=== PATIENT | male | born 1950 | race Caucasian/White ===

== ENCOUNTER 2018-04-20 10:20 | Emergency (ER) | payer MEDICARE ==
--- OUTSIDE RECORDS SUMMARY | 2018-04-20 10:32 | XMS REPORT ---
:1950 External Reference #:[id number] Author Organization [employer] Address [address] [place] [address] [place] [address] Phone [phone] Care Team Providers Name Role Phone Elizabeth Real AU.D. 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 Active Onset: 11/28/2014 Sensorineural hearing loss Laith Becerril M.D. Active Onset: 11/28/2014 Dysfunction of eustachian tube Laith Becerril M.D. Active Family History Date Family Member(s) Problem(s) Comments General Stroke General Cancer General Diabetes Social History Type Date Description Comments Lives With Spouse Occupation Retired Cigarette Use Quit 35 Years Ago Cigars Never Smoked Cigars Pipe Never Smoked A Pipe Smokeless Tobacco Never Used Smokeless Tobacco ETOH Use Denies alcohol use Smoking Patient has never smoked Allergies, Adverse Reactions, Alerts Date Description Reaction Status Severity Comments 11/28/2014 Penicillin hives, tongue swelling active 11/28/2014 Nortriptyline active 03/25/2018 Gabapentin active Medications Medication Date Status Form Strength Qnty SIG Indications Ordering Provider Metformin HCL Active Tablets 500mg TK 2 TS Unknown 000 PO bid. Furosemide 00/00/0 Active Tablets 40mg TK 1 T Unknown 000 PO qd Divalproex Active Tablets ER 250mg TK 3 TS Unknown Sodium ER 000 24HR PO bid Transderm-Scop Active Patches 1.5mg Place 1 Unknown 000 72HR Patch Onto The Skin Every 3 Days. Atorvastatin Active Tablets 10mg TK 1 T Unknown Calcium 000 PO qd Losartan Active Tablets 100mg TK 1 T Unknown Potassium 000 PO qd Potassium Active Tablets ER 20Meq TK 2 TS Unknown Chloride Angela ER 000 PO qd Amlodipine Active Unknown Besylate 000 Brilinta Active Unknown 000 Bydureon Active Unknown 000 Hydralazine HCL Active Unknown 000 Lamictal Active Unknown 000 Synthroid Active Unknown 000 Wellbutrin SR Active Unknown 000 Glipizide Hx Tablets 5mg TK 1 T Unknown 000 - PO qd 018 Lamotrigine Hx Tablets 100mg TK 1 T Unknown 000 - PO bid 018 Taztia XT Hx Caps ER 120mg TK One C Unknown 000 - 24HR PO qd 018 Vital Signs Date Vital Result Comment 03/25/2018 Height 65.25 inches 5'5.25" Weight 238.00 lb BP Systolic 118 mmHg BP Diastolic 66 mmHg Respiratory Rate 20 /min Body Temperature 97.1 F Pain Level 5 BMI (Body Mass Index) 39.3 kg/m2 11/28/2014 Heart Rate 78 /min BP Systolic Sitting 140 mmHg BP Diastolic Sitting 90 mmHg Results Description No Information Procedures Date CPT Code Description Status 11/28/2014 87055 Tympanometry Completed Encounters Type Date Location Provider CPT E/M Dx Office Visit 02/23/2018 11:40a [facility] Kim Villegas M.D. 05498 D64.9 Of [facility] AT [place] R63.4 R63.0 Z85.72 Office Visit 11/28/2014 3:00p [facility] Becerril, [address] [phone] C.M.[facility]da AT [place] Luis Miguel [phone] Plan of Care 03/25/2018 - Dayami Muse M.D.M25.562 Pain in left kneeNew Therapy:Physical TherapyFollow up:Follow up: [employer] authorization needed. Follow up appointment [place].M25.462 Effusion, left kneeM17.12 Unilateral primary osteoarthritis, left knee
[2018-04-20 11:27] LABS: ABS Basophils 0 10^3/ul (0-0.2); ABS Eosinophils 0.1 10^3/ul (0-0.6); ABS Lymphocytes 1.2 10^3/ul (1.0-4.8); ABS Monocytes 0.6 10^3/ul (0-0.8); ABS Neutrophils 10.3 10^3/ul (1.5-7.7); ABS Nucleated RBC 0 10^3/ul; Eosinophil % 0.6 % (0-6); Hematocrit 34 % (42-52); Hemoglobin 10.9 g/dl (14.0-18.0); Mean Corpuscular HGB Conc 32 g/dl (31-36); Mean Corpuscular Hemoglobin 24 pg (27-31); Mean Corpuscular Volume 75 fL (80-94); Mean Platelet Volume 7.8 um3 (7.4-10.4); Nucleated Red Blood Cells % 0.1; Platelet Count 428 10^3/ul (150-450); Red Blood Count 4.59 10^6/ul (4.00-5.40); Red Cell Distribution Width 20 % (10.5-15); White Blood Count 12.1 10^3/ul (3.5-10.8)
[2018-04-20 11:48] LABS: EGFR Non-African American 41.7 (>60)
[2018-04-20] MEDS ORDERED: NS 0.9% 500 ML* 500 ML IV ONE (12:06)
--- NOTE | 2018-04-20 12:29 | ED ---
Shortness of Breath - HPI Summary HPI Summary: This is scribe Raoul Benito documenting for attending Dr. Toni Mir MD. Dr. Luz Jeffers recieved report from patient's PCP, Dr. Villegas, that patient has cough, SOB, right-side discomfort, right-side pleural effusion. PCP recommends admission. A 67 y/o male presents to ED c/o difficulty breathing (SOB) since Friday (5 days ago). Additionally c/o generalized sickness, "feeling crappy". Currently, the patient still has SOB and it has been getting worse. In the ED room, the patient has a pulse of 75 BPM, O2 saturation of 98% and blood pressure of 103/ 56. As per triage, "difficulty breathing, states "feels like my right lung isn' t filling". pain to left abd with coughing. no recent illness, no COPD, x2 stents". According to the patient, he has had anemia and weakness for quite a while. Additionally he cannot "take a breathe" as his right lung is half-filled with fluid. It was noted in ED room that the patient has an unproductive cough, however, the patient stated that he has not had a productive cough. As per , the patient was clammy coming in by private car. PCP Dr. Villegas treated patient for lymphoma. She tested him because of his anemia and she wanted to make sure blood was normal. PMHx of bone marrow biopsy (2-3 weeks ago), Colonoscopy and Endoscopy on (4 days ago) at [facility] (to check for bleeding). Additional PMHx of 2 stents. Patient noted he lost weight recently. No current treatment from Dr. Villegas (sees every couple of weeks, previously it was twice a year). Denies any CHF. - History of Current Complaint Chief Complaint: EDShortnessOfBreath Time Seen by Provider: 04/20/18 10:39 Hx Obtained From: Patient Onset/Duration: Sudden Onset - 5 days ago, Lasting Days, Still Present, Worse Since - 5 days ago Timing: Constant Current Severity: None Dyspnea At: Rest Aggrevating Factors: Nothing Alleviating Factors: Nothing Associated Signs & Symptoms: Cough (Nonproductive) - In ED room, but patient denies it., Diaphoresis - Clammy upon arrival to ED. - Allergy/Home Medications Allergies/Adverse Reactions: Allergies Allergy/AdvReac Type Severity Reaction Status Date / Time fentanyl Allergy Hives Verified 04/20/18 10:30 gabapentin Allergy Swelling Verified 04/20/18 10:30 Iodinated Contrast- Oral and Allergy Hives Verified 04/20/18 10:30 IV Dye nortriptyline Allergy Swelling Verified 04/20/18 10:30 Of Face,Lips,& Throat Penicillins Allergy Hives Verified 04/20/18 10:30 Home Medications: Home Medications Aspirin EC TAB* [Ecotrin EC Low Dose 81 MG*] 81 mg PO DAILY 04/20/18 [History Confirmed 04/20/18] BuPROPion XL* [Bupropion XL*] 300 mg PO DAILY 04/20/18 [History Confirmed ] Furosemide TAB* [Lasix TAB*] 40 mg PO DAILY 04/20/18 [History Confirmed 04/20/18 ] Levothyroxine TAB* [Synthroid 75 MCG TAB*] 75 mcg PO DAILY 04/20/18 [History Confirmed 04/20/18] Losartan TAB* [Cozaar TAB*] 100 mg PO DAILY 04/20/18 [History Confirmed 04/20/18 ] Metoprolol Tartrate TAB* [Lopressor TAB*] 25 mg PO BID 04/20/18 [History Confirmed 04/20/18] Multivitamins/Minerals TAB* [Theragran/minerals TAB*] 1 tab PO DAILY 04/20/18 [ History Confirmed 04/20/18] Pioglitazone HCl [Actos] 45 mg PO DAILY 04/20/18 [History Confirmed 04/20/18] Potassium Chlor TAB* [Potassium Chlor TAB 20 MEQ*] 40 meq PO DAILY 04/20/18 [ History Confirmed 04/20/18] Rosuvastatin (NF) [Crestor (NF)] 40 mg PO DAILY 04/20/18 [History Confirmed 03/02] Ticagrelor* [Brilinta 90 MG*] 90 mg PO BID 04/20/18 [History Confirmed 04/20/18] amLODIPine TAB* [Norvasc 5 mg TAB*] 10 mg PO DAILY 04/20/18 [History Confirmed 04/20/18] lamoTRIgine TAB(*) [Lamictal TAB(*)] 100 mg PO BID 04/20/18 [History Confirmed 04/20/18] metFORMIN* [Glucophage 1000 MG TAB *] 1,000 mg PO BID 04/20/18 [History Confirmed 04/20/18] PMH/Surg Hx/FS Hx/Imm Hx Endocrine/Hematology History: Reports: Hx Diabetes Denies: Hx Systemic Lupus Erythematosus Cardiovascular History: Reports: Hx Hypertension Denies: Hx Congestive Heart Failure, Hx Pacemaker/ICD Respiratory History: Reports: Hx Asthma, Other Respiratory Problems/Disorders - HX OF LYMPHOMA IN REMISSION GI History: Reports: Other GI Disorders - PT HAD A PERIOD ON NAUSEA/VOMMITING DUE TO A MEDICATION History: Denies: Hx Dialysis, Hx Renal Disease Musculoskeletal History: Denies: Hx Rheumatoid Arthritis Sensory History: Denies: Hx Hearing Aid Psychiatric History: Reports: Hx Panic Disorder - Cancer History Cancer Type, Location and Year: MELANOMA AND LYMPHOMA. Hx Chemotherapy: Yes - Surgical History Surgery Procedure, Year, and Place: PROCEDURES REMOVAL OF SKIN CANCER dx WITH MELANOMA 2006. RECENTLY HAD NUMEROUS SPOTS REMOVED AND IS WAITING FOR THE RESULTS. NO RECENT SX. MULTIPLE SX FOR LYMPHOMA. shoulder surgery Infectious Disease History: No Infectious Disease History: Denies: Traveled Outside the [place] in Last 30 Days - Family History Known Family History: Positive: Cardiac Disease, Hypertension, Diabetes - Social History Alcohol Use: None Substance Use Type: Reports: None Smoking Status (MU): Former Smoker Type: Cigarettes, eCigarettes Amount Used/How Often: 2-3 PPD Length of Time of Smoking/Using Tobacco: 19 Years Have You Smoked in the Last Year: No Review of Systems Positive: Skin Diaphoresis - Upon arrival to ED. Negative: Fever, Chills Negative: Erythema Negative: Sore Throat Negative: Chest Pain Positive: Shortness Of Breath. Negative: Cough - Nonproductive cough in ED, patient denies. Negative: Abdominal Pain, Vomiting, Nausea Negative: dysuria, hematuria Negative: Myalgia, Edema Negative: Rash Neurological: Other - NEGATIVE: Dizziness Positive: Weakness - From anemia All Other Systems Reviewed And Are Negative: Yes Physical Exam - Summary Physical Exam Summary: Constitutional: Well-developed, Well-nourished, Alert. (-) Distressed Skin: Warm, Dry HENT: Normocephalic; Atraumatic Eyes: Conjunctiva normal Neck: Musculoskeletal ROM normal neck. (-) JVD, (-) Stridor, (-) Tracheal deviation Cardio: Rhythm regular, rate normal, Heart sounds normal; Intact distal pulses; The pedal pulses are 2+ and symmetric. Radial pulses are 2+ and symmetric. (-) Murmur Pulmonary/Chest wall: (-) Wheezes, (-) Rales. Absent breathe sounds on right lower lung. Abd: Soft, (-) epigastric tenderness, (-) Distension, (-) Guarding, (-) Rebound Musculoskeletal: (-) Edema Lymph: (-) Cervical adenopathy Neuro: Alert, Oriented x3 Psych: Mood and affect Normal Triage Information Reviewed: Yes Vital Signs On Initial Exam: Initial Vitals Temp Pulse Resp BP Pulse Ox 97.6 F 75 22 131/72 96 04/20/18 10:26 04/20/18 10:26 04/20/18 10:26 04/20/18 10:26 04/20/18 10:26 Vital Signs Reviewed: Yes Diagnostics - Vital Signs Vital Signs Temp Pulse Resp BP Pulse Ox 04/20/18 12:00 71 13 96/57 98 04/20/18 11:29 74 109/60 97 04/20/18 11:14 97 04/20/18 11:01 19 04/20/18 11:00 74 12 103/56 97 04/20/18 10:31 74 19 96 04/20/18 10:29 74 13 131/72 96 04/20/18 10:26 97.6 F 75 22 131/72 96 - Laboratory Lab Results: Lab Results 04/20/18 04/20/18 04/20/18 Range/Units 11:06 11:06 11:06 WBC 12.1 H (3.5-10.8) 10^3/ul RBC 4.59 (4.00-5.40) 10^6/ul Hgb 10.9 L (14.0-18.0) g/dl Hct 34 L (42-52) % MCV 75 L (80-94) fL MCH 24 L (27-31) pg MCHC 32 (31-36) g/dl RDW 20 H (10.5-15) % Plt Count 428 (150-450) 10^3/ul MPV 7.8 (7.4-10.4) um3 Neut % (Auto) 84.5 H (38-83) % Lymph % (Auto) 10.0 L (25-47) % [place] % (Auto) 4.6 (0-7) % Eos % (Auto) 0.6 (0-6) % Baso % (Auto) 0.3 (0-2) % Absolute Neuts (auto) 10.3 H (1.5-7.7) 10^3/ul Absolute Lymphs (auto) 1.2 (1.0-4.8) 10^3/ul Absolute Monos (auto) 0.6 (0-0.8) 10^3/ul Absolute Eos (auto) 0.1 (0-0.6) 10^3/ul Absolute Basos (auto) 0 (0-0.2) 10^3/ul Absolute Nucleated RBC 0 10^3/ul Nucleated RBC % 0.1 Sodium 134 L (135-145) mmol/L Potassium 4.3 (3.5-5.0) mmol/L Chloride 100 L (101-111) mmol/L Carbon Dioxide 25 (22-32) mmol/L Anion Gap 9 (2-11) mmol/L BUN 22 (6-24) mg/dL Creatinine 1.65 H (0.67-1.17) mg/dL Est GFR ( Amer) 50.4 (>60) Est GFR (Non-Af Amer) 41.7 (>60) BUN/Creatinine Ratio 13.3 (8-20) Glucose 366 H (70-100) mg/dL Lactic Acid 2.3 H* (0.5-2.0) mmol/L Calcium 9.3 (8.6-10.3) mg/dL Total Bilirubin 0.30 (0.2-1.0) mg/dL AST 11 L (13-39) U/L ALT 15 (7-52) U/L Alkaline Phosphatase 77 (34-104) U/L Troponin I 0.00 (<0.04) ng/mL Total Protein 6.4 (6.4-8.9) g/dL Albumin 3.0 L (3.2-5.2) g/dL Globulin 3.4 (2-4) g/dL Albumin/Globulin Ratio 0.9 L (1-3) Result Diagrams: 04/20/18 11:06 04/20/18 11:06 Lab Statement: Any lab studies that have been ordered have been reviewed, and results considered in the medical decision making process. - Radiology CXR Radiology Interpretation Completed By: Radiologist - CONSOLIDATIVE CHANGES AND/ OR PLEURAL FLUID RIGHT LUNG BASE. SUGGEST FOLLOW-UP. ED physician reviewed this radiology report. - EKG 1046 Cardiac Rate: NL - 72 BPM EKG Rhythm: Sinus Rhythm EKG Interpretation: RBBB, negative STEMI. Re-Evaluation - Re-Evaluation First Eval Re-Evaluation Time: 13:44 Comment: Patient is walking around ED with nursing staff. Course/Dx - Course Course Of Treatment: Dr. Luz Jeffers recieved report from patient's PCP, Dr. Villegas, that patient has cough, SOB, right-side discomfort, right-side pleural effusion. PCP recommends admission. A 67 y/o male presents to ED c/o difficulty breathing (SOB) since Friday (5 days ago). Additionally c/o generalized sickness, "feeling crappy". Currently, the patient still has SOB and it has been getting worse. In the ED room, the patient has a pulse of 75 BPM , O2 saturation of 98% and blood pressure of 103/56. A EKG revealed NSR of 72 BPM, RBBB, negative STEMI. A CXR revealed consolidative changes and/or pleural fluid right lung base. Suggest follow-up. In the ED course, the patient recieved IV fluids. During reevaluation, the patient was walking around ED with nursing staff. Patient care was discussed with Dr. Villegas who stated patient' s bone marrow biopsy was negative. Requested any pleural effusion sent to cytology and flow-cytometry. Additionally, patient care was discussed with Dr. Caldwell who accepts patient for admission. Patient will be admitted with a diagnosis of pleural effusion. Patient is agreeable with this plan. - Diagnoses Provider Diagnoses: Pleural effusion - Physician Notifications Discussed Care of Patient With: Kim Villegas Time Discussed With Above Provider: 12:24 Instructed by Provider To: Other - Bone marrow biopsy was negative. Requested any pleural effusion sent to cytology and flow-cytometry. CONSULT at [address] Caldwell who accepts patient for admission. Discharge - Sign-Out/Discharge Documenting (check all that apply): Patient Departure - ADMIT - Discharge Plan Condition: Stable Disposition: ADMITTED TO [facility] Patient Education Materials: Pleural Effusion (GEN) Referrals: Rojas Gaston MD [Medical Doctor] - 04/21/18 10:15 am Michele Wallace MD [Primary Care Provider] - (4-7 days) Additional Instructions: 1. Activity as tolerated. 2. Return to the ER for fever, chills, severe chest pain, worsened shortness of breath or any other concerning issues.
--- NOTE | 2018-04-20 15:20 | RAD ---
INDICATION: Short of breath COMPARISON: November 07, 2015 TECHNIQUE: An AP portable view obtained at 1135 hours is submitted. FINDINGS: Bones/Soft Tissues: There are no acute bony findings. Cardiomediastinal: The heart is normal in size. Lungs: There is airspace disease in the lower one half of the right lung base which is likely a combination of pleural fluid and compression atelectasis or infiltrate. The right upper chest and left hemithorax are clear. Pleura: As above. No left-sided effusion. Other: None IMPRESSION: CONSOLIDATIVE CHANGES AND/OR PLEURAL FLUID RIGHT LUNG BASE. SUGGEST FOLLOW-UP.
[2018-04-20 15:47] VITALS: BP 111/69
--- NOTE | 2018-04-20 20:03 | CONS ---
CC: Dr. Wallace; Dr. Moy; Dr. Villegas * CONSULTATION REPORT: DATE OF CONSULT: 04/20/18 - EMERGENCY DEPT PRIMARY CARE PROVIDER: Dr. Wallace. DELI CLERK: Dr. Moy. ONCOLOGIST: Dr. Villegas. CHIEF COMPLAINT: Shortness of breath. HISTORY OF PRESENT ILLNESS: Mr. Baugh is a 67-year-old male who has a history of non-Hodgkin's lymphoma that has been felt to be in remission, followed up recently with Dr. Villegas with a bone marrow biopsy; type 2 diabetes; hypertension; coronary artery disease and hyperlipidemia who presents to the emergency room with complaints of shortness of breath. The patient states that he has been worked up recently for anemia of unclear cause. He underwent colonoscopy and EGD this past in [place] that were reportedly negative. He notes that since the Friday of last week he has felt short of breath. This has continued through early today; however, currently he states that he feels much improved. The patient does report sleeping in a chair for the last 4 months, but not due to shortness of breath issues, but due to a left rotator cuff injury after a fall. The patient states that he is down approximately 30 pounds since December of this year and 40 pounds this year unintentionally. He denies any fevers or chills. He denies any lower extremity swelling. He does admit to a dry cough that began the Friday prior to admission. He denies any recent respiratory illnesses even dating back a few weeks. He has not had a febrile illness during that period of time either. PAST MEDICAL HISTORY: 1. History of non-Hodgkin's lymphoma. 2. Type 2 diabetes. 3. Hypertension. 4. Hyperlipidemia. 5. Coronary artery disease. PAST SURGICAL HISTORY: 1. Left shoulder surgery. 2. Melanoma removal. 3. Lymph node biopsy. MEDICATIONS: 1. Bupropion XL 300 mg p.o. daily. 2. Lamictal 100 mg p.o. b.i.d. 3. Synthroid 75 mcg p.o. daily. 4. Metformin 1000 mg p.o. b.i.d. 5. Losartan 100 mg p.o. daily. 6. Potassium chloride 40 mEq p.o. daily. 7. Lasix 40 mg p.o. daily. 8. Multivitamin 1 tab p.o. daily. 9. Aspirin 81 mg p.o. daily. 10. Brilinta 90 mg p.o. b.i.d. 11. Actos 45 mg p.o. daily. 12. Amlodipine 10 mg p.o. daily. 13. Crestor 40 mg p.o. daily. 14. Metoprolol tartrate 25 mg p.o. b.i.d. ALLERGIES: FENTANYL, GABAPENTIN, IODINATED CONTRAST, NORTRIPTYLINE, PENICILLIN. FAMILY HISTORY: Mom in her 70s of lymphoma. Dad also in his 70s of pancreatic cancer. SOCIAL HISTORY: The patient is a former smoker, he quit approximately 35 years ago, he smoked 2 to 3 packs per day for 10 to 12 years. He denies any alcohol use. He previously worked as an quality improvement engineer. He is . He has 2 children. His , Mark, would be his surrogate decision maker. REVIEW OF SYSTEMS: A complete 11-system review of systems is obtained. Pertinent positives and negatives are as HPI and in addition the patient does complain of anorexia over the last 4 months, occasional palpitations and vomiting when he gets into a coughing fit. Additionally, the patient complains of depression. The rest of the review of systems is negative. PHYSICAL EXAM: Blood pressure 111/69, pulse 72, respirations 18, temp 98, O2 sat 98% on room air. General: The patient is a well-developed middle-aged male seen sitting up in the stretcher, in no acute distress. HEENT: Pupils are equal and round. Extraocular muscles are intact. Oropharynx is clear. Oral mucosa is moist. The patient has perhaps some mild adenopathy felt within the right submandibular region. He states that his lymph nodes will get larger in size and then shrink from time to time at home. Cardiac: Normal S1, S2. Regular rate and rhythm. I do not appreciate any murmurs. There is no lower extremity edema. Pulmonary: Breath sounds are absent approximately two-thirds of the way up on the right, otherwise lungs are clear. Abdomen: Bowel sounds are present. Abdomen is soft, nontender, and nondistended. Musculoskeletal: There is no cyanosis or clubbing of the digits. There is full active range of motion of all 4 extremities. Skin is warm and dry. There are no rashes. Neuro : Cranial nerves II through XII are grossly intact. Sensation is intact to light touch throughout. Strength is 5/5 and symmetric in both upper and lower extremities bilaterally. Psych: The patient is alert. He is oriented x3. Affect appears appropriate. DIAGNOSTIC STUDIES/LAB DATA: WBC 12.1, hemoglobin 10.9, hematocrit 34, platelets 428,000. Sodium 134, potassium 4.3, chloride 100, CO2 of 25, BUN 22, creatinine 1.65, glucose 366, lactic acid 2.3, calcium 9.3. Bilirubin 0.3, AST 11, ALT 15, alk phos 77. Troponin 0. BNP 38. Albumin 3.0. EKG reveals a right bundle branch block and normal sinus rhythm. Chest x-ray reveals consolidative change and/or pleural fluid right lung base. ASSESSMENT AND PLAN: Mr. Baugh is a 67-year-old male who is sent to the emergency room from his primary care provider's office with complaints of shortness of breath and moderate-sized pleural effusion. 1. Probable right pleural effusion. Based on chest x-ray, this does appear to be a pleural effusion; however, prior to undergoing thoracentesis, perhaps ultrasound imaging would be useful to determine this truly is a large pocket of fluid. The etiology of the pleural effusion is unclear. The differential diagnosis would include congestive heart failure which seems unlikely given his low BNP, malignancy which is a potential given his history and infectious which also seems unlikely as the patient does not report any infectious symptoms and appears well despite having this probable effusion. The patient is on Brilinta making obtaining a thoracentesis somewhat more problematic. I was ultimately able to speak with Dr. Moy, the patient's primary quality control systems manager, who stated that the Brilinta could be held prior to performing the thoracentesis so as the patient can receive both diagnostic and therapeutic tap as opposed to just diagnostic alone. Once the thoracentesis is complete, he could be resumed back on his usual dose of Brilinta. As the patient wished to pursue only 1 attempt at thoracentesis and not 2, the decision was made to discharge the patient home from the emergency room and follow up with Dr. Gaston tomorrow in the clinic for consultation. An appointment has been scheduled with Dr. Gaston for 10:15 a.m. tomorrow, 04/21/18. At that point, the patient could then be scheduled for thoracentesis at his and the surgeon's convenience. 2. Lactic acidosis. I suspect this is from poor oral intake. The patient has also very mildly elevated creatinine above his baseline and low sodium, which also go along with volume depletion. The patient has received IV fluids in the emergency room. His labs will need to be followed up on as an outpatient. 3. Coronary artery disease. As above, the patient can temporarily come off Brilinta to have thoracentesis performed. Ideally, he would remain on aspirin for the procedure. He will also continue on his usual dose of Crestor and metoprolol. 4. Hypertension. The patient's blood pressure is under good control. He will continue on his usual home medication regimen. 5. Type 2 diabetes. The patient will continue on his usual regimen of metformin and Actos. His blood sugar in the emergency room was quite elevated at 366. The patient will need followup with his primary care provider to optimize his diabetes regimen. The patient has been instructed to return to the emergency room if he develops any fevers, chills, severe chest pain, worsening shortness of breath, or any other concerning symptoms. The patient is in agreement with the plan for discharge from the emergency room and has been provided instructions on the followup appointment tomorrow. TIME SPENT: Sixty-five minutes were spent on this consultation, of which greater than half spent [id number] with the patient and his reviewing his history, performing a physical exam, as well as arranging outpatient followup. [id number]/[facility] #: [id number] [place]
== END 2018-04-20 15:47 | disposition home or self-care (01) ==
LOC: ED 10:20
DX: J90 Pleural effusion, not elsewhere classified (principal); I45.10 Unspecified right bundle-branch block; I10 Essential (primary) hypertension; E11.9 Type 2 diabetes mellitus without complications; I25.10 Atherosclerotic heart disease of native coronary artery without angina pectoris; E78.5 Hyperlipidemia, unspecified; Z79.82 Long term (current) use of aspirin; Z79.899 Other long term (current) drug therapy; Z79.84 Long term (current) use of oral hypoglycemic drugs; Z85.72 Personal history of non-Hodgkin lymphomas; Z87.891 Personal history of nicotine dependence; Z88.8 Allergy status to other drugs, medicaments and biological substances; Z88.0 Allergy status to penicillin; Z91.041 Radiographic dye allergy status
CPT/HCPCS: 36415; 71045; 80053; 83605; 83880; 84484; 85025; 93005; 96360; 96361; 99284

== ENCOUNTER → 2018-04-21 12:03 | Day surgery (SDC) | payer MEDICARE ==
[~2018-04-21 12:03] MED LIST: Lidocaine 1% INJ* 10 MG/ML 30 ML SDV ONE
--- NOTE | 2018-04-21 14:37 | RAD ---
Indication: Right thoracentesis. Single frontal view of the chest performed at 1420 hours was reviewed. Comparison is made with previous exam dated April 20, 2018. No mediastinal shift is noted. Heart is of normal size and configuration. Lung medrano appear clear. No pneumothorax is noted after thoracentesis. Right pleural effusion is significantly decreased. IMPRESSION: NO ACTIVE CARDIOPULMONARY DISEASE IS NOTED. RIGHT PLEURAL EFFUSION IS DECREASED.
--- NOTE | 2018-04-21 22:19 | OP ---
CC: Dr. Wallace; Dr. Villegas * DATE OF OPERATION: 04/21/18 - [facility] DATE OF : 48 SURGEON: Rojas Gaston MD BOARD FINISHER: None. ANESTHESIOLOGIST: None. PRE-OP DIAGNOSIS: Right pleural effusion. POST-OP DIAGNOSIS: Right pleural effusion. OPERATIVE PROCEDURE: Right posterior thoracentesis. DESCRIPTION OF PROCEDURE: The patient was sitting at the bedside in the surgical procedure room. The laterality was confirmed with the nurse and the right posterior chest was prepped with antiseptic and draped in a sterile fashion. Local infiltrative anesthesia was administered and a 5-[place] Islander thoracentesis catheter was used to enter the pleural space after identifying fluid with a 25-gauge needle. Chest was entered in approximately the 9th interspace coming just above the rib and clear yellow fluid was forthcoming. A total of nearly 2 L was removed and specimens were sent to laboratory for analysis. He tolerated the procedure well. Catheter was removed. Bandage was placed and he has discharge instructions. I will be happy to see him back should the need arise. [id number]/[facility] #: [id number] MTDD
== END | disposition home or self-care (01) ==
LOC: OR 12:03
PROVIDERS: ATTEND Surgery
DX: J91.0 Malignant pleural effusion (principal); R06.02 Shortness of breath
CPT/HCPCS: 32554; 36415; 71045; 83615; 84157; 84315; 87070; 87205; 88112; 88184; 88185; 88187; 88188; 88189; 88305; 88341; 88342; 88360; 89051

== ENCOUNTER 2018-04-29 12:25 | Inpatient (IN) | payer MEDICARE ==
[2018-04-29] MEDS ORDERED: Acetaminophen TAB* 325 MG PO PRN (14:19)
--- OUTSIDE RECORDS SUMMARY | 2018-04-29 14:26 | XMS REPORT ---
:1950 External Reference #:[id number] Author Organization [facility] [employer] [facility] [employer] Address [address] [place] [address] [place] [address] Phone [phone] Care Team Providers Name Role Phone Michele Wallace MD Primary Care Physician Unavailable Payers Type Date Identification Numbers Payment Provider Subscriber Medicare Primary Policy Number: [id number] Medicare Silvestre Baugh PayID: [id number] [address] [place] [address] [facility] Part [facility] Policy Number: [id number] [facility] Silvestre Baugh PayID: [id number] [address] [place] [address] Problems Date Description Provider Status Onset: 03/25/2018 Localized, primary osteoarthritis Dayami Muse M.D. Active Onset: 11/28/2014 Sensorineural hearing loss Laith Becerril M.D. Active Onset: 11/28/2014 Dysfunction of eustachian tube Laith Becerril M.D. Active Family History Date Family Member(s) Problem(s) Comments General Stroke General Cancer General Diabetes General Heart Disease General Hypertension Social History Type Date Description Comments Lives With Spouse Occupation Retired Cigarette Use Quit 35 Years Ago Cigars Never Smoked Cigars Pipe Never Smoked A Pipe Smokeless Tobacco Never Used Smokeless Tobacco ETOH Use Denies alcohol use Smoking Patient is a former smoker Allergies, Adverse Reactions, Alerts Date Description Reaction Status Severity Comments 11/28/2014 Penicillin hives, tongue swelling active 11/28/2014 Nortriptyline Anaphylaxis active 03/25/2018 Gabapentin active swelling 04/20/2018 Fentanyl active hives 04/20/2018 Iodinated Diagnostic active hives Agents Medications Medication Date Status Form Strength Qnty SIG Indications Ordering Provider Metformin HCL Active Tablets 500mg TK 2 TS Unknown 000 PO bid. Furosemide Active Tablets 40mg TK 1 T PO Unknown 000 qd Transderm-Scop Active Patches 1.5mg Place 1 Unknown 000 72HR Patch Onto The Skin Every 3 Days. Atorvastatin Active Tablets 10mg TK 1 T PO Unknown Calcium 000 qd Losartan Active Tablets 100mg TK 1 T PO Unknown Potassium 000 qd Potassium Active Tablets ER 20Meq TK 2 TS Unknown Chloride Angela ER 000 PO qd Amlodipine Active 10mg 1 tab Unknown Besylate 000 daily Brilinta Active 90mg 1 tab Unknown 000 twice a day Wellbutrin SR Active 300mg daily Unknown 000 Levothyroxine Active Tablets 75mcg 1 by Unknown Sodium 000 mouth every day Metoprolol Active Tablets 25mg 1 by Unknown Tartrate 000 mouth twice a day Multi Vitamin Active Tablets 1 by Unknown 000 mouth every day Actos Active Tablets 45mg 1 by Unknown 000 mouth every day Rosuvastatin Active Tablets 40mg take one Unknown Calcium 000 tablet daily Lamotrigine Active Tablets 100mg 1 by Unknown 000 mouth twice a day Divalproex Hx Tablets ER 250mg TK 3 TS Unknown Sodium ER 000 24HR PO bid Glipizide Hx Tablets 5mg TK 1 T PO Unknown 000 - qd 018 Lamotrigine Hx Tablets 100mg TK 1 T PO Unknown 000 - bid 018 Taztia XT Hx Caps ER 120mg TK One C Unknown 000 - 24HR PO qd 018 Bydureon Hx Unknown 000 Hydralazine HCL Hx Unknown 000 Lamictal Hx Unknown 000 Synthroid Hx Unknown 000 Vital Signs Date Vital Result Comment 04/21/2018 Height 66 inches 5'6" Weight 224.00 lb Heart Rate 74 /min BP Systolic 138 mmHg BP Diastolic 80 mmHg Respiratory Rate 20 /min Body Temperature 97.0 F BMI (Body Mass Index) 36.2 kg/m2 03/25/2018 Height 65.25 inches 5'5.25" Weight 238.00 lb BP Systolic 118 mmHg BP Diastolic 66 mmHg Respiratory Rate 20 /min Body Temperature 97.1 F Pain Level 5 BMI (Body Mass Index) 39.3 kg/m2 11/28/2014 Heart Rate 78 /min BP Systolic Sitting 140 mmHg BP Diastolic Sitting 90 mmHg Results Description No Information Procedures Date CPT Code Description Status 11/28/2014 57979 Tympanometry Completed Encounters Type Date Location Provider CPT E/M Dx Office Visit 03/25/2018 [facility] Dayami Muse M.D. 99685 M25.562 9:30a [facility] M25.462 M17.12 W19.xxxA Office Visit 03/23/2018 11:20a [facility] Kim Villegas M.D. 06226 D64.9 Of [employer] [facility] R63.4 R63.0 Z85.72 Office Visit 03/09/2018 11:40a [facility] Kim Villegas M.D. 01572 D64.9 [employer] [facility] R63.4 R63.0 N18.9 Z85.72 Office Visit 02/23/2018 11:40a [facility] Kim Villegas M.D. 94333 D64.9 [employer] [facility] R63.4 R63.0 Z85.72 Office Visit 11/28/2014 3:00p [facility] Becerril, [address] 381.81 [facility] [place] 389.10 Plan of Care 04/21/2018 - Rojas Gaston M.D.J90 Pleural effusion, not elsewhere classifiedFollow up:OR
--- NOTE | 2018-04-29 15:01 | RAD ---
INDICATION: Increased shortness of breath. COMPARISON: Comparison is made with a prior study from April 28, 2018. TECHNIQUE: Dual-energy PA and lateral views of the chest were obtained. FINDINGS: The heart is within normal limits in size. There is a moderate size right pleural effusion which has increased slightly in size. The left lung appears clear. IMPRESSION: MODERATE SIZE RIGHT PLEURAL EFFUSION INCREASED IN SIZE.
[2018-04-29] MEDS ORDERED: Insulin GLARGINE(*) 1 UNITS UNIT SUBCUT SCH (17:00)
[2018-04-29] MEDS ORDERED: guaiFENesin/CODIEN 100MG-10MG* 5 ML UDC PO PRN (17:22)
[2018-04-29] MEDS ORDERED: Insulin LISPRO* 1 UNITS UNIT SUBCUT ONE (19:00)
[2018-04-29] MEDS: Morphine INJ* 2 MG/ML 1 ML SYRINGE (TWO MG - NEW SYRINGE VERSION) IV PRN (20:06)
[2018-04-29] MEDS: lamoTRIgine TAB(*) 100 MG PO SCH (21:15)
[2018-04-29] MEDS: Insulin LISPRO* 1 UNITS UNIT SUBCUT SCH (21:16)
[2018-04-29] MEDS: predniSONE TAB* 50 MG PO SCH (21:16)
[2018-04-29] MEDS: NS 0.9% 1000 ML* 1,000 ML IV SCH (21:30)
--- NOTE | 2018-04-29 22:56 | HP ---
CC: Dr. Wallace; Dr. Kim Villegas* ADMISSION HISTORY AND PHYSICAL: DATE OF ADMISSION: 04/29/18 PRIMARY CARE PROVIDER: Dr. Wallace. PRIMARY ONCOLOGIST: Dr. Kim Villegas. ATTENDING PHYSICIAN: Dr. Shon Cadet* (dictated by JODEE Matias). CONSULTING SURGEON: Dr. Gaston. CHIEF COMPLAINT: Increased shortness of breath and dizziness. HISTORY OF PRESENT ILLNESS: This is a very unfortunate 67-year-old gentleman, who was recently diagnosed with metastatic pancreatic cancer, who was seen by his medical oncologist, Dr. Kim Villegas yesterday, after pathology returned from a pleural effusion, which was consistent with adenocarcinoma of the pancreatic or biliary origin. Routine labs were completed yesterday, which showed significant hyperglycemia, acute kidney injury, and hyponatremia. The patient had reported that he was having difficulty tolerating his metformin and had vomited a couple of times associated with coughing and the patient was asked to return to the oncology office today for hydration. The patient received 2 L of normal saline in the chemotherapy suite and after completing his infusion, he reported increased shortness of breath and feelings of dizziness. The patient reported discomfort in his right lateral chest area. No associated sharp pain, some mild shortness of breath. Dizziness was mild at rest and increased with activity. The patient was found to be hypotensive with blood pressures in low 100s to upper 90s before, during, and after his infusion of saline. The patient is typically on metformin and Actos at home for his diabetes. It is not clear how well controlled his glucose typically is. The patient had been complaining of some increased shortness of breath and cough that was keeping him up at night and worse when lying flat, when seen in the office yesterday and arrangements had been made for an outpatient thoracentesis with Dr. Gaston with plans for a PleurX catheter and port placement to initiate chemotherapy for his newly diagnosed cancer. Given the patient's increased symptoms following hydration, concerns that his pleural effusion had increased in size and recommendation was made per at least an overnight observation stay in the hospital for symptom management and expedite his thoracentesis. PAST MEDICAL HISTORY: 1. Marginal zone lymphoma - diagnosed in 1998, previously treated with Rituxan , but no recent therapy. 2. Non-insulin dependent diabetes. 3. Obesity. 4. Asthma. 5. Hyperlipidemia. 6. Hypertension. 7. Early stage melanoma. 8. Bipolar disorder. PAST SURGICAL HISTORY: 1. Lymph node biopsy. 2. Melanoma resection. SOCIAL HISTORY: The patient is . He has a history of smoking with unclear number of packets, but quit more than 45 years ago. He has no history of distant alcohol intake. Prior history of marijuana use. REVIEW OF SYSTEMS: A complete review of systems completed, all negative with the exception of what has been noted in the HPI. PHYSICAL EXAMINATION GENERAL: This is a mildly ill-appearing 67-year-old male, in no acute distress , accompanied by his . VITAL SIGNS: Temperature 98.4 degrees Fahrenheit, pulse 76 beats per minute, respiratory rate 16 per minute, oxygen saturation 100% on room air, blood pressure 118/44 mmHg. HEENT: Head is normocephalic, atraumatic. Mucous membranes are pink and moist. No evidence of thrush. NECK: Neck is supple and free of lymphadenopathy. RESPIRATORY: Few breath sounds appreciated on the right side. The left lung medrano are clear to auscultation. CARDIOVASCULAR: Heart has regular rate and rhythm without murmurs, rubs or gallops. ABDOMEN: Abdomen is soft, nontender to palpation. EXTREMITIES: No significant lower extremity edema. SKIN: No concerning rashes or lesions. DIAGNOSTIC STUDIES/LAB DATA: CBC: White blood cell count of 11,000, hemoglobin of 10.3 g/dL and platelet count of 353,000. Comprehensive metabolic panel shows a sodium of 131, potassium of 4.8, BUN is 38 , creatinine of 1.81, glucose is 430. Transaminases and total bilirubin are unremarkable. Imaging: Chest x-ray shows moderate-sized right pleural effusion slightly increase in size from prior image. ASSESSMENT AND PLAN: This is a 67-year-old gentleman with a history of marginal cell lymphoma as well as non-insulin dependent diabetes, hypertension, hyperlipidemia, obesity, and newly diagnosed metastatic pancreatic cancer, who presented to the medical oncology office today for IV hydration with complaints of increased shortness of breath and associated dizziness following hydration with concerns for increase in size of his right pleural effusion. Recommended admission for observation stay. 1. Right-sided pleural effusion - Recent increase in size and associated symptoms. Plan for thoracentesis with PleurX catheter placement with Dr. Gaston tomorrow. Apply supplemental oxygen, p.r.n. morphine for chest pain or significant air hunger prior to that. 2. Hyperglycemia with associated type 2 diabetes - no associated acidosis - no recent hemoglobin A1c available for review, but suspect that his diabetes has been poorly controlled for quite sometime. We will check hemoglobin A1c tomorrow. At this time, we will start a basal bolus regimen and hold his metformin due to his renal insufficiency. 3. Acute kidney injury - may be secondary to hypovolemia related to hyperglycemia - we will plan to continue IV hydration and repeat labs tomorrow. 4. Metastatic pancreatic cancer - initial plans for staging scan with PET CT, which will be replaced with a contrasted CT of the chest, abdomen, and pelvis due to his metformin use for hyperglycemia. This will be ordered. This will be completed during his hospitalization. Plan is to start treatment shortly with gemcitabine and Abraxane. Port placement is pending for tomorrow with Dr. Gaston. 5. Hypertension - hold the antihypertensives at this time. 6. Hyperlipidemia. 7. Obesity with a BMI of 47. 8. DVT prophylaxis - heparin 5000 units q.8 hours subcu, hold morning dose for port placements and thoracentesis. 9. Code status is full. 10. Healthcare proxy is his . 11. Disposition. Observation stay with anticipated length of stay to be less than 2 midnights. JODEE MATIAS [id number]/[facility] #: [id number] MTDD
[2018-04-30] MEDS: Morphine INJ* 2 MG/ML 1 ML SYRINGE (TWO MG - NEW SYRINGE VERSION) IV PRN ×3 (00:33→22:15)
[2018-04-30] MEDS: predniSONE TAB* 50 MG PO SCH ×2 (03:09→11:31)
[2018-04-30] MEDS: NS 0.9% 1000 ML* 1,000 ML IV SCH (04:37)
[2018-04-30] MEDS: Levothyroxine TAB* 75 MCG TAB PO SCH (06:15)
[2018-04-30 07:05] LABS: ABS Basophils 0 10^3/ul (0-0.2); ABS Eosinophils 0 10^3/ul (0-0.6); ABS Lymphocytes 0.8 10^3/ul (1.0-4.8); ABS Monocytes 0.1 10^3/ul (0-0.8); ABS Neutrophils 11.7 10^3/ul (1.5-7.7); ABS Nucleated RBC 0 10^3/ul; Eosinophil % 0 % (0-6); Hematocrit 35 % (42-52); Lymphocyte % 6.4 % (25-47); Mean Corpuscular HGB Conc 32 g/dl (31-36); Mean Corpuscular Hemoglobin 24 pg (27-31); Mean Corpuscular Volume 75 fL (80-94); Mean Platelet Volume 8.3 um3 (7.4-10.4); Nucleated Red Blood Cells % 0; Platelet Count 470 10^3/ul (150-450); Red Blood Count 4.68 10^6/ul (4.00-5.40); Red Cell Distribution Width 20 % (10.5-15); White Blood Count 12.5 10^3/ul (3.5-10.8)
[2018-04-30 07:24] LABS: INR 1.02 (0.77-1.02)
--- NOTE | 2018-04-30 07:33 | PN ---
Progress Note - Progress Note Date of Service: 04/30/18 SOAP: Subjective: quite ornary this am that his inpatient schedule does not line up with the purposed outpatient schedule. frustrated with being NPO. still w SOB Objective: Vital Signs Temp Pulse Resp BP Pulse Ox 98.0 F 97 19 135/48 93 04/30/18 03:56 04/30/18 03:56 04/30/18 03:56 04/30/18 03:56 04/30/18 03:56 sitting up in nad did not exam 2/2 his irritation and transport coming for OR Laboratory Results - last 24 hr 04/29/18 04/29/18 04/29/18 16:56 17:04 17:04 WBC RBC Hgb Hct MCV MCH MCHC RDW Plt Count MPV Neut % (Auto) Lymph % (Auto) Laurens % (Auto) Eos % (Auto) Baso % (Auto) Absolute Neuts (auto) Absolute Lymphs (auto) Absolute Monos (auto) Absolute Eos (auto) Absolute Basos (auto) Absolute Nucleated RBC Nucleated RBC % POC Glucose (mg/dL) 423 H* Glucose Meter Confirm 419 H Hemoglobin A1c 10.6 H 04/29/18 04/30/18 04/30/18 21:02 06:23 06:40 WBC 12.5 H RBC 4.68 Hgb 11.0 L Hct 35 L MCV 75 L MCH 24 L MCHC 32 RDW 20 H Plt Count 470 H D MPV 8.3 Neut % (Auto) 93.0 H Lymph % (Auto) 6.4 L Laurens % (Auto) 0.5 Eos % (Auto) 0 Baso % (Auto) 0.1 Absolute Neuts (auto) 11.7 H Absolute Lymphs (auto) 0.8 L Absolute Monos (auto) 0.1 Absolute Eos (auto) 0 Absolute Basos (auto) 0 Absolute Nucleated RBC 0 Nucleated RBC % 0 POC Glucose (mg/dL) 320 H 369 H Glucose Meter Confirm Hemoglobin A1c Acetaminophen (Tylenol Tab*) 650 mg PO Q4H PRN PRN Reason: FEVER/PAIN Bupropion HCl (Bupropion Xl*) 300 mg PO DAILY MARLON Diphenhydramine HCl (Benadryl Po*) 50 mg PO ONCE ONE Stop: 04/30/18 09:01 Guaifenesin/Codeine Phosphate (Robitussin Ac 100mg-10mg*) 15 ml PO Q4H PRN PRN Reason: COUGH Last Admin: 04/29/18 17:43 Dose: 15 ml Sodium Chloride (Ns 0.9% 1000 Ml*) 1,000 mls @ 150 mls/hr IV PER RATE [facility] Last Admin: 04/30/18 04:37 Dose: 150 mls/hr Insulin Glargine (Lantus(*)) 10 units SUBCUT Q24H [facility] Last Admin: 04/29/18 17:43 Dose: 10 unit Insulin Human Lispro (Humalog*) 0 units SUBCUT ACHS [facility]; Protocol Last Admin: 04/29/18 21:16 Dose: 8 units Lamotrigine (Lamictal Tab(*)) 100 mg PO BID [facility] Last Admin: 04/29/18 21:15 Dose: 100 mg Levothyroxine Sodium (Synthroid Tab*) 75 mcg PO DAILY@0600 [facility] Last Admin: 04/30/18 06:15 Dose: 75 mcg Morphine Sulfate (Morphine Inj ((Syringe))*) 2 mg IV Q4H PRN PRN Reason: PAIN - MILD Last Admin: 04/30/18 00:33 Dose: 2 mg Prednisone (Deltasone Tab*) 50 mg PO 2100,0300,0900 [facility] Stop: 04/30/18 09:01 Last Admin: 04/30/18 03:09 Dose: 50 mg Assessment: 67 yo M w newly diagnosed metastatic pancreaticobiliary cancer admitted with increased respiratory distress, acute on chronic renal failure from nausea/ vomiting and dehydration. Plan: -to OR now for pleurex catheter and port -will get staging scans after this IF creatinine improved will do IV, if not PO only (premedicated) -cont IVFs DM: very poorly controlled HbA1c 10 diabetic nurse educator consultation -increase lantus to 15U tonight -holding metformin given scan ARF: check lytes/cr this am cont ivfs -hold off on contrast if not improved full code add DVT prophylaxis after procedure resume brilinta for CAD
[2018-04-30 07:37] LABS: EGFR Non-African American 37.5 (>60)
[2018-04-30] MEDS ORDERED: Clindamycin 900 MG IVPREMIX(* 900 MG/50 ML SDV IV ONE (08:31)
[2018-04-30] MEDS ORDERED: Insulin LISPRO* 1 UNITS UNIT SUBCUT ONE ×3 (08:55→22:38)
[2018-04-30] MEDS: Insulin LISPRO* 1 UNITS UNIT SUBCUT SCH ×4 (08:56→22:42)
[2018-04-30] MEDS ORDERED: diPHENhydraMINE PO* 50 MG PO ONE (09:00)
[2018-04-30] MEDS ORDERED: DiMENhydriNATE IV* 50 MG/ML VIAL IV PUSH PRN (10:52)
[2018-04-30] MEDS ORDERED: Naloxone* 0.4 MG/ML 1 ML VIAL IV PRN (10:52)
[2018-04-30] MEDS ORDERED: Morphine INJ* 2 MG/ML 1 ML SYRINGE (TWO MG - NEW SYRINGE VERSION) IV PRN (10:52)
[2018-04-30] MEDS ORDERED: Morphine INJ* 2 MG/ML 1 ML SYRINGE (TWO MG - NEW SYRINGE VERSION) ONE (11:03)
--- NOTE | 2018-04-30 11:10 | RAD ---
INDICATION: Power port central venous catheter placement. COMPARISON: Comparison is made with prior chest x-ray study from April 29, 2018. TECHNIQUE: A portable view of the chest was obtained. FINDINGS: There is a power port central venous catheter present entering on the right side. The catheter tip projects over the region of the right atrium. The heart is within normal limits in size. The lungs are underinflated and grossly clear. There is a small right pleural effusion which has decreased in size. No pneumothorax is seen. IMPRESSION: 1. STATUS POST CENTRAL VENOUS CATHETER PLACEMENT, NO EVIDENCE FOR PNEUMOTHORAX IS SEEN. 2. SMALL RIGHT PLEURAL EFFUSION DECREASED IN SIZE.
--- NOTE | 2018-04-30 12:00 | RAD ---
Amended report to correct patient account number. INDICATION: RIGHT side PowerPort placement. Technique: 5.2 seconds of fluoroscopy was provided for the physician proceduralist. REPORT: Spot images document a RIGHT side implanted infusion port. IMPRESSION: Procedural control films. CPT II Codes: G9500 MTDD
[2018-04-30] MEDS: lamoTRIgine TAB(*) 100 MG PO SCH ×2 (16:33→22:16)
[2018-04-30] MEDS: BuPROPion XL* 300 MG TAB.XL PO SCH (16:33)
--- NOTE | 2018-04-30 16:46 | RAD ---
Indication: Pancreatic cancer staging. CT of the chest, abdomen and pelvis was performed without IV contrast. Oral contrast was administered. Coronal and sagittal reconstructed images were obtained. Comparison is made with previous exam dated May 12, 2014. Inferior thyroid lobe demonstrates calcifications in the lower pole of the right lobe of the thyroid. Small right peritracheal lymph nodes are noted measuring 6 mm. Subcarinal lymph node measuring up to 14 mm is noted. No other adenopathy is noted in the mediastinum. The heart demonstrates small pericardial effusion. The trachea and major bronchi appear patent. There is moderate size right pleural effusion with a chest tube in place. A small left pleural effusion is also noted. Bibasilar atelectasis is noted. No focal nodules are noted. CT of the abdomen demonstrates liver to be normal in size. No focal lesions are identified. No intrahepatic duct dilatation is noted. The gallbladder demonstrates no definite calcified gallstones. The pancreas demonstrates no pancreatic duct dilatation. In the region of the tail of the pancreas there is a ill-defined mass measuring approximately 6.3 x 5.1 cm which is not clearly pancreatic in origin. Previous exam demonstrates foreshortening of the pancreatic tail. Alternatively this may represent an adrenal mass. Right adrenal gland is unremarkable. Perinephric infiltration of fat is noted surrounding both kidneys. The spleen is otherwise unremarkable. Common duct is not dilated. No dilated loops of bowel are noted. Ill-defined mesenteric mass is noted. 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 No retroperitoneal adenopathy is noted. No evidence of abdominal aortic aneurysm is noted. CT of the pelvis demonstrates urinary bladder is partially collapsed. Small amount of free fluid is noted in the pelvis. No hernias are noted. No dilated loops of bowel are noted. The colon is filled with stool. The bony structures demonstrate multilevel degenerative disc disease in the spine without gross lytic or blastic lesions. IMPRESSION: CT of the chest demonstrates right paratracheal and subcarinal lymph node which is mildly enlarged. A small pericardial effusion is noted. Small bilateral pleural effusion right greater than left with right basilar atelectasis. Right chest tube is in place. No definite hepatic lesions are noted. Ill-defined mass in the region of the tail of the pancreas measures 6.3 x 5.1 cm. Although this is in the region of the tail of the pancreas, prior CT dated 2013 demonstrates a foreshortened pancreas. Alternatively this may represent ill-defined adrenal mass. Other etiologies is not excluded. The kidneys demonstrate perinephric infiltration of fat consistent with inflammatory changes. Ill-defined soft tissue is noted surrounding the root of the mesentery suspicious for mesenteric panniculitis. Small amount of free fluid is noted in the pelvis.
[2018-04-30] MEDS ORDERED: Insulin GLARGINE(*) 1 UNITS UNIT SUBCUT SCH (17:00)
[2018-04-30] MEDS: Morphine VIAL* 4 MG/ML VIAL (1 ml vial) IV PRN (18:20)
[2018-04-30] MEDS ORDERED: Dextrose 50% Syringe 50 ML* 25 GM/50 ML SYRINGE IV PUSH PRN (22:38)
--- NOTE | 2018-05-01 01:47 | OP ---
Amended report to correct patient account number. CC: Dr. Rojas Gaston; Dr. Villegas; Dr. Wallace* OPERATIVE REPORT: DATE OF OPERATION: 04/30/18. DATE OF : 48. SURGEON: Rojas Gaston MD. RESIDENT CARE AID: None. ANESTHESIOLOGIST: Dr. Patrick. ANESTHESIA: LMAC anesthesia. PRE-OP DIAGNOSIS: Malignant right pleural effusion. POST-OP DIAGNOSIS: Malignant right pleural effusion. OPERATIVE PROCEDURE: Placement of right PleurX catheter and placement of right subclavian 8-Macanese PowerPort. DESCRIPTION OF PROCEDURE: The patient was supine on the operating room table. After adequate intervenous sedation, compression stockings, Douglas Hugger warmer, and intravenous antibiotics. A roll was placed on the right scapula along the right arm inclined across the body. The right lateral chest was prepped with antiseptic and draped in a sterile fashion. Local infiltrative anesthesia was administered and a skinny needle in the posterior axillary line was used to identify the pleural fluid and then a larger needle and a guidewire were placed. The catheter was tunneled from an anterior side out to the posterior site and entered through the Peel-Away introducer. The fluid was clear and approximately 2 L of fluid was forthcoming. The posterior incision was closed with 3-0 Vicryl and the skin exit site. The catheter was secured using silk suture. Sterile dressing was placed. He tolerated the procedure well. He was then placed in the supine position and the right neck and chest region were prepped with antiseptic and draped in a sterile fashion. Local infiltrative anesthesia was administered and approximately 3 cm subclavian incision was created. Inferior pocket was created and subclavian venipuncture was carried out. Guidewire passed and then the catheter passed through the Peel-Away introducer and measured and cut at 24 cm and attached to the port, which was sutured in the pocket with 2-0 Prolene. The port had good blood return and it was flushed with saline and sutured and heparinized solution. Closure was accomplished using 3-0 and 5-0 Vicryl followed by Steri-Strips. The port was accessed and the Tegaderm dressing was placed. He tolerated the procedure well and was brought to recovery in good condition. No complications. No drains. No pathologic specimens. Sponge and instrument counts were correct. Estimated blood loss is almost nil. [id number]/[facility] #: [id number] [facility]
[2018-05-01] MEDS: Morphine VIAL* 4 MG/ML VIAL (1 ml vial) IV PRN ×2 (01:56→11:25)
[2018-05-01] MEDS: NS 0.9% 1000 ML* 1,000 ML IV SCH ×3 (03:51→18:45)
[2018-05-01] MEDS: Levothyroxine TAB* 75 MCG TAB PO SCH (06:14)
[2018-05-01] MEDS: Morphine INJ* 2 MG/ML 1 ML SYRINGE (TWO MG - NEW SYRINGE VERSION) IV PRN ×2 (06:15→11:18)
[2018-05-01 07:01] LABS: ABS Basophils 0.1 10^3/ul (0-0.2); ABS Eosinophils 0 10^3/ul (0-0.6); ABS Lymphocytes 1.7 10^3/ul (1.0-4.8); ABS Monocytes 0.7 10^3/ul (0-0.8); ABS Neutrophils 12.1 10^3/ul (1.5-7.7); ABS Nucleated RBC 0 10^3/ul; Eosinophil % 0.2 % (0-6); Hematocrit 32 % (42-52); Hemoglobin 10.2 g/dl (14.0-18.0); Lymphocyte % 11.8 % (25-47); Mean Corpuscular HGB Conc 32 g/dl (31-36); Mean Corpuscular Hemoglobin 24 pg (27-31); Mean Corpuscular Volume 75 fL (80-94); Mean Platelet Volume 8.1 um3 (7.4-10.4); Nucleated Red Blood Cells % 0; Platelet Count 438 10^3/ul (150-450); Red Cell Distribution Width 20 % (10.5-15); White Blood Count 14.7 10^3/ul (3.5-10.8)
[2018-05-01 07:16] LABS: EGFR Non-African American 36.5 (>60)
[2018-05-01] MEDS: BuPROPion XL* 300 MG TAB.XL PO SCH (09:54)
[2018-05-01] MEDS: Insulin LISPRO* 1 UNITS UNIT SUBCUT SCH ×4 (09:54→20:36)
[2018-05-01] MEDS: Aspirin EC TAB* 81 MG TAB.EC PO SCH (09:55)
[2018-05-01] MEDS: lamoTRIgine TAB(*) 100 MG PO SCH ×2 (09:55→20:35)
[2018-05-01] MEDS: Ticagrelor* 90 MG TAB PO SCH ×2 (09:55→20:36)
[2018-05-01] MEDS ORDERED: Perflutren Lipid Microsphere* 3 ML VIAL ONE (10:27)
--- NOTE | 2018-05-01 12:22 | ECHO ---
Patient: ABIMBOLA KU [facility] Rec#: [id number] : 1950 Date: 05/01/2018 Age: 67y Height: 168 cm / 66.1 in Weight: 104.8 kg / 231.0 lbs Sex: M BSA: 2.13 Room#: [facility] Admit Date#: 04/29/2018 Type: Inpatient Referring: Demond Roy Reading: Dilip Chavez DO Food Production Manager: Gila Colby RDCS CC: Bakari BRASWELL,Kim Brock CC: Michele Wallace MD Transthoracic Echocardiogram Indication: Cardiomyopathy BP: 130/57 HR: 122 Rhythm: Tachycardia Findings History: Metastatic pancreatic cancer with chemotherapy, non insulin dependant DM, obesity, HLD, HTN, former smoker, s/p right powerport 04/30/18, s/p thoracentesis. Technical Comments: The study is technically limited due to patient body habitus. Completed at 1115. Left Ventricle: The left ventricular chamber size is decreased. Mild concentric left ventricular hypertrophy is observed. The left ventricle appears hyperdynamic. The estimated ejection fraction is greater than 65%. The assessment of diastolic function is non-diagnostic. Left Atrium: The left atrium is mildly dilated. Right Ventricle: The right ventricular cavity size is normal. The right ventricular global systolic function is mildly reduced. Right Atrium: The right atrium is mildly dilated. Aortic Valve: The aortic valve is trileaflet. There is no evidence of aortic valve thickening. There is no evidence of aortic regurgitation. There is no evidence of aortic stenosis. Mitral Valve: The mitral valve leaflets are mildly thickened. There is a trace of mitral regurgitation. There is no evidence of mitral stenosis. Tricuspid Valve: The tricuspid valve leaflets are normal. There is trace tricuspid regurgitation. Unable to estimate the right ventricular systolic pressure. There is no tricuspid stenosis. Pulmonic Valve: The pulmonic valve appears normal. There is a trace pulmonic regurgitation. There is no pulmonic stenosis. Pericardium: There is no significant pericardial effusion. Aorta: There is mild dilatation of the ascending aorta. There is no dilatation of the aortic arch. There is mild dilatation of the aortic root. Pulmonary Artery: The main pulmonary artery is not well visualized. Venous: The inferior vena cava appears normal in size. There is a greater than 50% respiratory change in the inferior vena cava dimension. Contrast: Definity was used to optimize study. 3 mL of diluted Definity was utilized. Intravenous contrast was used to enhance endocardial border definition. Conclusions The left ventricular chamber size is decreased. Mild concentric left ventricular hypertrophy is observed. The left ventricle appears hyperdynamic. The estimated ejection fraction is greater than 70%. The left atrium is mildly dilated. The right ventricular cavity size is normal. The right ventricular global systolic function is mildly reduced. No significant valvular abnormalities noted Unable to estimate the right ventricular systolic pressure. There is no significant pericardial effusion. Definity was used to optimize study. None prior for comparison at time of interpretation Measurements Name Value Normal Range RVIDd (AP) 2D 3.2 cm (0.9 - 2.6) RVDdMajor (2D) 4.5 cm (2.2 - 4.4) RAd ISD 4CH 5.5 cm (3.4 - 4.9) RA (A4C)W 5.5 cm (2.9 - 4.6) IVSd (2D) 1.2 cm (0.6 - 1) LVPWd (2D) 1.3 cm (0.6 - 1) LVIDd (2D) 2.5 cm (3.6 - 5.4) LVIDs (2D) 1.6 cm - LV FS (2D) 36 % (25 - 45) Aortic Annulus 2.4 cm (1.4 - 2.6) Ao root diameter (2D) 3.7 cm (2.1 - 3.5) Ascending Ao 3.9 cm (2.1 - 3.4) Aortic arch 2.6 cm (1.8 - 3.4) LA dimension (AP) 2D 3.3 cm (2.3 - 3.8) LAd ISD 4CH 6.6 cm (2.9 - 5.3) LA ISD 4CH W 5 cm (2.5 - 4.5) Name Value Normal Range LA ESV BP (A/L) index 23 ml/m2 - Name Value Normal Range MV E-wave Vmax 0.6 m/sec - MV deceleration time 271 msec - MV A-wave Vmax 0.9 m/sec - MV E:A ratio 0.7 ratio - LV septal e' Vmax 0.07 m/sec - LV lateral e' Vmax 0.06 m/sec - LV E:e' septal ratio 8.57 ratio - LV E:e' lateral ratio 10 ratio - Name Value Normal Range AV Vmax 1.4 m/sec - AV VTI 25.9 cm - AV peak gradient 9 mmHg - AV mean gradient 5 mmHg - LVOT Vmax 1.35 m/sec - LVOT VTI 20 cm - LVOT peak gradient 7 mmHg - LVOT mean gradient 2 mmHg - KINA Vmax 0.8 m/sec - Name Value Normal Range IVC diameter 1.5 cm - Name Value Normal Range PV Vmax 1.2 m/sec - PV peak gradient 6 mmHg -
[2018-05-01 13:00] LABS: Urine Appearance Cloudy; Urine Blood Negative (Negative); Urine Color Yellow; Urine Ketones Negative (Negative); Urine Protein 1+(30 mg/dL) (Negative); Urine Red Blood Cell Trace(0-2/hpf) (Absent); Urine Specific Gravity 1.018 (1.010-1.030); Urine Urobilinogen Negative (Negative); Urine White Blood Cell Trace(0-5/hpf) (Absent)
[2018-05-01] MEDS ORDERED: Polyethylene Glycol 3350* 17 GM PACKET PO SCH (13:00)
[2018-05-01] MEDS ORDERED: Polyethylene Glycol 3350* 17 GM PACKET PO ONE (13:00)
[2018-05-01] MEDS: Famotidine TAB* 20 MG PO SCH (14:36)
[2018-05-01] MEDS: HYDROcodone/ACETAMIN 5-325 MG* 1 TAB PO PRN ×3 (14:36→23:38)
[2018-05-01] MEDS ORDERED: Insulin GLARGINE(*) 1 UNITS UNIT SUBCUT SCH (17:00)
--- NOTE | 2018-05-01 17:47 | PN ---
Progress Note - Progress Note Date of Service: 05/01/18 SOAP: Subjective: [Feeling relatively well today. Inspiration somewhat limited today compared to post thoracentesis yesterday, but still much better than admission. Reports constipation and acid reflux, no BM in several days.] Objective: [ Laboratory Results - last 24 hr 04/30/18 04/30/18 05/01/18 20:50 21:34 06:35 WBC 14.7 H RBC 4.30 Hgb 10.2 L Hct 32 L MCV 75 L MCH 24 L MCHC 32 RDW 20 H Plt Count 438 MPV 8.1 Neut % (Auto) 82.7 Lymph % (Auto) 11.8 L [place] % (Auto) 4.9 Eos % (Auto) 0.2 Baso % (Auto) 0.4 Absolute Neuts (auto) 12.1 H Absolute Lymphs (auto) 1.7 Absolute Monos (auto) 0.7 Absolute Eos (auto) 0 Absolute Basos (auto) 0.1 Absolute Nucleated RBC 0 Nucleated RBC % 0 Sodium Potassium Chloride Carbon Dioxide Anion Gap BUN Creatinine Est GFR ( Amer) Est GFR (Non-Af Amer) BUN/Creatinine Ratio Glucose POC Glucose (mg/dL) > 444 H* Glucose Meter Confirm 472 H Calcium Total Bilirubin AST ALT Alkaline Phosphatase Total Protein Albumin Globulin Albumin/Globulin Ratio Urine Color Urine Appearance Urine pH Ur Specific [place] Urine Protein Urine Ketones Urine Blood Urine Nitrate Urine Bilirubin Urine Urobilinogen Ur Leukocyte Esterase Urine WBC (Auto) Urine RBC (Auto) Urine Bacteria Hyaline Casts Urine Glucose 05/01/18 05/01/18 05/01/18 06:35 07:41 11:59 WBC RBC Hgb Hct MCV MCH MCHC RDW Plt Count MPV Neut % (Auto) Lymph % (Auto) [place] % (Auto) Eos % (Auto) Baso % (Auto) Absolute Neuts (auto) Absolute Lymphs (auto) Absolute Monos (auto) Absolute Eos (auto) Absolute Basos (auto) Absolute Nucleated RBC Nucleated RBC % Sodium 134 L Potassium 4.1 Chloride 108 Carbon Dioxide 19 L Anion Gap 7 BUN 46 H Creatinine 1.85 H Est GFR ( Amer) 44.2 Est GFR (Non-Af Amer) 36.5 BUN/Creatinine Ratio 24.9 H Glucose 270 H POC Glucose (mg/dL) 283 H 295 H Glucose Meter Confirm Calcium 8.6 Total Bilirubin 0.20 AST 12 L ALT 11 Alkaline Phosphatase 64 Total Protein 5.1 L Albumin 2.4 L Globulin 2.7 Albumin/Globulin Ratio 0.9 L Urine Color Urine Appearance Urine pH Ur Specific [place] Urine Protein Urine Ketones Urine Blood Urine Nitrate Urine Bilirubin Urine Urobilinogen Ur Leukocyte Esterase Urine WBC (Auto) Urine RBC (Auto) Urine Bacteria Hyaline Casts Urine Glucose 05/01/18 05/01/18 12:35 16:34 WBC RBC Hgb Hct MCV MCH MCHC RDW Plt Count MPV Neut % (Auto) Lymph % (Auto) [place] % (Auto) Eos % (Auto) Baso % (Auto) Absolute Neuts (auto) Absolute Lymphs (auto) Absolute Monos (auto) Absolute Eos (auto) Absolute Basos (auto) Absolute Nucleated RBC Nucleated RBC % Sodium Potassium Chloride Carbon Dioxide Anion Gap BUN Creatinine Est GFR ( Amer) Est GFR (Non-Af Amer) BUN/Creatinine Ratio Glucose POC Glucose (mg/dL) 366 H Glucose Meter Confirm Calcium Total Bilirubin AST ALT Alkaline Phosphatase Total Protein Albumin Globulin Albumin/Globulin Ratio Urine Color Yellow Urine Appearance Cloudy Urine pH 5.0 Ur Specific [place] 1.018 Urine Protein 1+(30 mg/dl) A Urine Ketones Negative Urine Blood Negative Urine Nitrate Negative Urine Bilirubin Negative Urine Urobilinogen Negative Ur Leukocyte Esterase Negative Urine WBC (Auto) Trace(0-5/hpf) Urine RBC (Auto) Trace(0-2/hpf) Urine Bacteria Absent Hyaline Casts Present A Urine Glucose 1+(50 mg/dl) A Vital Signs Temp Pulse Resp BP Pulse Ox 97.2 F 106 16 134/67 96 05/01/18 15:24 05/01/18 15:24 05/01/18 16:30 05/01/18 15:24 05/01/18 16:00 Exam: Gen: Relatively well appearing 67 yo male in NAD HEENT: MMM CV: RRR, no m/r/g Resp: few crackles on R side, L CTA Abd: soft, nonTTP Ext: no edema] Assessment: [67 yo male with recent diagnosis of metastatic pancreatic CA with malignant and recurrent pleural effusion and poorly controlled DM. Admitted for increased SOB and dizziness with worsening renal function. Now s/p PleurX catheter placement and power port. CT C/A/P performed yesterday shows 6 cm mass near tail of pancreas, no other metastatic focus but scan completed without contrast due to renal function.] Plan: [1. Malignant pleural effusion - improved s/p PleurX catheter placement 2. KALPESH - acute on chronic - BUN continues to rise despite IVF and adequate po intake, Cr stable near 1.8 ( baseline ~1.1-1.2) - discussed the case with Dr Aiken by phone who suggested ATN is most likely cause of worsening renal function due to hypotension and ARB use - sent urine eosinophils to eval for interstitial nephritis, but less likely - no obvious offending medication - sent urine Na and Cr to calculate FeNa, but this will be less helpful give recent and continuous IVF administration - Dr Aiken suggests buffering with Bicitra due to mild associated acidosis 3. Poorly controlled DM - HgbA1c >10 - improving glycemic control with basal/bolus regimen - cont to titrate insulin 4. Metastatic pancreatic CA - 6cm primary tumor at the tail of the pancreas with malignant pleural effusion - plan to start chemotherapy early next week Dispo: if renal fxn remains stable will plan to send home tomorrow]
[2018-05-01] MEDS: Sodium Citrate/Citric Acid* 15 ML UDC PO SCH (20:35)
[2018-05-01] MEDS: Docusate CAP* 100 MG PO SCH (20:36)
[2018-05-01] MEDS ORDERED: Senna TAB PO SCH (21:00)
[2018-05-02] MEDS: NS 0.9% 1000 ML* 1,000 ML IV SCH (01:28)
[2018-05-02] MEDS: Levothyroxine TAB* 75 MCG TAB PO SCH (05:51)
[2018-05-02 07:29] LABS: ABS Basophils 0.1 10^3/ul (0-0.2); ABS Eosinophils 0.1 10^3/ul (0-0.6); ABS Lymphocytes 1.7 10^3/ul (1.0-4.8); ABS Monocytes 0.5 10^3/ul (0-0.8); ABS Neutrophils 9.2 10^3/ul (1.5-7.7); ABS Nucleated RBC 0 10^3/ul; Eosinophil % 0.9 % (0-6); Hematocrit 31 % (42-52); Lymphocyte % 14.4 % (25-47); Mean Corpuscular HGB Conc 32 g/dl (31-36); Mean Corpuscular Hemoglobin 24 pg (27-31); Mean Corpuscular Volume 74 fL (80-94); Mean Platelet Volume 7.6 um3 (7.4-10.4); Nucleated Red Blood Cells % 0; Platelet Count 411 10^3/ul (150-450); Red Blood Count 4.18 10^6/ul (4.00-5.40); Red Cell Distribution Width 20 % (10.5-15); White Blood Count 11.5 10^3/ul (3.5-10.8)
[2018-05-02 08:18] VITALS: BP 131/64
[2018-05-02] MEDS: BuPROPion XL* 300 MG TAB.XL PO SCH (09:10)
[2018-05-02] MEDS: lamoTRIgine TAB(*) 100 MG PO SCH (09:10)
[2018-05-02] MEDS: Famotidine TAB* 20 MG PO SCH (09:10)
[2018-05-02] MEDS: Docusate CAP* 100 MG PO SCH (09:10)
[2018-05-02] MEDS: Ticagrelor* 90 MG TAB PO SCH (09:10)
[2018-05-02] MEDS: Aspirin EC TAB* 81 MG TAB.EC PO SCH (09:10)
[2018-05-02] MEDS: Insulin LISPRO* 1 UNITS UNIT SUBCUT SCH (09:11)
[2018-05-02] MEDS: Sodium Citrate/Citric Acid* 15 ML UDC PO SCH (09:12)
--- NOTE | 2018-05-02 14:00 | DS ---
ADDENDUM NOW INCLUDED ON THIS REPORT CC: Dr. Wallace * DISCHARGE SUMMARY: DATE OF ADMISSION: 04/29 DATE OF DISCHARGE: 05/02/18 PRIMARY CARE PROVIDER: Dr. Wallace PRIMARY ONCOLOGIST AND ATTENDING PHYSICIAN: Dr. Kim Villegas * (DICTATED BY JODEE MATIAS) CONSULTING SURGEON: Dr. Gaston DISCHARGING PROVIDER: JODEE Matias PRIMARY DISCHARGE DIAGNOSES: 1. Recurrent right-sided malignant pleural effusion, symptomatic. 2. Hyperglycemia secondary to poorly controlled diabetes. 3. Acute-on chronic kidney disease - likely secondary to ATN related to prolonged hypotension and continued ARB use. 4. Metastatic pancreatic cancer. SECONDARY DISCHARGE DIAGNOSES: 1. Bipolar disorder. 2. Hypotension. 3. Coronary artery disease. 4. Hypothyroidism. DISCHARGE MEDICATIONS: 1. Aspirin 81 mg p.o. daily. 2. Bupropion 300 mg p.o. daily. 3. Lamictal 100 mg p.o. twice daily. 4. Levothyroxine 75 mcg p.o. daily. 5. Multivitamin 1 tablet p.o. daily. 6. Actos 45 mg p.o. daily. 7. Crestor 40 mg p.o. daily. 8. Brilinta 90 mg p.o. twice daily. 9. Hydrocodone/acetaminophen 5/325 one tablet p.o. q.4 hours as needed for pain. 10. Levemir 40 units subcu daily. Medication changes: 1. Hold all antihypertensives including amlodipine, losartan, Lasix and metoprolol. 2. Stop metformin due to worsening renal function. 3. Start Levemir. HOSPITAL IMAGIN. Chest x-ray shows moderate-sized right pleural effusion, which has increased in size compared to the last imaging. 2. CT chest, abdomen and pelvis demonstrates right paratracheal and subcarinal lymph node, which are mildly enlarged with a small pericardial effusion, small bilateral pleural effusion, right greater than left with bibasilar atelectasis and right chest tube in place. No hepatic lesions are noted. There is an ill- defined mass in the region of the tail of the pancreas measuring 6.3 x 5.1 cm. There is a perinephric infiltration of fat consistent with the inflammatory changes around both kidneys without associated hydronephrosis and a small amount of free fluid noted within the pelvis. HOSPITAL COURSE: This is a 67-year-old gentleman with poorly controlled diabetes, hypertension, coronary artery disease, hypothyroidism, and bipolar disorder with a history of marginal cell lymphoma and recent diagnosis of metastatic pancreatic cancer. The patient had developed shortness of breath several weeks ago and seen in the emergency department with a new pleural effusion and underwent diagnostic thoracentesis, which cytology revealed malignant cells as pancreatic or biliary origin. The patient was subsequently seen in the oncology office with complaints of dizziness and increased shortness of breath with evidence of recurrence of his malignant effusion and was subsequently hospitalized for symptom management. Also, of note the patient's baseline creatinine is approximately 1.2, at the time of admission had climbed to 1.8 and he was subsequently hydrated with normal saline with little improvement in his renal function. CT scan done for staging purposes without contrast demonstrated bilateral perinephric fat stranding suggestive of an infiltrative process. His urinalysis was not suggestive of infection instead just showed 1+ protein and no casts. FENa was calculated, but after several liters of normal saline, this was low at 0.2% suggestive of a prerenal process, but less hopeful given his administration of normal saline. The patient likely had prolonged course of hypotension due to hypovolemic state related to his hyperglycemia and some associated nausea related to his malignancy and continued use of his antihypertensives including losartan. This case was discussed by phone with Dr. Aiken, who suggested most likely cause of his acute-on chronic renal insufficiency is a tubular necrosis secondary to poor perfusion. The patient was severely hyperglycemic with glucose greater than 450 at the time of admission. He was on metformin and Actos at home. He was started on a basal bolus insulin regimen during this hospitalization and titrated up with a fasting blood glucose in the mid 200s at the time of discharge. The patient will be discharged on long-acting insulin as noted above. In regards to the patient's pancreatic cancer, he underwent the staging CT without contrast and during this hospitalization contrast was not possible due to his renal function. This did demonstrate the known pleural effusion as well as perihilar and subcarinal lymph nodes and a large 6.3 cm mass near the pancreatic tail without any hepatic lesions. These findings are consistent with the second diagnosis of pancreatic cancer. DISPOSITION: Followup Plan: The patient is being discharged to home. His medications as outlined above. Goals to start palliative chemotherapy as soon as possible. He has been scheduled to start on 05/04/18, and will receive gemcitabine and Abraxane. The patient will likely require further titration of his insulin. He received instructions to hold all of his antihypertensives at this time and we will reintroduce as necessary at his followup appointment moving forward. JODEE MATIAS ADDENDUM: ADDITIONAL PRIMARY DISCHARGE DIAGNOSES: Placement of right PleurX catheter and right power port. The patient received teaching for his PleurX catheter prior to discharge. His will maintain care of his PleurX catheter at home and additional kits will be ordered by Dr. Villegas's office next week. JODEE MATIAS [id number]/CPS #: [id number]/CPS #: [id number] [place]
--- NOTE | 2018-05-02 15:21 | DS ---
DISCHARGE SUMMARY: ADDENDUM: ADDITIONAL PRIMARY DISCHARGE DIAGNOSES: Placement of right PleurX catheter and right power port. The patient received teaching for his PleurX catheter prior to discharge. His will maintain care of his PleurX catheter at home and additional kits will be ordered by Dr. Villegas's office next week. JODEE MATIAS [id number]/[facility] #: [id number] [place]
== END 2018-05-02 11:40 | disposition home or self-care (01) | DRG 435 ==
LOC: MED 12:25 → OBSVTOIN 05-01 12:25
PROVIDERS: ADMIT Internal Medicine Hematology & Oncology; ATTEND Internal Medicine Hematology & Oncology
PROC: 0W9930Z Drainage of Right Pleural Cavity with Drainage Device, Percutaneous Approach (ICD-10-PCS; principal; 2018-05-02)
PROC: 0JH60WZ Insertion of Totally Implantable Vascular Access Device into Chest Subcutaneous Tissue and Fascia, Open Approach (ICD-10-PCS; 2018-05-02)
PROC: 05H533Z Insertion of Infusion Device into Right Subclavian Vein, Percutaneous Approach (ICD-10-PCS; 2018-05-02)
DX: C25.9 Malignant neoplasm of pancreas, unspecified (principal); N17.0 Acute kidney failure with tubular necrosis; J91.0 Malignant pleural effusion; E87.1 Hypo-osmolality and hyponatremia; J98.11 Atelectasis; N13.30 Unspecified hydronephrosis; R18.8 Other ascites; C78.89 Secondary malignant neoplasm of other digestive organs; Z68.42 Body mass index [BMI] 45.0-49.9, adult; I95.9 Hypotension, unspecified; E11.65 Type 2 diabetes mellitus with hyperglycemia; E66.9 Obesity, unspecified; J45.909 Unspecified asthma, uncomplicated; E78.5 Hyperlipidemia, unspecified; F31.9 Bipolar disorder, unspecified; N18.9 Chronic kidney disease, unspecified; I25.10 Atherosclerotic heart disease of native coronary artery without angina pectoris; E03.9 Hypothyroidism, unspecified; I12.9 Hypertensive chronic kidney disease with stage 1 through stage 4 chronic kidney disease, or unspecified chronic kidney disease; E86.1 Hypovolemia; E86.0 Dehydration; Z92.21 Personal history of antineoplastic chemotherapy; Z85.79 Personal history of other malignant neoplasms of lymphoid, hematopoietic and related tissues; Z85.820 Personal history of malignant melanoma of skin; Z87.891 Personal history of nicotine dependence; Z79.02 Long term (current) use of antithrombotics/antiplatelets; Z79.82 Long term (current) use of aspirin; Z79.4 Long term (current) use of insulin; K21.9 Gastro-esophageal reflux disease without esophagitis; K59.00 Constipation, unspecified
CPT/HCPCS: 1036F; 1126F; 36415; 71045; 71046; 71250; 74176; 76000; 80053; 81003; 81015; 82570; 82947; 83036; 83735; 84100; 84300; 85025; 85610; 85730; 86301; 87086; 89190; 93306; 96360; 96361; 99215; 99219; 99233; 99239; A9270-GY; C8929; G0463; G8427; J1642; J2250; J2270; J3010; J7512

== ENCOUNTER 2018-05-03 08:30 | Emergency (ER) | payer MEDICARE ==
--- NOTE | 2018-05-03 09:09 | ED ---
Complex/Multi-Sys Presentation - HPI Summary HPI Summary: This is scribe Raoul Benito documenting for attending Toni Mir. A 67 y/o male accompanied by his family presents to ED c/o plueritic drain leakage reaching 7/10 in severity. In the ED room, the patient has a pulse of 107 BPM, O2 saturation of 98% and blood pressure of 141/81. As per triage, "Pt here from home. dc yesterday with plueritic drain that is leaking. Pt sent from MD office. Supposed to start chemo tomorrow. Pt has not started his insulin or taking AM meds yet. Pt has significant weight gain overnight". According to the patient, he has been experiencing a leaking pleuritic drain/fluid collection since last night (started leaking then). The patient noted that he had the drain in place since Friday with bandaging, however, it has been filled with fluid and has fluid onto skin. Patient states he has swollen up feet and has buttock tenderness/soreness, however, denies any SOB. He noted that he drained the fluid yesterday, but thinks the malfunction of the device happened last night. Additionally, he is supposed to be done with the drain tomorrow and undergo chemotherapy. He has become 20 lbs heavier since yesterday, but used a different scale. Pt is able to stand. Pt ate last night but not a lot of carbs, no food today. Current medications is Brilinta and insulin, but did not take either of those. I, Dr. Mir, personally performed the services described in this documentation as scribed in my presence and it is both accurate and complete. - History Of Current Complaint Chief Complaint: EDGeneral Time Seen by Provider: 05/03/18 08:32 Hx Obtained From: Patient Onset/Duration: Sudden Onset, Lasting Hours, Still Present Timing: Constant Severity Currently: Moderate - 7/10 Severity Initially: Moderate - 7/10 Location: Negative Character: Unable To Describe Aggravating Factor(s): NOTHING Alleviating Factor(s): NOTHING Associated Signs And Symptoms: Positive: Edema - Feet, Other - Bottom soreness. Negative: SOB - Allergies/Home Medications Allergies/Adverse Reactions: Allergies Allergy/AdvReac Type Severity Reaction Status Date / Time fentanyl Allergy Hives Verified 05/03/18 08:39 gabapentin Allergy Swelling Verified 05/03/18 08:39 Iodinated Contrast- Oral and Allergy Hives Verified 05/03/18 08:39 IV Dye nortriptyline Allergy Swelling Verified 05/03/18 08:39 Of Face,Lips,& Throat Penicillins Allergy Hives Verified 05/03/18 08:39 PMH/Surg Hx/FS Hx/Imm Hx Endocrine/Hematology History: Reports: Hx Diabetes Denies: Hx Systemic Lupus Erythematosus Cardiovascular History: Reports: Hx Hypertension Denies: Hx Congestive Heart Failure, Hx Pacemaker/ICD Respiratory History: Reports: Hx Asthma - A CHILD, Other Respiratory Problems /Disorders - HX OF LYMPHOMA IN REMISSION GI History: Reports: Other GI Disorders - PT HAD A PERIOD ON NAUSEA/VOMMITING DUE TO A MEDICATION History: Denies: Hx Dialysis, Hx Renal Disease Musculoskeletal History: Denies: Hx Rheumatoid Arthritis Sensory History: Denies: Hx Contacts or Glasses, Hx Hearing Aid Opthamlomology History: Denies: Hx Contacts or Glasses Psychiatric History: Reports: Hx Panic Disorder - Cancer History Cancer Type, Location and Year: MELANOMA AND LYMPHOMA. Hx Chemotherapy: Yes - Surgical History Surgery Procedure, Year, and Place: PROCEDURES REMOVAL OF SKIN CANCER dx WITH MELANOMA 2006. RECENTLY HAD NUMEROUS SPOTS REMOVED AND IS WAITING FOR THE RESULTS. NO RECENT SX. MULTIPLE SX FOR LYMPHOMA. shoulder surgery Infectious Disease History: No Infectious Disease History: Denies: Traveled Outside the [place] in Last 30 Days - Family History Known Family History: Positive: Cardiac Disease, Hypertension, Diabetes - Social History Alcohol Use: None Substance Use Type: Reports: None Smoking Status (MU): Former Smoker Type: Cigarettes, eCigarettes Amount Used/How Often: 2-3 PPD Length of Time of Smoking/Using Tobacco: 19 Years Have You Smoked in the Last Year: No Review of Systems Negative: Fever, Chills Negative: Erythema Negative: Sore Throat Negative: Chest Pain Negative: Shortness Of Breath, Cough Negative: Abdominal Pain, Vomiting, Nausea Negative: dysuria, hematuria Positive: Edema - FEET, Other - POSITIVE: Bottom soreness. Negative: Myalgia Negative: Rash Neurological: Other - NEGATIVE: Dizziness All Other Systems Reviewed And Are Negative: Yes Physical Exam - Summary Physical Exam Summary: Constitutional: Well-developed, Well-nourished, Alert. (-) Distressed. Patient has a pleurx catheter with wet dressing on the right side. Skin: Stage 1 skin breakdown at coccus. HENT: Normocephalic; Atraumatic Eyes: Conjunctiva normal Neck: Musculoskeletal ROM normal neck. (-) JVD, (-) Stridor, (-) Tracheal deviation Cardio: Rhythm regular, rate normal, Heart sounds normal; Intact distal pulses; The pedal pulses are 2+ and symmetric. Radial pulses are 2+ and symmetric. (-) Murmur Pulmonary/Chest wall: Breathe sounds diminished on right side with crackles. Abd: Soft, (-) epigastric tenderness, (-) Distension, (-) Guarding, (-) Rebound , subcutaneous edema on right lower abdomen. Musculoskeletal: Pressure bed sore. Lymph: (-) Cervical adenopathy Neuro: Alert, Oriented x3 Psych: Mood and affect Normal Triage Information Reviewed: Yes Vital Signs On Initial Exam: Initial Vitals Temp Pulse Resp BP Pulse Ox 97 F 107 18 141/81 97 05/03/18 08:41 05/03/18 08:41 05/03/18 08:41 05/03/18 08:41 05/03/18 08:41 Vital Signs Reviewed: Yes Diagnostics - Vital Signs Vital Signs Temp Pulse Resp BP Pulse Ox 05/03/18 08:41 97 F 107 18 141/81 97 - Laboratory Lab Statement: Any lab studies that have been ordered have been reviewed, and results considered in the medical decision making process. - Radiology CXR Radiology Interpretation Completed By: Radiologist - 1. SMALL RIGHT PLEURAL EFFUSION. 2. LINES AND TUBES ABOVE. ED physician reviewed this radiology report. Re-Evaluation - Re-Evaluation First Eval Re-Evaluation Time: 09:40 Comment: Preliminary CXR interpretation reveals pleurex catheter catheter appears to be dislodged. Patient has no respiratory distress. Complex Multi-Symp Course/Dx Course Of Treatment: A 67 y/o male accompanied by his family presents to ED c/o plueritic drain leakage reaching 7/10 in severity. In the ED room, the patient has a pulse of 107 BPM, O2 saturation of 98% and blood pressure of 141/81. A CXR revealed 1. Small right pleural effusion. 2. Lines and tubes as above. In the ED course, the patient recieved Lantus. Patient care was discussed with Dr. Gonzales who will come and consult/see patient. After evaluation, Dr. Gonzales recommended catheter needed to be drained more often. Patient will be discharged with a diagnosis of maligant pleural effusion. Patient is to follow up with chemotherapy tomorrow. Pt is agreeable with this plan. - Diagnoses Provider Diagnoses: Malignant pleural effusion - Physician Notifications Discussed Care Of Patient With: Bita Gonzales Time Discussed With Above Provider: 09:41 Instructed by Provider To: Other - Dr. Gonzales will come in and consult/see patient. After evaluation, Dr. Gonzales recommended catheter needed to be drained more often. Discharge - Sign-Out/Discharge Documenting (check all that apply): Patient Departure - DISCHARGE - Discharge Plan Condition: Stable Disposition: HOME Patient Education Materials: Pleural Effusion (ED) Additional Instructions: FOLLOW UP WITH CHEMOTHERAPY TOMORROW. RETURN TO ED FOR ANY NEW OR WORSENING SYMPTOMS.
--- NOTE | 2018-05-03 09:38 | RAD ---
HISTORY: CONFIRM CHEST TUBE PLACEMENT COMPARISONS: None VIEWS: 4: Frontal dual-energy and lateral views of the chest. FINDINGS: CARDIOMEDIASTINAL SILHOUETTE: The cardiomediastinal silhouette is normal. NANCY: The nancy are normal. PLEURA: There is a small right pleural effusion. LUNG PARENCHYMA: The lungs are clear. ABDOMEN: The upper abdomen is clear. There is no subphrenic gas. BONES AND SOFT TISSUES: No bone or soft tissue abnormalities are noted. OTHER: A right-sided chest port is noted from this subclavian approach with the tip overlying the cavoatrial junction. There is a right-sided chest port along the right costophrenic angle. IMPRESSION: 1. SMALL RIGHT PLEURAL EFFUSION. 2. LINES AND TUBES ABOVE.
[2018-05-03] MEDS ORDERED: Insulin GLARGINE(*) 1 UNITS UNIT SUBCUT ONE (11:06)
--- NOTE | 2018-05-03 11:13 | CONSULT ---
Consultation - Reason for Consultation Reason for Consultation: metastatic pancreatic CA Ordering Provider: Toni Mir Chief Complaint: fluid leaking from chest tube History of Present Illness: This is a 67 yo male well known to the oncology service who was discharged from the hospital yesterday after PleurX catheter placement and admission for KALPESH and hyperglycemia. Prior to discharge his PleurX was drained, it appeared to be functioning well and ~600 ml of yellow fluid was easily drained. This am, he woke up and there was a large amount of fluid that covered his chest and abdomen. He called the oncology service and was instructed to proceed to the ER. CXR in the ER looks like PleurX has become dislodged. He picked up his Levemir insulin as instructed. FBG was ~300 mg/dl this am, he did not take any insulin yet today. He is quite edematous from his hospital stay. Reports a 20 pound weight gain. No increased dyspnea or cough. Allergies/Medications Medication: Home Medications Medication Instructions Recorded Confirmed Type Aspirin EC TAB* [Ecotrin EC Low 81 mg PO DAILY 04/20/18 05/03/18 History Dose 81 MG*] BuPROPion XL* [Bupropion XL*] 300 mg PO DAILY 04/20/18 05/03/18 History Levothyroxine TAB* [Synthroid 75 75 mcg PO DAILY 04/20/18 05/03/18 History MCG TAB*] Multivitamins/Minerals TAB* 1 tab PO DAILY 04/20/18 05/03/18 History [Theragran/minerals TAB*] Pioglitazone HCl [Actos] 45 mg PO DAILY 04/20/18 05/03/18 History Rosuvastatin (NF) [Crestor (NF)] 40 mg PO DAILY 04/20/18 05/03/18 History Ticagrelor* [Brilinta 90 MG*] 90 mg PO BID 04/20/18 05/03/18 History lamoTRIgine TAB(*) [Lamictal 100 mg PO BID 04/20/18 05/03/18 History TAB(*)] HYDROcodone/ACETAMIN 5-325 MG* 1 tab PO Q4H PRN #60 tab MDD 6 tabs 05/02/18 Rx [[place] 5-325 TAB*] Insulin Detemir [Levemir Flextouch] 40 unit SQ DAILY #30 dose 05/02/18 05/03/18 Rx Pen Needle, Diabetic [Pen Needle] 1 each MC DAILY #30 dis.needle 05/02/18 Rx Allergies/Adverse Reactions: Allergies Allergy/AdvReac Type Severity Reaction Status Date / Time fentanyl Allergy Hives Verified 05/03/18 08:39 gabapentin Allergy Swelling Verified 05/03/18 08:39 Iodinated Contrast- Oral and Allergy Hives Verified 05/03/18 08:39 IV Dye nortriptyline Allergy Swelling Verified 05/03/18 08:39 Of Face,Lips,& Throat Penicillins Allergy Hives Verified 05/03/18 08:39 History - Past Medical History Hx Arthritis: No Hx Cancer: Yes - metastatic pancreatic CA Hx Diabetes: Yes - IDDM Hx Hypercholesterolemia: Yes Hx Hypertension: Yes Review of Systems - Review of Systems Constitutional Symptoms: Positive: Weight Gain Dermatology: Positive: Normal HEENT: Positive: Normal Eyes: Positive: Normal Thyroid: Positive: Normal Pulmonary: Positive: Cough, Shortness of Breath Cardiology: Positive: Normal Gastroenterology: Positive: Normal Genital - Urinary: Positive: Normal Musculoskeletal: Negative: Joint Pain Endocrinology: Positive: Diabetes Mellitus Neurology: Positive: Normal Psychiatry: Positive: Normal Physical Exam - Physical Exam Physical Examination: Gen: Well appearing in NAD. Accompanied by his and grandson HEENT: MMM CV: RRR, no m/r/g Resp: CTA, no w/c/r Abd: soft, mildly distended, non TTP Ext: 2+ pitting edema Skin: no rashes or lesions Results - Radiology Radiology Results: CXR - small R pleural effusion, PleurX appears dislodged Assessment and Plan Impression: 67 yo male with new dx of metastatic pancreatic CA with malignant pleural effusion s/p pleurX catheter placement with a large amount of fluid that leaked this morning. CXR suggests the catheter has become dislodge. Waiting on surgical evaluation. Noted edema on exam. Plan: 1. Pleural effusion with failed PleurX catheter - awaiting surgical evaluation for replacement 2. DM - FBG ~ 300 mg/dl this am, will order is usual dose of insulin glargine 40U daily for now 3. Anasarca - due to a number of different factors including large amount of IVF during hospitalization - resume usual Lasix dose when he returns home, could give 1 dose of 20mg IV Lasix in the ER depending on surgical plan 3. Constipation - recommended use of suppository 4. Metastatic pancreatic CA - plans to start chemotherapy with C1 gemcitabine/ abraxane scheduled for tomorrow Dispo: pending surgical evaluation, would like to avoid readmission if at all possible. Follow up in oncology office tomorrow for planned treatment if discharged from ER today.
[2018-05-03] MEDS ORDERED: Furosemide IV* 10 MG/ML 2 ML VIAL (20 MG) IV ONE (12:27)
[2018-05-03] MEDS ORDERED: Furosemide TAB* 20 MG PO ONE (12:35)
--- NOTE | 2018-05-03 12:46 | CONSULT ---
Consult Consult: Surgery Asked by Dr. Mir to evaluate a pt with leaking pleural fluid. Mr. Baugh is a 67 y.o. male recently s/p dx of pancreatic cancer with a pleural effusion managed by a pleur-X catheter placed on 04/30. He came in saying that he was having leaking fluid around the tube and also experiencing swelling in the low abd. Exam shows a saturated dressing around the pleur-X cath with the catheter in good position in the skin, without exposure of the cuff. His low abd. is swollen on the right side from the flank to the RLQ. The CXR shows the tube in good position. A/P: Probably effusion has developed in the interval since last drainage that has overwhelmed the catheter and is leaking around it, some into the subcutaneous tissue and some around the tube at its exit site. I was able ( with the help of Demond Roy) to locate a pleur-X bulb and drain ~450 cc of serous fluid. This will hopefully reduce the pressure on the tube and reduce further development of swelling and leaking. He will f/u as scheduled with ROBIN tomorrow. Mauri
[2018-05-03 13:12] VITALS: BP 132/80
== END 2018-05-03 13:08 | disposition home or self-care (01) ==
LOC: ED 08:30
DX: C25.9 Malignant neoplasm of pancreas, unspecified (principal); J91.0 Malignant pleural effusion; T85.9XXA Unspecified complication of internal prosthetic device, implant and graft, initial encounter; R60.0 Localized edema; Z88.5 Allergy status to narcotic agent; Z88.0 Allergy status to penicillin; Z88.8 Allergy status to other drugs, medicaments and biological substances; Z91.041 Radiographic dye allergy status; Z87.891 Personal history of nicotine dependence
CPT/HCPCS: 71046; 96372; 99283; A9270-GY

== ENCOUNTER 2018-05-11 12:13 | Inpatient (IN) | payer MEDICARE ==
[2018-05-11] MEDS ORDERED: Dextrose 50% Syringe 50 ML* 25 GM/50 ML SYRINGE IV PUSH PRN (12:26)
[2018-05-11] MEDS ORDERED: Ondansetron TAB* 4 MG PO PRN (12:41)
[2018-05-11] MEDS ORDERED: Prochlorperazine TAB* 10 MG PO PRN (12:41)
--- OUTSIDE RECORDS SUMMARY | 2018-05-11 13:40 | XMS REPORT ---
:1950 External Reference #:[id number] Author Organization [facility] Address [address] [place] [address] [place] [address] Phone [phone] Care Team Providers Name Role Phone Michele Wallace MD Primary Care Physician Unavailable Payers Type Date Identification Numbers Payment Provider Subscriber Medicare Primary Policy Number: [id number] Medicare Silvestre Ku PayID: [id number] [address] [place] [address] [facility] Policy Number: [id number] [facility] Silvestre Ku PayID: [id number] [address] [place] [address] Problems Date Description Provider Status Onset: 03/25/2018 [...] Form Strength Qnty SIG Indications Ordering Provider Furosemide Active Tablets 40mg TK 1 T Unknown 000 PO qd Transderm-Scop Active Patches 1.5mg Place 1 Unknown 000 72HR Patch Onto The Skin Every 3 Days. Atorvastatin Active Tablets 10mg TK 1 T Unknown Calcium 000 PO qd Losartan Active Tablets 100mg TK 1 T Unknown Potassium 000 PO qd Amlodipine Active 10mg 1 tab Unknown Besylate 000 daily Brilinta Active 90mg 1 tab Unknown 000 twice a day Wellbutrin SR Active 300mg daily Unknown 000 Levothyroxine Active Tablets 75mcg 1 by Unknown Sodium 000 mouth every day Multi Vitamin Active Tablets 1 by Unknown 000 mouth every day Actos Active Tablets 45mg 1 by Unknown 000 mouth every day Rosuvastatin Active Tablets 40mg take one Unknown Calcium 000 tablet daily Lamotrigine Active Tablets 100mg 1 by Unknown 000 mouth twice a day Lantus Solostar Active Solution 100Unit/ML Unknown 000 Pen-Inject Metformin HCL Hx Tablets 500mg TK 2 TS Unknown 000 PO bid. Divalproex Hx Tablets ER 250mg TK 3 TS Unknown Sodium ER 000 24HR PO bid Glipizide Hx Tablets 5mg TK 1 T Unknown 000 - PO qd 018 Lamotrigine Hx Tablets 100mg TK 1 T Unknown 000 - PO bid 018 Potassium Hx Tablets ER 20Meq TK 2 TS Unknown Chloride Angela ER 000 PO qd Taztia XT Hx Caps ER 120mg TK One C Unknown 000 - 24HR PO qd 018 Bydureon Hx Unknown 000 Hydralazine HCL Hx Unknown 000 Lamictal Hx Unknown 000 Synthroid Hx Unknown 000 Metoprolol Hx Tablets 25mg 1 by Unknown Tartrate 000 mouth twice a day Vital Signs Date Vital Result Comment 05/06/2018 Heart Rate 88 /min BP Systolic 136 mmHg BP Diastolic 72 mmHg Respiratory Rate 18 /min Body Temperature 99.1 F 04/21/2018 Height 66 inches 5'6" Weight 224.00 [...] mmHg BP Diastolic Sitting 90 mmHg Results Test Date Test Result H/L Range Note Body Fluid C&S 04/21/2018 Body Fluid Cult SEE RESULT BELOW 1 Gram Stain Body Fluid Cell 04/21/2018 Body Fluid Source Pleural Fluid Count Body Fluid Appearance Cloudy Body Fluid Color Yellow Body Fluid Volume 8 mL Body Fluid WBC 963 /mcL 2 Body Fluid RBC 1194 /mcL Body Fluid Neutrophils 7 % Body Fluid Lymph 33 % Body Fluid [place] 60 % Body Fluid Total Cells Counted 100 Body Fluid Comment (SEE NOTE) 3 Fluid Reviewed By MD (SEE NOTE) 4 Lactate Dehydrogenase,BF 04/21/2018 Lactate Dehydrogenase, BF 192 U/L 5 Fluid Source PLEURAL 6 Laboratory test finding 04/21/2018 Miscellaneous Test See Comment 7 Body Fluid Total Protein 04/21/2018 Total Protein, BF 3.9 g/dL 8 Fluid Source PLEURAL 9 Leukemia/Lymphoma Flow 04/21/2018 Path Interpretation 2-8 Marker (SEE NOTE) 10 Path Interpret 9-15 Marker TNP Path Interpret > 16 Marker TNP Laboratory test finding 04/21/2018 Cytology Non-Online Services Manager SEE RESULT BELOW 11 1 SEE RESULT BELOW Name: SILVESTRE KU : [address]: Rojas Gaston MD Acct: [id number] Unit: [id number] AGE: 67 Location: OR Re04/21/18 SEX: M Status: REG SDC SPEC: [id number] MANUEL: 04/21/18-1359 [facility] DR: Rojas Gaston MD REQ: [id number] RECD: 04/21/18 STATUS: COMP HERBERT DR: Michele Wallace MD _ SOURCE: PLEURAL FL SPDESC: ORDERED: JAYLEN Ma/GHISLAINE Procedure Result Reported Site Body Fluid Gram Stain Final 04/21/18- 1609 ML 3+ Nucleated Cells 1+ Neutrophils No Organisms Seen Preparation By Cytospin Smear Body Fluid Culture Final 04/25/18- 0920 ML No Growth Day 4 * ML - Main Lab . END OF REPORT DEPARTMENT OF PATHOLOGY, [address] [place] [address] Caleb Cleveland M.D. Director [facility] # [id number] 2 -- REFERENCE VALUE -- Synovial: <150/mcL Peritoneal: <500/mcL Pleural: <500/mcL Pericardial: <500/mcL 3 Differential performed on concentrated smear. 4 Atypical cells. Recommend correlation with cytology studies. Reviewed by Sherry Watkins MD 5 REFERENCE VALUE Not Applicable 6 Test Performed by: [address] [address] 7 Test Result Flag Unit RefValue Specific [place], BF Specific [place], Body Fluid 1.025 REFERENCE VALUE Not Applicable Fluid Type PLEURAL Test Performed by: [facility] - [address] [address] 8 REFERENCE VALUE Not Applicable ADDITIONAL INFORMATION This test has been modified from the stock car driver's instructions. Its performance characteristics were determined by [facility] in a manner consistent with CLIA requirements. This test has not been cleared or approved by the U.S. Food and Drug Administration. 9 Test Performed by: [facility] [address] [place] [address] 10 FINAL DIAGNOSIS: Specimen Source: Pleural fluid Flow cytometry immunophenotypic analysis: No evidence of an immunophenotypically abnormal cell population. Interpretative data: Blasts: 0% of gated events Lymphocytes: 53% of gated events B-cells: 4% of lymphs; kappa:lambda within normal limits T-cells/NK cells: No aberrant population detected. Markers tested: CD3, CD10, CD16, CD19, CD34, CD45, kappa surface light chains, lambda surface light chains, 7-AAD. Quality Assessment: Acceptable Viability: Acceptable Viable lymphocytes (7-AAD): 99% Specimen received within validated guidelines. A Roque-Giemsa stained slide prepared from the flow cytometry specimen was examined for quality purposes. Electronically signed by: Sherry Watkins MD 04/22/18 1511 Technical component performed by: [address] [address] Recreation Superintendent: Kwadwo Christian II, MD, PhD. 11 SEE RESULT BELOW Name: SILVESTRE KU : [address]: Rojas Gaston MD Acct: [id number] Unit: [id number] AGE: 67 Location: OR Re04/21/18 SEX: M Status: REG [facility] SPEC: [id number] MANUEL: 04/21/18-13[address] [facility] DR: Rojas Gaston MD REQ: [id number] RECD: 04/21/18-1448 STATUS: SOUT _ ORDERED: LEVEL 4, NG THIN LAYER, IMMUNO-FIRST, IMMUNO-ADDL/10, IMMUNO-QUANT An ALK immunohistochemical stain, with appropriately reacting controls, was performed and is negative. Addendum Signed (signature on file) Sherry Watkins MD 1506 FINAL DIAGNOSIS Pleural effusion, thoracentesis: -- Metastatic adenocarcinoma, compatible with pancreaticobiliary primary origin; see comment. COMMENT: A cell block was prepared in the evaluation of this specimen. Smears and cell block reveal similar findings. Slides show clustered malignant epithelioid elements with moderate nuclear pleomorphism. Immunohistochemical stains, with appropriately reacting controls, were performed with the following results: CK7 strongly and diffusely positive CK20 negative CDX 2 negative TTF-1 negative Napsin-A negative CA19-9 diffusely positive CAIX focally positive PMS-2 intact MSH-2 intact MLH-1 intact CONTINUED ON NEXT PAGE DEPARTMENT OF PATHOLOGY, [address] [place] [address] Caleb Cleveland M.D. Director [facility] # [id number] RUN DATE: 04/29/18 [facility] LAB LIVE PAGE 2 Patient: SILVESTRE KU [id number] (Continued) SPECIMEN COMMENTS (Continued) MSH-6 intact PDL-1 negative (0%) quantitated manually The immunoprofile is most compatible with metastasis from an adenocarcinoma of pancreaticobiliary primary origin. Correlation with imaging studies is recommended. 1. PLEURAL - PLEURAL EFFUSION CLINICAL HISTORY Pleural effusion. GROSS DESCRIPTION 70 mls of clear yellow gellatenous fluid. SPECIAL STUDIES Flow cytometry has been performed at [facility], [place], [place]. The testing reveals: FINAL DIAGNOSIS: Specimen Source: Pleural fluid Flow cytometry immunophenotypic analysis: No evidence of an immunophenotypically abnormal cell population. Interpretative data: Blasts: 0% of gated events Lymphocytes: 53% of gated events B-cells: 4% of lymphs; kappa:lambda within normal limits T-cells/NK cells: No aberrant population detected. Markers tested: CD3, CD10, CD16, CD19, CD34, CD45, kappa surface light chains , lambda surface light chains, 7-AAD. Quality Assessment: Acceptable Viability: Acceptable Viable lymphocytes (7-AAD): 99% CONTINUED ON NEXT PAGE DEPARTMENT OF PATHOLOGY, [address] [place] [address] Caleb Cleveland M.D. Director [facility] # [id number] RUN DATE: 04/29/18 [facility] LAB LIVE PAGE 3 Patient: SILVESTRE KU [id number] (Continued) SPECIAL STUDIES (Continued) SPECIAL STUDIES (Continued) Specimen received within validated guidelines. A Roque-Giemsa stained slide prepared from the flow cytometry specimen was examined for quality purposes. Electronically signed by: Sherry Watkins MD 04/22/18 1511 Technical component performed by: [place] [address] Recreation Superintendent: Kwadwo Christian II, MD, PhD. Signed by and Reported on: Sherry Watkins MD 04/23/18 1152 END OF REPORT DEPARTMENT OF PATHOLOGY, [address] [place] [address] Caleb Cleveland M.D. Director [facility] # [id number] Procedures Date CPT Code Description Status 04/21/2018 97206 Thoracentesis Needle/Catheter Aspiration W/ Img Completed Guidance 11/28/2014 20641 Tympanometry Completed Encounters Type Date Location Provider CPT E/M Dx Office Visit 04/21/2018 [facility], [address] J90 10:15a Tri Bolanos [facility]iah [facility], [address] R06.02 1:40p [facility] J90 Office Visit 03/25/2018 9:30a [facility] Muse M.D. 02052 M25.562 C.M.AAleyda M25.462 M17.12 W19.xxxA Office Visit 03/23/2018 11:20a [facility] Kim Villegas M.D. 85544 D64.9 Of Nursing Service Administrator AT [place] R63.4 R63.0 Z85.72 Office Visit 03/09/2018 11:40a [facility] Kim Villegas M.D. 07873 D64.9 Of Nursing Service Administrator AT [place] R63.4 R63.0 N18.9 Z85.72 Office Visit 02/23/2018 11:40a [facility] Kim Villegas M.D. 56351 D64.9 Of Nursing Service Administrator AT [place] R63.4 R63.0 Z85.72 Office Visit 11/28/2014 3:00p [facility], [address] 381.81 C.M.AAleyda AT [place] Luis Miguel 389.10 Plan of Care Future Appointment(s):05/13/2018 10:00 am - Ro[facility] Gaston M.D. at [facility]05/06/2018 - Nasir Randle MDJ91.0 Malignant pleural effusionFollow up:One week with Dr. Gaston
[2018-05-11] MEDS: oxyCODONE TAB* 5 MG TAB PO PRN ×2 (14:25→20:36)
[2018-05-11] MEDS: Heparin VIAL(*) 5000 UNITS/ML VIAL (FIVE THOUSAND) SUBCUT SCH ×2 (14:27→20:37)
[2018-05-11] MEDS: NS 0.9% w/ 40 Meq KCL 1000 ML* 1,000 ML IV SCH (14:27)
[2018-05-11] MEDS: cefTRIAXone(*) 2 GM in NS 0.9% 100 ML* 100 ML IVPB SCH (15:25)
[2018-05-11] MEDS: Morphine TAB Extended Release (*) 15 MG TAB.ER PO SCH (17:13)
[2018-05-11] MEDS ORDERED: Senna TAB PO PRN (17:14)
[2018-05-11] MEDS ORDERED: Docusate CAP* 100 MG PO PRN (17:14)
[2018-05-11] MEDS: Furosemide IV* 10 MG/ML VIAL (40 MG) IV SLOW PU SCH (17:14)
[2018-05-11] MEDS: Insulin LISPRO* 1 UNITS UNIT SUBCUT SCH (17:14)
[2018-05-11] MEDS: Ticagrelor* 90 MG TAB PO SCH (20:36)
[2018-05-11] MEDS ORDERED: Morphine TAB Extended Release (*) 15 MG TAB.ER PO SCH (21:00)
[2018-05-11] MEDS ORDERED: Calcium Carbonate CHEW TAB* 500 MG (TUMS) PO ONE (22:50)
[2018-05-12] MEDS: NS 0.9% w/ 40 Meq KCL 1000 ML* 1,000 ML IV SCH ×2 (00:48→11:19)
[2018-05-12] MEDS: oxyCODONE TAB* 5 MG TAB PO PRN ×6 (00:48→19:43)
[2018-05-12] MEDS: Omeprazole CAP* 20 MG PO SCH (05:00)
[2018-05-12] MEDS: Levothyroxine TAB* 75 MCG TAB PO SCH (05:00)
[2018-05-12] MEDS: Heparin VIAL(*) 5000 UNITS/ML VIAL (FIVE THOUSAND) SUBCUT SCH ×3 (05:00→22:00)
[2018-05-12 06:12] LABS: ABS Basophils 0 10^3/ul (0-0.2); ABS Eosinophils 0 10^3/ul (0-0.6); ABS Lymphocytes 0.7 10^3/ul (1.0-4.8); ABS Monocytes 0.3 10^3/ul (0-0.8); ABS Neutrophils 8.1 10^3/ul (1.5-7.7); ABS Nucleated RBC 0.1 10^3/ul; Eosinophil % 0.1 % (0-6); Hematocrit 21 % (42-52); Lymphocyte % 7.6 % (25-47); Mean Corpuscular HGB Conc 33 g/dl (31-36); Mean Corpuscular Hemoglobin 24 pg (27-31); Mean Corpuscular Volume 72 fL (80-94); Mean Platelet Volume 7.7 um3 (7.4-10.4); Nucleated Red Blood Cells % 0.6; Platelet Count 234 10^3/ul (150-450); Red Blood Count 2.92 10^6/ul (4.00-5.40); Red Cell Distribution Width 21 % (10.5-15); White Blood Count 9.1 10^3/ul (3.5-10.8)
[2018-05-12 06:26] LABS: EGFR Non-African American 17.3 (>60)
[2018-05-12] MEDS ORDERED: Metolazone TAB* 5 MG PO SCH ×2 (07:30→09:00)
[2018-05-12] MEDS: Multivitamins/Minerals TAB PO SCH (07:54)
[2018-05-12] MEDS: Aspirin EC TAB* 81 MG TAB.EC PO SCH (07:55)
[2018-05-12] MEDS: lamoTRIgine TAB(*) 100 MG PO SCH ×2 (07:55→19:41)
[2018-05-12] MEDS: BuPROPion XL* 300 MG TAB.XL PO SCH (07:55)
[2018-05-12] MEDS: Morphine TAB Extended Release (*) 15 MG TAB.ER PO SCH ×2 (07:55→19:42)
[2018-05-12] MEDS: Ticagrelor* 90 MG TAB PO SCH ×2 (07:55→19:43)
[2018-05-12] MEDS: Insulin LISPRO* 1 UNITS UNIT SUBCUT SCH ×3 (08:43→17:48)
[2018-05-12] MEDS: Furosemide IV* 10 MG/ML VIAL (40 MG) IV SLOW PU SCH ×2 (08:45→17:49)
--- NOTE | 2018-05-12 10:40 | RAD ---
Indication: Assess for ascites. Pancreatic cancer. Comparison: April 30, 2000 CT. Technique: Four-quadrant Limited abdominal ultrasound to assess for ascites. REPORT AND IMPRESSION: #. No ascites detected within the 4 quadrants of the abdomen.
--- NOTE | 2018-05-12 10:41 | RAD ---
INDICATION: Hydronephrosis. COMPARISON: Comparison is made with a prior CT of the abdomen and pelvis from April 30, 2018. TECHNIQUE: Multiple real-time images of the kidneys were obtained. FINDINGS: The kidneys are normal in size shape and echogenicity. The right kidney measured 10.6 x 5.4 x 5.8 cm and the left kidney measured 11.8 x 6.2 x 5.7 cm. There appears to be egdz-iz-[id number] left hydronephrosis. No focal renal abnormality is seen. IMPRESSION: MILD TO MODERATE LEFT HYDRONEPHROSIS.
--- NOTE | 2018-05-12 12:13 | PN ---
Progress Note - Progress Note Date of Service: 05/12/18 SOAP: Subjective: [Still having some discomfort in the abdomen most in the R side, relatively well managed on current pain medications. No SOB or chest pain.] Objective: [ Vital Signs Temp Pulse Resp BP Pulse Ox 97.6 F 94 20 117/58 94 05/12/18 06:30 05/12/18 10:59 05/12/18 10:59 05/12/18 10:59 05/12/18 10:59 Laboratory Results - last 24 hr 05/11/18 05/12/18 05/12/18 23:23 05:35 05:35 WBC 9.1 RBC 2.92 L Hgb 7.0 L Hct 21 L MCV 72 L MCH 24 L MCHC 33 RDW 21 H Plt Count 234 MPV 7.7 Neut % (Auto) 89.3 H Lymph % (Auto) 7.6 L Gooding % (Auto) 2.9 Eos % (Auto) 0.1 Baso % (Auto) 0.1 Absolute Neuts (auto) 8.1 H Absolute Lymphs (auto) 0.7 L Absolute Monos (auto) 0.3 Absolute Eos (auto) 0 Absolute Basos (auto) 0 Absolute Nucleated RBC 0.1 Nucleated RBC % 0.6 Sodium 131 L Potassium 3.3 L Chloride 97 L Carbon Dioxide 21 L Anion Gap 13 H BUN 37 H Creatinine 3.53 H Est GFR ( Amer) 21.0 Est GFR (Non-Af Amer) 17.3 BUN/Creatinine Ratio 10.5 Glucose 188 H POC Glucose (mg/dL) 221 H Calcium 8.0 L Total Bilirubin 0.20 AST 31 ALT 16 Alkaline Phosphatase 129 H Total Protein 5.2 L Albumin 2.1 L Globulin 3.1 Albumin/Globulin Ratio 0.7 L 05/12/18 05/12/18 07:45 11:19 WBC RBC Hgb Hct MCV MCH MCHC RDW Plt Count MPV Neut % (Auto) Lymph % (Auto) Gooding % (Auto) Eos % (Auto) Baso % (Auto) Absolute Neuts (auto) Absolute Lymphs (auto) Absolute Monos (auto) Absolute Eos (auto) Absolute Basos (auto) Absolute Nucleated RBC Nucleated RBC % Sodium Potassium Chloride Carbon Dioxide Anion Gap BUN Creatinine Est GFR ( Amer) Est GFR (Non-Af Amer) BUN/Creatinine Ratio Glucose POC Glucose (mg/dL) 199 H 193 H Calcium Total Bilirubin AST ALT Alkaline Phosphatase Total Protein Albumin Globulin Albumin/Globulin Ratio Aspirin (Aspirin Ec Tab*) 81 mg PO DAILY [facility] Last Admin: 05/12/18 07:55 Dose: 81 mg Bupropion HCl (Bupropion Xl*) 300 mg PO DAILY [facility] Last Admin: 05/12/18 07:55 Dose: 300 mg Dextrose (D50w Syringe 50 Ml*) 12.5 gm IV PUSH .FOR FS < 60 - SS PRN PRN Reason: FS < 60 Docusate Sodium (Colace Cap*) 200 mg PO BID [facility] Furosemide (Lasix Iv*) 40 mg IV SLOW PU 0800,1700 [facility] Last Admin: 05/12/18 08:45 Dose: 40 mg Heparin Sodium (Porcine) (Heparin Flush Port (Ivad)) 5 ml FLUSH DAILY [facility]; Protocol Last Admin: 05/12/18 07:58 Dose: Not Given Heparin Sodium (Porcine) (Heparin Vial(*)) 5,000 units SUBCUT Q8HR [facility] Last Admin: 05/12/18 05:00 Dose: 5,000 units Ceftriaxone Sodium 2 gm/ (Sodium Chloride) 100 mls @ 200 mls/hr IVPB Q24H [facility] Last Admin: 05/11/18 15:25 Dose: 200 mls/hr Insulin Human Lispro (Humalog*) 0 units SUBCUT AC [facility]; Protocol Last Admin: 05/12/18 08:43 Dose: 3 units Lamotrigine (Lamictal Tab(*)) 100 mg PO BID [facility] Last Admin: 05/12/18 07:55 Dose: 100 mg Levothyroxine Sodium (Synthroid Tab*) 75 mcg PO DAILY@0600 [facility] Last Admin: 05/12/18 05:00 Dose: 75 mcg Morphine Sulfate (Ms Contin(*)) 15 mg PO BID [facility] Last Admin: 05/12/18 07:55 Dose: 15 mg Multivitamins/Minerals (Theragran/Minerals Tab*) 1 tab PO DAILY [facility] Last Admin: 05/12/18 07:54 Dose: 1 tab Omeprazole (Prilosec Cap*) 20 mg PO DAILY@0600 [facility] Last Admin: 05/12/18 05:00 Dose: 20 mg Ondansetron HCl (Zofran Tab*) 4 mg PO Q6HR PRN PRN Reason: NAUSEA Oxycodone HCl (Roxycodone Tab*) 5 mg PO Q4HR PRN PRN Reason: PAIN - BREAKTHROUGH Last Admin: 05/12/18 08:42 Dose: 5 mg Prochlorperazine (Compazine Tab*) 10 mg PO Q6HR PRN PRN Reason: NAUSEA/VOMITING Senna (Senokot Tab*) 1 tab PO BID [facility] Ticagrelor (Brilinta*) 90 mg PO BID [facility] Last Admin: 05/12/18 07:55 Dose: 90 mg Exam: Gen: Chronically ill, somewhat uncomfortable appearing, accompanied by his HEENT: MMM CV: RRR, no m/r/g Resp: few crackles at lung bases Abd: distended, some pitting edema, diffusely TTP Ext: 2+ pitting edema] Assessment: [67 yo male with metastatic pancreatic CA with malignant R sided pleural effusion admitted with concern for cellulitis over his abdomen, accumulating SQ fluid and worsening renal function and anemia.] Plan: [1. Cellulitis - cont ceftriaxone (PEN allergic) - afebrile 2. R pleural effusion with PleurX catheter in place - accumulation of SQ fluid over abdomen, abd US neg for ascites - check CXR to evaluate whether evaluation effusion is still present - discussed with Dr Gaston, depending on CXR results will either attempt additional drainage or removal of the catheteer 3. Acute on chronic renal insufficiency - Appears euvolemic with significant 3rd spacing on exam - Cr climbed today with IVF and diuretics given yesterday - renal US shows L hydronephrosis - CT without contrast to eval for obstructing stone - stop IVF and consider Lasix drip depending on results of CT - cont to monitor 4. Anemia - degree of anemia seems out of proportion to what would be expected from C1 gem /abraxane - pending stool for occult blood - no obvious bleeding - asx, transfuse for Hgb <7 5. Metastatic pancreatic CA - C1D1 gemcitabine/abraxane 05/04/18
--- NOTE | 2018-05-12 12:20 | PN ---
Progress Note - Progress Note Date of Service: 05/12/18 Note: Asked to eval right PleurX cath. According to pt was last drained a few days ago, and didn't drain much. He has edema of right flank, raising concern of leakage of pleural fluid into subcut. I D/W Candelaria Harper--will get CXR to see if any effusion.
--- NOTE | 2018-05-12 12:41 | PN ---
Progress Note - Progress Note Date of Service: 05/11/18 SOAP: Subjective: Pt seen and pleurax catheter site reviewed Objective: no cellulitis at pleurx catheter site clear drainage persistent around tubing Assessment: malfunctioning catheter- no signs of infection Plan: wound care will have group reevaluate in am
[2018-05-12] MEDS: cefTRIAXone(*) 2 GM in NS 0.9% 100 ML* 100 ML IVPB SCH (13:41)
--- NOTE | 2018-05-12 13:58 | RAD ---
INDICATION: Evaluate for recurrent effusion COMPARISON: May 03, 2018 TECHNIQUE: PA and lateral dual-energy views were obtained. FINDINGS: Bones/Soft Tissues: There are no acute bony findings. There is a right-sided Ytqfsm-t-Feat catheter Cardiomediastinal: The cardiomediastinal silhouette is normal. Lungs: There are mild bibasilar infiltrates. Pleura: There is a small right subpleural effusion, unchanged. There is fluid in the minor fissure. Other: None IMPRESSION: SMALL BILATERAL INFILTRATES REPRESENTING INTERVAL WORSENING. SMALL RIGHT-SIDED EFFUSION, UNCHANGED.
--- NOTE | 2018-05-12 14:35 | RAD ---
INDICATION: Evaluate for hydronephrosis COMPARISON: CT April 30, 2018 TECHNIQUE: Noncontrast axial source images were acquired from the level hemidiaphragms to the symphysis pubis as part of CT imaging for renal stone. Lung bases: There is mild progression of airspace disease with peribronchial thickening and mild dependent consolidative changes. There is a 7 mm nodular focus in the right lung base on axial reference image 9/1 9 2 appearing essentially unchanged. There are small bilateral pleural effusions which have decreased in size. There is a small caliber right-sided chest. There is a small pericardial effusion at the base of the heart Liver: The liver is normal in size. Noncontrast imaging shows no evidence of a hepatic mass or ductal dilatation. There are limitations due to beam morning artifact from patient's arm Gallbladder: No gross abnormalities. No calcified gallstones are seen. Spleen: Limited evaluation. The spleen is normal in size. The noncontrast CT appearance is normal. Pancreas: There are no definitive pancreatic abnormalities within limitations of this study. There is peripancreatic stranding but this also extends into the mesentery so this may not be related to a primary pancreatic process. Similar findings were present previously Adrenal glands: No masses are identified. Kidneys/Bladder: There is significant bilateral perinephric stranding similar to the previous examination. In the left suprarenal space this stranding slightly more prominent but appear slightly less masslike on the current examination. There is no nephrolithiasis or definite hydronephrosis. There is no focal renal mass on noncontrast evaluation. Adenopathy: No definitive lymphadenopathy but this is considered a limited study. Fluid collections: Diffuse mesenteric edema. Subcutaneous edema compatible with anasarca. Vessels: The aorta and iliac vessels are normal in caliber. There are minor atherosclerotic changes. The IVC appears normal Pelvic organs: The prostate and seminal vesicles appear normal GI tract: Limited evaluation of gross abnormalities 7 mm. Soft tissues: Subcutaneous edema compatible with anasarca. Osseous structures: No acute osseous changes. IMPRESSION: 1. This is a limited examination due to the noncontrast nature of the examination. There is also artifact from the patient's arm which could not be raised over his head. 2. Mild progression of infiltrative changes in lung bases. Stable small 7 mm right lung nodule. 3. Small pericardial effusion. 4. Decrease in the pleural effusions. There is a right sided chest tube. 5. There is diffuse stranding in the mesentery particularly around the pancreas and within the mesentery and in the perinephric spaces. This appears unchanged. 6. No definite hydronephrosis. No renal calculi are appreciated. 7. Anasarca 8. Suggest contrast enhanced imaging with the patient's arms above his head if possible if further imaging is required.
[2018-05-12] MEDS: Docusate CAP* 100 MG PO SCH (19:41)
[2018-05-12] MEDS: Senna TAB PO SCH (19:42)
[2018-05-13] MEDS: oxyCODONE TAB* 5 MG TAB PO PRN ×4 (00:53→23:45)
[2018-05-13] MEDS: Levothyroxine TAB* 75 MCG TAB PO SCH (06:01)
[2018-05-13] MEDS: Heparin VIAL(*) 5000 UNITS/ML VIAL (FIVE THOUSAND) SUBCUT SCH ×2 (06:01→19:37)
[2018-05-13] MEDS: Omeprazole CAP* 20 MG PO SCH (06:01)
[2018-05-13] MEDS: Furosemide IV* 10 MG/ML VIAL (40 MG) IV SLOW PU SCH ×2 (07:44→20:32)
[2018-05-13] MEDS: Morphine TAB Extended Release (*) 15 MG TAB.ER PO SCH ×2 (07:47→19:39)
[2018-05-13] MEDS: Senna TAB PO SCH ×2 (07:48→19:38)
[2018-05-13] MEDS: Aspirin EC TAB* 81 MG TAB.EC PO SCH (07:48)
[2018-05-13] MEDS: lamoTRIgine TAB(*) 100 MG PO SCH ×2 (07:48→19:39)
[2018-05-13] MEDS: Multivitamins/Minerals TAB PO SCH (07:48)
[2018-05-13] MEDS: BuPROPion XL* 300 MG TAB.XL PO SCH (07:48)
[2018-05-13] MEDS: Docusate CAP* 100 MG PO SCH ×2 (07:48→19:39)
[2018-05-13] MEDS: Ticagrelor* 90 MG TAB PO SCH ×2 (07:48→19:39)
[2018-05-13] MEDS: Insulin LISPRO* 1 UNITS UNIT SUBCUT SCH ×3 (08:29→17:55)
--- NOTE | 2018-05-13 08:35 | PN ---
Progress Note - Progress Note Date of Service: 05/13/18 Note: S/P PleurX cath CXR shows minimal effusion Aspirated tube--No drainage Edema right side a little worse PleurX cath removed without difficulty Bandage placed Will follow prn
[2018-05-13 09:18] LABS: Hematocrit 24 % (42-52); Mean Corpuscular HGB Conc 34 g/dl (31-36); Mean Corpuscular Hemoglobin 24 pg (27-31); Mean Corpuscular Volume 72 fL (80-94); Mean Platelet Volume 7.7 um3 (7.4-10.4); Platelet Count 261 10^3/ul (150-450); Red Blood Count 3.32 10^6/ul (4.00-5.40); Red Cell Distribution Width 21 % (10.5-15)
[2018-05-13 09:19] LABS: EGFR Non-African American 14.7 (>60)
[2018-05-13 10:22] LABS: ABS Basophils 0 10^3/ul (0-0.2); ABS Neutrophils 8.9 10^3/ul (1.5-7.7); ABS Neutrophils 9.8 10^3/ul (1.5-7.7); Monocytes % 2 % (0-7)
--- NOTE | 2018-05-13 10:39 | PN ---
Progress Note - Progress Note Date of Service: 05/13/18 SOAP: Subjective: chest tube removed today. still w significant discomfort along chest wall with poor control of pain. no BM x 4 days. some auditory and visual hallucinations over night. this has happened in the past and he does carry a diagnosis of bipolar disorder. he reports to me this am that he is not concerned about this. +some dysphagia starting last night. Objective: Vital Signs Temp Pulse Resp BP Pulse Ox 97.8 F 94 22 115/50 96 05/13/18 07:57 05/13/18 07:57 05/13/18 08:00 05/13/18 07:57 05/13/18 07:57 lying flat in bed breathing comfortably generalized anasarca s1 s2 nl CTA anteriorly chest tube removal site clean, erythema down right flank across midline to left obese NT +bs anasarcic abdominal wall 3+ pitting edema to knees, 1+ to hips A+Ox 3, grossly nonfocal Laboratory Results - last 24 hr 05/12/18 05/12/18 05/12/18 11:19 16:36 21:15 WBC RBC Hgb Hct MCV MCH MCHC RDW Plt Count MPV Absolute Neuts (auto) Neutrophils % Lymphocytes % Monocytes % Eosinophils % Basophils % Abs Neuts (Manual) Abs Lymphs (Manual) Abs Monocytes (Manual) Absolute Eos (Manual) Abs Basophils (Manual) Nucleated RBCs/100 WBC Normal RBC Morphology Hypochromasia Sodium Potassium Chloride Carbon Dioxide Anion Gap BUN Creatinine Est GFR ( Amer) Est GFR (Non-Af Amer) BUN/Creatinine Ratio Glucose POC Glucose (mg/dL) 193 H 198 H 214 H Calcium Total Bilirubin AST ALT Alkaline Phosphatase Total Protein Albumin Globulin Albumin/Globulin Ratio 05/13/18 05/13/18 05/13/18 00:35 07:27 08:50 WBC 11.0 H RBC 3.32 L Hgb 8.0 L Hct 24 L MCV 72 L MCH 24 L MCHC 34 RDW 21 H Plt Count 261 MPV 7.7 Absolute Neuts (auto) 8.9 H Neutrophils % 89 H Lymphocytes % 9 L Monocytes % 2 Eosinophils % 0 Basophils % 0 Abs Neuts (Manual) 9.8 H Abs Lymphs (Manual) 1.0 Abs Monocytes (Manual) 0.2 Absolute Eos (Manual) 0 Abs Basophils (Manual) 0 Nucleated RBCs/100 WBC 0 Normal RBC Morphology Not Reportable Hypochromasia 1+ Sodium Potassium Chloride Carbon Dioxide Anion Gap BUN Creatinine Est GFR ( Amer) Est GFR (Non-Af Amer) BUN/Creatinine Ratio Glucose POC Glucose (mg/dL) 214 H 213 H Calcium Total Bilirubin AST ALT Alkaline Phosphatase Total Protein Albumin Globulin Albumin/Globulin Ratio 05/13/18 08:50 WBC RBC Hgb Hct MCV MCH MCHC RDW Plt Count MPV Absolute Neuts (auto) Neutrophils % Lymphocytes % Monocytes % Eosinophils % Basophils % Abs Neuts (Manual) Abs Lymphs (Manual) Abs Monocytes (Manual) Absolute Eos (Manual) Abs Basophils (Manual) Nucleated RBCs/100 WBC Normal RBC Morphology Hypochromasia Sodium 128 L Potassium 3.2 L Chloride 93 L Carbon Dioxide 22 Anion Gap 13 H BUN 44 H Creatinine 4.08 H Est GFR ( Amer) 17.7 Est GFR (Non-Af Amer) 14.7 BUN/Creatinine Ratio 10.8 Glucose 208 H POC Glucose (mg/dL) Calcium 8.4 L Total Bilirubin 0.30 AST 29 ALT 18 Alkaline Phosphatase 155 H Total Protein 6.0 L Albumin 2.5 L Globulin 3.5 Albumin/Globulin Ratio 0.7 L Aspirin (Aspirin Ec Tab*) 81 mg PO DAILY [facility] Last Admin: 05/13/18 07:48 Dose: 81 mg Bupropion HCl (Bupropion Xl*) 300 mg PO DAILY [facility] Last Admin: 05/13/18 07:48 Dose: 300 mg Dextrose (D50w Syringe 50 Ml*) 12.5 gm IV PUSH .FOR FS < 60 - SS PRN PRN Reason: FS < 60 Docusate Sodium (Colace Cap*) 200 mg PO BID [facility] Last Admin: 05/13/18 07:48 Dose: 200 mg Furosemide (Lasix Iv*) 40 mg IV SLOW PU 0800,1700 [facility] Last Admin: 05/13/18 07:44 Dose: 40 mg Heparin Sodium (Porcine) (Heparin Flush Port (Ivad)) 5 ml FLUSH DAILY [facility]; Protocol Last Admin: 05/13/18 07:46 Dose: 5 ml Heparin Sodium (Porcine) (Heparin Vial(*)) 5,000 units SUBCUT Q8HR [facility] Last Admin: 05/13/18 06:01 Dose: 5,000 units Ceftriaxone Sodium 2 gm/ (Sodium Chloride) 100 mls @ 200 mls/hr IVPB Q24H [facility] Last Admin: 05/12/18 13:41 Dose: 200 mls/hr Insulin Human Lispro (Humalog*) 0 units SUBCUT AC [facility]; Protocol Last Admin: 05/13/18 08:29 Dose: 6 units Lamotrigine (Lamictal Tab(*)) 100 mg PO BID [facility] Last Admin: 05/13/18 07:48 Dose: 100 mg Levothyroxine Sodium (Synthroid Tab*) 75 mcg PO DAILY@0600 [facility] Last Admin: 05/13/18 06:01 Dose: 75 mcg Morphine Sulfate (Ms Contin(*)) 15 mg PO BID [facility] Last Admin: 05/13/18 07:47 Dose: 15 mg Multivitamins/Minerals (Theragran/Minerals Tab*) 1 tab PO DAILY [facility] Last Admin: 05/13/18 07:48 Dose: 1 tab Omeprazole (Prilosec Cap*) 20 mg PO DAILY@0600 [facility] Last Admin: 05/13/18 06:01 Dose: 20 mg Ondansetron HCl (Zofran Tab*) 4 mg PO Q6HR PRN PRN Reason: NAUSEA Oxycodone HCl (Roxycodone Tab*) 10 mg PO Q4HR PRN PRN Reason: PAIN - BREAKTHROUGH Polyethylene Glycol/Electrolytes (Miralax*) 17 gm PO Q12H [facility] Prochlorperazine (Compazine Tab*) 10 mg PO Q6HR PRN PRN Reason: NAUSEA/VOMITING Senna (Senokot Tab*) 1 tab PO BID [facility] Last Admin: 05/13/18 07:48 Dose: 1 tab Ticagrelor (Brilinta*) 90 mg PO BID [facility] Last Admin: 05/13/18 07:48 Dose: 90 mg Assessment: 67 yo M w mild CRI, DM, and newly diagnosed pancreatic cancer c/b malignant R sided pleural effusion admitted with concern for cellulitis over his abdomen ( at site of pleurex catheter), accumulating SQ fluid and worsening renal function and anemia. Plan: 1. Cellulitis - cont ceftriaxone (PEN allergic) - afebrile 2. R pleural effusion with PleurX catheter: CXR yesterday with essential resolution of most of fluid so catheter removed this am. still unclear to me if cellulitis represents so extravesation of his fluid into his subcutaneous fluid 3. Acute on chronic renal insufficiency CT without hydronephrosis, grossly anasarcic right now with worsening renal function. I have asked Dr. Aiken to see him in consultation as he will ikely need albumin/lasix drip. Given his anasarca I do not want to challenge him with more gemcitabine, and we discussed that we will likely switch to FOLFOX on discharge depending on improvement. -will defer electrolyte repletion to Dr. Aiken 4. hypoalbuminemia, prealbumin 3. severe protein calorie malnutrition 5. constipation: likely narcotic induced add miralax 6.pain control: inadequate. increased oxycodone to 10 mg, keep long acting the same DNR heparin sc, will change to q12
[2018-05-13] MEDS: Polyethylene Glycol 3350* 17 GM PACKET PO SCH ×2 (12:24→23:24)
[2018-05-13] MEDS: cefTRIAXone(*) 2 GM in NS 0.9% 100 ML* 100 ML IVPB SCH (12:26)
--- NOTE | 2018-05-13 15:47 | CONS ---
CC: Dr. Wallace * NEPHROLOGY CONSULTATION: DATE OF CONSULT: 05/13/18 HISTORY OF PRESENT ILLNESS: Mr. Baugh is a 67-year-old gentleman with a history of metastatic pancreatic carcinoma with extension into his pleura. He had not yet begun on chemotherapy for his pancreatic cancer. When he began to notice significant swelling to the right lower chest area, he then developed considerable swelling of his abdomen. He had been having worsening pedal edema over the past few months. He has noticed some anorexia. He has had significant bilateral flank pain. He has noticed some change in his urine pattern and that his urine volume has decreased. He has been having to use more aggressive diuretics for his edema with the addition of metolazone to furosemide. He has felt somewhat dehydrated even in the face of worsening edema. His recent history is that he developed a pleural effusion and had a leak at the site of PleurX drain. His previous medical history is significant for a marginal zone lymphoma. He has had history of a left axillary mass, which has been stable. He has a recent onset of anemia and easy fatigability. PAST MEDICAL HISTORY: Significant for asthma, diabetes mellitus type 2, hyperlipidemia, hypertension, history of melanoma, and bipolar disorder. MEDICATIONS: At the time of admission included, 1. Occasional doses of Tylenol. 2. Actos 45 mg daily. 3. Aspirin 81 mg daily. 4. Bactrim DS 1 b.i.d. for 10 days for apparently what was thought to be cellulitis on the right side of his chest. 5. Brilinta 90 mg twice a day. 6. Bupropion 300 mg daily. 7. Compazine 10 mg every 6 hours p.r.n. 8. Crestor 40 mg daily. 9. Furosemide 80 mg daily. 10. Lamictal 100 mg b.i.d. 11. Levemir 50 units subcutaneously daily. 12. Levothyroxine 75 mcg daily. 13. Metolazone 5 mg before furosemide. 14. Multivitamins 1 daily. 15. Oxycodone 5 mg p.r.n. 16. Zofran 4 mg daily. 17. MorphaBond 15 mg b.i.d. FAMILY HISTORY: Significant and that his mother of an unknown carcinoma. SOCIAL HISTORY: He is , lives with his . He quit smoking 45 years ago. REVIEW OF SYSTEMS: No visual problems. No hearing problems. No chest pain, but he does feel like food gets stuck mid esophagus levels. No changes in his bowel habits. PHYSICAL EXAM: He is a well-developed, white gentleman, who appears markedly edematous. His blood pressure is 129/48 with a pulse of 93, he is afebrile, respirations are 20. He is anicteric. His extraocular muscles are intact. The mucous membranes are moist. The chest revealed diminished breath sounds to the right base, but is otherwise clear. The heart revealed a regular rhythm. I could not hear any murmurs. His abdomen is distended. There is a positive fluid wave. Bones, Joints, Extremities: He has 3+ edema. Neurologic: He is alert, oriented. He moves all 4 extremities well. DIAGNOSTIC STUDIES/LAB DATA: Review of his laboratory studies reveals a white count of 11,000, hemoglobin of 8, platelet count of 261,000. Sodium 128, potassium of 3.2, total CO2 22, chloride 93, BUN 44 with a creatinine of 4.08. His baseline creatinine on 05/04/18, was 1.52. His calcium is 8.4 with an albumin of 2.5 and prealbumin of 3. Urinalysis reveals 1+ protein, 2+ blood, 2 + rbc's. His fractional excretion of sodium could not be calculated as his random urinary sodium level was less than 18. IMPRESSION AND PLAN: This appears to be a significant prerenal acute renal injury probably on the basis of his total fluid overload. He is really not in his intravascular space. It is going to be a very difficult thing diuresing him. I think he should be placed on an albumin infusion in order to be able to mobilize up his edema fluid. I have discussed the case with Dr. Villegas. [id number]/[facility] #: [id number] [place]
[2018-05-13] MEDS ORDERED: Albumin Human 25%* 25 GM/100 ML IV ONE (16:00)
[2018-05-13] MEDS ORDERED: Metolazone TAB* 5 MG PO ONE (18:00)
[2018-05-13] MEDS: Albumin Human 25%* 25 GM/100 ML BTL IV SCH (19:43)
[2018-05-14] MEDS: oxyCODONE TAB* 5 MG TAB PO PRN ×4 (04:17→21:02)
[2018-05-14] MEDS: Levothyroxine TAB* 75 MCG TAB PO SCH (06:39)
[2018-05-14] MEDS: Omeprazole CAP* 20 MG PO SCH (06:39)
[2018-05-14] MEDS: Albumin Human 25%* 25 GM/100 ML BTL IV SCH ×2 (06:51→16:51)
[2018-05-14 07:54] LABS: EGFR Non-African American 13.4 (>60)
[2018-05-14] MEDS: lamoTRIgine TAB(*) 100 MG PO SCH ×2 (08:04→21:04)
[2018-05-14] MEDS: Multivitamins/Minerals TAB PO SCH (08:04)
[2018-05-14] MEDS: Ticagrelor* 90 MG TAB PO SCH (08:04)
[2018-05-14] MEDS: Senna TAB PO SCH ×2 (08:04→21:08)
[2018-05-14] MEDS: Aspirin EC TAB* 81 MG TAB.EC PO SCH (08:05)
[2018-05-14] MEDS: Furosemide IV* 10 MG/ML VIAL (40 MG) IV SLOW PU SCH ×2 (08:05→08:53)
[2018-05-14] MEDS: Docusate CAP* 100 MG PO SCH ×2 (08:05→21:08)
[2018-05-14] MEDS: BuPROPion XL* 300 MG TAB.XL PO SCH (08:05)
[2018-05-14] MEDS: Heparin VIAL(*) 5000 UNITS/ML VIAL (FIVE THOUSAND) SUBCUT SCH ×2 (08:06→21:06)
[2018-05-14 08:19] LABS: ABS Nucleated RBC 0.1 10^3/ul; Hematocrit 21 % (42-52); Hemoglobin 6.7 g/dl (14.0-18.0); Mean Corpuscular HGB Conc 32 g/dl (31-36); Mean Corpuscular Hemoglobin 24 pg (27-31); Mean Corpuscular Volume 73 fL (80-94); Nucleated Red Blood Cells % 0.5; Platelet Count 214 10^3/ul (150-450); Red Blood Count 2.84 10^6/ul (4.00-5.40); Red Cell Distribution Width 21 % (10.5-15); White Blood Count 9.5 10^3/ul (3.5-10.8)
[2018-05-14 08:57] LABS: ABS Basophils 0 10^3/ul (0-0.2); ABS Neutrophils 8.4 10^3/ul (1.5-7.7); Monocytes % 2 % (0-7)
[2018-05-14] MEDS ORDERED: Bisacodyl SUPP* 10 MG SUPP PR ONE (09:29)
--- NOTE | 2018-05-14 09:47 | PN ---
Progress Note - Progress Note Date of Service: 05/14/18 SOAP: Subjective: [Reports some generalized weakness. Mild GARCIA, no CP. Pain control improving.] Objective: [ Laboratory Results - last 24 hr 05/13/18 05/13/18 05/13/18 08:50 11:15 16:52 WBC RBC Hgb Hct MCV MCH MCHC RDW Plt Count MPV Neut % (Auto) Lymph % (Auto) [place] % (Auto) Eos % (Auto) Baso % (Auto) Absolute Neuts (auto) 8.9 H Absolute Lymphs (auto) Absolute Monos (auto) Absolute Eos (auto) Absolute Basos (auto) Absolute Nucleated RBC Neutrophils % 89 H Lymphocytes % 9 L Monocytes % 2 Eosinophils % 0 Basophils % 0 Nucleated RBC % Abs Neuts (Manual) 9.8 H Abs Lymphs (Manual) 1.0 Abs Monocytes (Manual) 0.2 Absolute Eos (Manual) 0 Abs Basophils (Manual) 0 Nucleated RBCs/100 WBC 0 Normal RBC Morphology Not Reportable Polychromasia Hypochromasia 1+ Target Cells Sodium Potassium Chloride Carbon Dioxide Anion Gap BUN Creatinine Est GFR ( Amer) Est GFR (Non-Af Amer) BUN/Creatinine Ratio Glucose POC Glucose (mg/dL) 169 H 200 H Calcium Magnesium Total Bilirubin AST ALT Alkaline Phosphatase Total Protein Albumin Globulin Albumin/Globulin Ratio 05/13/18 05/14/18 05/14/18 20:36 06:00 06:00 WBC 9.5 RBC 2.84 L Hgb 6.7 L Hct 21 L MCV 73 L MCH 24 L MCHC 32 RDW 21 H Plt Count 214 MPV 8.0 Neut % (Auto) Not Reportable Lymph % (Auto) Not Reportable [place] % (Auto) Not Reportable Eos % (Auto) Not Reportable Baso % (Auto) Not Reportable Absolute Neuts (auto) Not Reportable Absolute Lymphs (auto) Not Reportable Absolute Monos (auto) Not Reportable Absolute Eos (auto) Not Reportable Absolute Basos (auto) Not Reportable Absolute Nucleated RBC 0.1 Neutrophils % 88 H Lymphocytes % 10 L Monocytes % 2 Eosinophils % 0 Basophils % 0 Nucleated RBC % 0.5 Abs Neuts (Manual) 8.4 H Abs Lymphs (Manual) 1.0 Abs Monocytes (Manual) 0.2 Absolute Eos (Manual) 0 Abs Basophils (Manual) 0 Nucleated RBCs/100 WBC Normal RBC Morphology Not Reportable Polychromasia 1+ Hypochromasia Target Cells 1+ Sodium Potassium Chloride Carbon Dioxide Anion Gap BUN Creatinine Est GFR ( Amer) Est GFR (Non-Af Amer) BUN/Creatinine Ratio Glucose POC Glucose (mg/dL) 183 H Calcium Magnesium 2.1 Total Bilirubin AST ALT Alkaline Phosphatase Total Protein Albumin Globulin Albumin/Globulin Ratio 05/14/18 05/14/18 06:00 08:04 WBC RBC Hgb Hct MCV MCH MCHC RDW Plt Count MPV Neut % (Auto) Lymph % (Auto) [place] % (Auto) Eos % (Auto) Baso % (Auto) Absolute Neuts (auto) Absolute Lymphs (auto) Absolute Monos (auto) Absolute Eos (auto) Absolute Basos (auto) Absolute Nucleated RBC Neutrophils % Lymphocytes % Monocytes % Eosinophils % Basophils % Nucleated RBC % Abs Neuts (Manual) Abs Lymphs (Manual) Abs Monocytes (Manual) Absolute Eos (Manual) Abs Basophils (Manual) Nucleated RBCs/100 WBC Normal RBC Morphology Polychromasia Hypochromasia Target Cells Sodium 131 L Potassium 2.9 L Chloride 94 L Carbon Dioxide 21 L Anion Gap 16 H BUN 50 H Creatinine 4.41 H Est GFR ( Amer) 16.2 Est GFR (Non-Af Amer) 13.4 BUN/Creatinine Ratio 11.3 Glucose 205 H POC Glucose (mg/dL) 229 H Calcium 8.4 L Magnesium Total Bilirubin 0.30 AST 22 ALT 15 Alkaline Phosphatase 117 H Total Protein 5.8 L Albumin 2.8 L Globulin 3.0 Albumin/Globulin Ratio 0.9 L Aspirin (Aspirin Ec Tab*) 81 mg PO DAILY [facility] Last Admin: 05/14/18 08:05 Dose: 81 mg Bisacodyl (Dulcolax Supp*) 10 mg [place] ONCE ONE Stop: 05/14/18 09:30 Bupropion HCl (Bupropion Xl*) 300 mg PO DAILY [facility] Last Admin: 05/14/18 08:05 Dose: 300 mg Dextrose (D50w Syringe 50 Ml*) 12.5 gm IV PUSH .FOR FS < 60 - SS PRN PRN Reason: FS < 60 Docusate Sodium (Colace Cap*) 200 mg PO BID [facility] Last Admin: 05/14/18 08:05 Dose: 200 mg Heparin Sodium (Porcine) (Heparin Flush Port (Ivad)) 5 ml FLUSH DAILY [facility]; Protocol Last Admin: 05/13/18 07:46 Dose: 5 ml Heparin Sodium (Porcine) (Heparin Vial(*)) 5,000 units SUBCUT Q12H [facility] Last Admin: 05/14/18 08:06 Dose: 5,000 units Ceftriaxone Sodium 2 gm/ (Sodium Chloride) 100 mls @ 200 mls/hr IVPB Q24H [facility] Last Admin: 05/13/18 12:26 Dose: 200 mls/hr Albumin Human (Albumin Human 25%*) 25 gm in 100 mls @ 12 mls/hr IV Q8H [facility] Last Admin: 05/14/18 06:51 Dose: 12 mls/hr Furosemide 100 mg/ Sodium (Chloride) 100 mls @ 10 mls/hr IV .(as INITIAL RATE) [facility] Potassium Chloride (Potassium Chloride 20 Meq/100 Ml Ivpremix*) 20 meq in 100 mls @ 50 mls/hr IV Q2H [facility] Stop: 05/14/18 13:59 Insulin Human Lispro (Humalog*) 0 units SUBCUT AC [facility]; Protocol Last Admin: 05/13/18 17:55 Dose: 3 units Lamotrigine (Lamictal Tab(*)) 100 mg PO BID [facility] Last Admin: 05/14/18 08:04 Dose: 100 mg Levothyroxine Sodium (Synthroid Tab*) 75 mcg PO DAILY@0600 [facility] Last Admin: 05/14/18 06:39 Dose: 75 mcg Morphine Sulfate (Ms Contin(*)) 15 mg PO BID [facility] Last Admin: 05/13/18 19:39 Dose: 15 mg Multivitamins/Minerals (Theragran/Minerals Tab*) 1 tab PO DAILY [facility] Last Admin: 05/14/18 08:04 Dose: 1 tab Omeprazole (Prilosec Cap*) 20 mg PO DAILY@0600 [facility] Last Admin: 05/14/18 06:39 Dose: 20 mg Ondansetron HCl (Zofran Tab*) 4 mg PO Q6HR PRN PRN Reason: NAUSEA Oxycodone HCl (Roxycodone Tab*) 10 mg PO Q4HR PRN PRN Reason: PAIN - BREAKTHROUGH Last Admin: 05/14/18 04:17 Dose: 5 mg Polyethylene Glycol/Electrolytes (Miralax*) 17 gm PO Q12H [facility] Last Admin: 05/13/18 23:24 Dose: 17 gm Prochlorperazine (Compazine Tab*) 10 mg PO Q6HR PRN PRN Reason: NAUSEA/VOMITING Senna (Senokot Tab*) 1 tab PO BID [facility] Last Admin: 05/14/18 08:04 Dose: 1 tab Vital Signs: Temp Pulse Resp BP Pulse Ox 98.3 F 88 18 134/46 94 05/14/18 07:30 05/14/18 07:30 05/14/18 07:30 05/14/18 07:30 05/14/18 07:30 Exam: Gen: Chronically ill appearing 67 yo male in NAD HEENT: mildly dry MM CV: RRR, no m/r/g Resp: lungs CTA, no w/c/r Abd: soft, distended, mildly TTP, clean dressing over PleurX site Ext: anasarca, diffuse pitting edema Skin: faint erythema of R side of abdomen Assessment: 67 yo M w mild CRI, DM, and newly diagnosed pancreatic cancer c/b malignant R sided pleural effusion admitted with concern for cellulitis over his abdomen ( at site of pleurex catheter), accumulating SQ fluid and worsening renal function and anemia. Plan: 1. Cellulitis - cont ceftriaxone (PEN allergic) - afebrile 2. R pleural effusion with PleurX catheter: - PleurX removed 05/12/[address] Gaston with concern for extravasation of pleural fluid into the subcutaneous space - no evidence of recurrent effusion at this time 3. Acute on chronic renal insufficiency - Dr Aiken's consultation greatly appreciated - appears prerenal with gross intravascular depletion and 3rd spacing secondary to hypoalbuminemia - trajectory of Cr limb appears to have slowed today - albumin infusion started yesterday - start Lasix drip - replete potassium 4. Anemia - no obvious signs of bleeding, but he is on dual antiplatelet therapy - transfuse 1U PRBCs today (interrupt albumin for this) - waiting on stool for occult blood testing - hold Brilinta and cont ASA for now 5. hypoalbuminemia, prealbumin 3. severe protein calorie malnutrition 6. constipation: - likely narcotic induced - added miralax - suppository today 7.pain control: - improving, using fewer narcotics today DNR heparin sc q12
[2018-05-14] MEDS: Insulin LISPRO* 1 UNITS UNIT SUBCUT SCH ×3 (11:02→17:43)
[2018-05-14] MEDS: KCL 20 MEQ/100 ML IVPREMIX* 20 MEQ/100 ML BAG IV SCH ×2 (11:04→13:53)
[2018-05-14] MEDS: Potassium Chlor TAB* 20 MEQ TAB.ER PO SCH ×3 (11:04→21:05)
[2018-05-14] MEDS: Furosemide IV* 100 MG in NS 0.9% 100 ML* 90 ML IV SCH ×2 (11:05→20:59)
[2018-05-14] MEDS: Polyethylene Glycol 3350* 17 GM PACKET PO SCH ×2 (11:21→21:18)
[2018-05-14] MEDS: Morphine TAB Extended Release (*) 15 MG TAB.ER PO SCH ×2 (11:29→21:03)
[2018-05-14] MEDS: cefTRIAXone(*) 2 GM in NS 0.9% 100 ML* 100 ML IVPB SCH (14:53)
--- NOTE | 2018-05-14 19:53 | PN ---
PROGRESS NOTE: DATE OF SERVICE: 05/14/18 HISTORY OF PRESENT ILLNESS: Mr. Baugh is feeling a little better. Today, he says it is more easy for him to breathe. He did have an episode of shortness of breath last night and he coughed up some thick mucus. His breathing was much better after that. He still notes pedal edema but thinks his chest is less swollen. The chest is clear. The heart revealed a regular rhythm without murmurs. The abdomen is still distended with a positive fluid wave. He is afebrile. Blood pressure is 134/46. He has tolerated the albumin infusion fairly well, he is probably going to need to be transfused. His hemoglobin is down to 6.7, sodium of 131, potassium 2.9, total CO2 21, chloride 94, BUN 50 with a creatinine of 4.41. IMPRESSION: Acute prerenal insufficiency. We are going to continue on the albumin infusion together with the furosemide. He is going to receive some supplemental potassium. Dr. Villegas will be making decision about transfusing. [id number]/[facility] #: [id number] [place]
[2018-05-15] MEDS: oxyCODONE TAB* 5 MG TAB PO PRN ×4 (01:06→20:11)
[2018-05-15] MEDS: Albumin Human 25%* 25 GM/100 ML BTL IV SCH ×4 (01:59→16:37)
[2018-05-15] MEDS: Omeprazole CAP* 20 MG PO SCH (05:38)
[2018-05-15] MEDS: Levothyroxine TAB* 75 MCG TAB PO SCH (05:38)
[2018-05-15] MEDS: Heparin VIAL(*) 5000 UNITS/ML VIAL (FIVE THOUSAND) SUBCUT SCH ×2 (05:39→19:44)
[2018-05-15] MEDS: Furosemide IV* 100 MG in NS 0.9% 100 ML* 90 ML IV SCH ×3 (08:37→20:02)
[2018-05-15] MEDS ORDERED: Furosemide IV* 10 MG/ML 10 ML VIAL (100 MG) ONE ×2 (08:43→19:35)
[2018-05-15] MEDS: Docusate CAP* 100 MG PO SCH ×2 (08:49→21:18)
[2018-05-15] MEDS: Potassium Chlor TAB* 20 MEQ TAB.ER PO SCH ×3 (08:50→21:19)
[2018-05-15] MEDS: Morphine TAB Extended Release (*) 15 MG TAB.ER PO SCH ×2 (08:50→21:19)
[2018-05-15] MEDS: Aspirin EC TAB* 81 MG TAB.EC PO SCH (08:51)
[2018-05-15] MEDS: Multivitamins/Minerals TAB PO SCH (08:51)
[2018-05-15] MEDS: Senna TAB PO SCH ×2 (08:52→21:19)
[2018-05-15] MEDS: Insulin LISPRO* 1 UNITS UNIT SUBCUT SCH ×3 (08:52→18:18)
[2018-05-15] MEDS: lamoTRIgine TAB(*) 100 MG PO SCH ×2 (08:52→21:19)
[2018-05-15] MEDS: BuPROPion XL* 300 MG TAB.XL PO SCH (10:11)
[2018-05-15 10:19] LABS: Hematocrit 21 % (42-52); Hemoglobin 7.2 g/dl (14.0-18.0); Mean Corpuscular HGB Conc 34 g/dl (31-36); Mean Corpuscular Hemoglobin 25 pg (27-31); Mean Corpuscular Volume 74 fL (80-94); Mean Platelet Volume 7.5 um3 (7.4-10.4); Platelet Count 190 10^3/ul (150-450); Red Blood Count 2.89 10^6/ul (4.00-5.40); Red Cell Distribution Width 22 % (10.5-15); White Blood Count 9.9 10^3/ul (3.5-10.8)
[2018-05-15 10:32] LABS: EGFR Non-African American 13.4 (>60)
[2018-05-15 11:13] LABS: ABS Basophils 0 10^3/ul (0-0.2); ABS Eosinophils 0 10^3/ul (0-0.6); ABS Lymphocytes 0.8 10^3/ul (1.0-4.8); ABS Monocytes 0.3 10^3/ul (0-0.8); ABS Neutrophils 8.8 10^3/ul (1.5-7.7); ABS Nucleated RBC 0.1 10^3/ul; Eosinophil % 0.2 % (0-6); Lymphocyte % 8.4 % (25-47); Nucleated Red Blood Cells % 0.7
--- NOTE | 2018-05-15 11:54 | PN ---
Progress Note - Progress Note Date of Service: 05/15/18 SOAP: Subjective: [Reports that he is feeling "really good" this morning. He feels that the edema in his abdomen is improving. Appetite is improving. Successful BM yesterday. Good urine output.] Objective: [ Laboratory Results - last 24 hr 05/13/18 05/13/18 05/14/18 15:27 17:00 09:27 WBC RBC Hgb Hct MCV MCH MCHC RDW Plt Count MPV Neut % (Auto) Lymph % (Auto) [place] % (Auto) Eos % (Auto) Baso % (Auto) Absolute Neuts (auto) Absolute Lymphs (auto) Absolute Monos (auto) Absolute Eos (auto) Absolute Basos (auto) Absolute Nucleated RBC Nucleated RBC % Sodium Potassium Chloride Carbon Dioxide Anion Gap BUN Creatinine Est GFR ( Amer) Est GFR (Non-Af Amer) BUN/Creatinine Ratio Glucose POC Glucose (mg/dL) Calcium Magnesium Total Bilirubin AST ALT Alkaline Phosphatase Total Protein Albumin Globulin Albumin/Globulin Ratio Hepatitis B Antibody Not immune A Hep Bs Antigen Nonreactive Hep Bs Antibody, Quant < 3.10 Hepatitis C Antibody Nonreactive TB (QFT) Gold In Tube TNP TB Test (QFT) Nil TNP TB Test Mitogen - Nil TNP TB Test Antigen - Nil TNP Blood Type A Positive Antibody Screen Negative Crossmatch See Detail 05/14/18 05/14/18 05/14/18 12:07 16:42 21:10 WBC RBC Hgb Hct MCV MCH MCHC RDW Plt Count MPV Neut % (Auto) Lymph % (Auto) [place] % (Auto) Eos % (Auto) Baso % (Auto) Absolute Neuts (auto) Absolute Lymphs (auto) Absolute Monos (auto) Absolute Eos (auto) Absolute Basos (auto) Absolute Nucleated RBC Nucleated RBC % Sodium Potassium Chloride Carbon Dioxide Anion Gap BUN Creatinine Est GFR ( Amer) Est GFR (Non-Af Amer) BUN/Creatinine Ratio Glucose POC Glucose (mg/dL) 243 H 114 H 224 H Calcium Magnesium Total Bilirubin AST ALT Alkaline Phosphatase Total Protein Albumin Globulin Albumin/Globulin Ratio Hepatitis B Antibody Hep Bs Antigen Hep Bs Antibody, Quant Hepatitis C Antibody TB (QFT) Gold In Tube TB Test (QFT) Nil TB Test Mitogen - Nil TB Test Antigen - Nil Blood Type Antibody Screen Crossmatch 05/15/18 05/15/18 05/15/18 07:29 10:10 10:10 WBC 9.9 RBC 2.89 L Hgb 7.2 L Hct 21 L MCV 74 L MCH 25 L MCHC 34 RDW 22 H Plt Count 190 MPV 7.5 Neut % (Auto) 88.1 H Lymph % (Auto) 8.4 L [place] % (Auto) 3.1 Eos % (Auto) 0.2 Baso % (Auto) 0.2 Absolute Neuts (auto) 8.8 H Absolute Lymphs (auto) 0.8 L Absolute Monos (auto) 0.3 Absolute Eos (auto) 0 Absolute Basos (auto) 0 Absolute Nucleated RBC 0.1 Nucleated RBC % 0.7 Sodium 134 L Potassium 3.0 L Chloride 99 L Carbon Dioxide 23 Anion Gap 12 H BUN 55 H Creatinine 4.42 H Est GFR ( Amer) 16.2 Est GFR (Non-Af Amer) 13.4 BUN/Creatinine Ratio 12.4 Glucose 208 H POC Glucose (mg/dL) 225 H Calcium 8.4 L Magnesium 2.1 Total Bilirubin 0.40 AST 24 ALT 15 Alkaline Phosphatase 102 Total Protein 5.4 L Albumin 2.9 L Globulin 2.5 Albumin/Globulin Ratio 1.2 Hepatitis B Antibody Hep Bs Antigen Hep Bs Antibody, Quant Hepatitis C Antibody TB (QFT) Gold In Tube TB Test (QFT) Nil TB Test Mitogen - Nil TB Test Antigen - Nil Blood Type Antibody Screen Crossmatch Aspirin (Aspirin Ec Tab*) 81 mg PO DAILY [facility] Last Admin: 05/15/18 08:51 Dose: 81 mg Bupropion HCl (Bupropion Xl*) 300 mg PO DAILY [facility] Last Admin: 05/15/18 10:11 Dose: 300 mg Dextrose (D50w Syringe 50 Ml*) 12.5 gm IV PUSH .FOR FS < 60 - SS PRN PRN Reason: FS < 60 Docusate Sodium (Colace Cap*) 200 mg PO BID [facility] Last Admin: 05/15/18 08:49 Dose: 200 mg Heparin Sodium (Porcine) (Heparin Flush Port (Ivad)) 5 ml FLUSH DAILY [facility]; Protocol Last Admin: 05/15/18 09:17 Dose: Not Given Heparin Sodium (Porcine) (Heparin Vial(*)) 5,000 units SUBCUT Q12H [facility] Last Admin: 05/15/18 05:39 Dose: 5,000 units Ceftriaxone Sodium 2 gm/ (Sodium Chloride) 100 mls @ 200 mls/hr IVPB Q24H [facility] Last Admin: 05/14/18 14:53 Dose: 200 mls/hr Albumin Human (Albumin Human 25%*) 25 gm in 100 mls @ 12 mls/hr IV 0100,0900, 1700 [facility] Last Admin: 05/15/18 10:14 Dose: Not Given Furosemide 100 mg/ Sodium (Chloride) 100 mls @ 20 mls/hr IV Q10H [facility] Last Admin: 05/15/18 08:54 Dose: 20 mls/hr Insulin Human Lispro (Humalog*) 0 units SUBCUT [facility]; Protocol Last Admin: 05/15/18 08:52 Dose: 6 units Lamotrigine (Lamictal Tab(*)) 100 mg PO BID [facility] Last Admin: 05/15/18 08:52 Dose: 100 mg Levothyroxine Sodium (Synthroid Tab*) 75 mcg PO DAILY@0600 [facility] Last Admin: 05/15/18 05:38 Dose: 75 mcg Morphine Sulfate (Ms Contin(*)) 15 mg PO BID [facility] Last Admin: 05/15/18 08:50 Dose: 15 mg Multivitamins/Minerals (Theragran/Minerals Tab*) 1 tab PO DAILY [facility] Last Admin: 05/15/18 08:51 Dose: 1 tab Omeprazole (Prilosec Cap*) 20 mg PO DAILY@0600 [facility] Last Admin: 05/15/18 05:38 Dose: 20 mg Ondansetron HCl (Zofran Tab*) 4 mg PO Q6HR PRN PRN Reason: NAUSEA Oxycodone HCl (Roxycodone Tab*) 10 mg PO Q4HR PRN PRN Reason: PAIN - BREAKTHROUGH Last Admin: 05/15/18 05:36 Dose: 10 mg Polyethylene Glycol/Electrolytes (Miralax*) 17 gm PO Q12H [facility] Last Admin: 05/14/18 21:18 Dose: 17 gm Potassium Chloride (Klor Con Er Tab*) 20 meq PO TID [facility] Last Admin: 05/15/18 08:50 Dose: 20 meq Prochlorperazine (Compazine Tab*) 10 mg PO Q6HR PRN PRN Reason: NAUSEA/VOMITING Senna (Senokot Tab*) 1 tab PO BID [facility] Last Admin: 05/15/18 08:52 Dose: 1 tab Vital Signs: Temp Pulse Resp BP Pulse Ox 98.4 F 89 20 138/52 93 05/15/18 07:18 05/15/18 07:18 05/15/18 10:47 05/15/18 07:18 05/15/18 07:18 Exam: Gen: Chronically ill appearing 67 yo male in NAD, improved affect and accompanied by his HEENT: MMM CV: RRR, no m/r/g Resp: lungs CTA, no w/c/r Abd: soft, distended, mildly TTP, clean dressing over former PleurX site Ext: anasarca, diffuse pitting edema, improved Skin: faint erythema of R side of abdomen, somewhat receded Assessment: 67 yo M w mild CRI, DM, and newly diagnosed pancreatic cancer c/b malignant R sided pleural effusion admitted with concern for cellulitis over his abdomen ( at site of pleurex catheter), accumulating SQ fluid and worsening renal function and anemia. Plan: 1. Cellulitis - cont ceftriaxone (PEN allergic) - afebrile - improving erythema 2. R pleural effusion with PleurX catheter: - PleurX removed 05/12/[address] Gaston with concern for extravasation of pleural fluid into the subcutaneous space - no evidence of recurrent effusion at this time 3. Acute on chronic renal insufficiency - improving, Cr stable - Dr Aiken's consultation greatly appreciated - appears prerenal with gross intravascular depletion and 3rd spacing secondary to hypoalbuminemia - cont albumin infusion - cont Lasix drip, increase rate to 20mg/h - cont to replete potassium and monitor Mg - apply compression to lower extremities with EMANI wraps and recommend elevation of legs 4. Anemia - no obvious signs of bleeding, but he is on dual antiplatelet therapy - transfused 1U PRBCs yesterday - stool negative for blood - resume Brilinta and cont ASA for now - cont to monitor Hgb and transfuse for <7 g/dl 5. hypoalbuminemia, prealbumin 3. severe protein calorie malnutrition 6. constipation: - likely narcotic induced - improved, cont laxatives 7.pain control: - improving, using fewer narcotics DNR heparin sc q12]
[2018-05-15] MEDS: Polyethylene Glycol 3350* 17 GM PACKET PO SCH ×2 (12:05→23:58)
[2018-05-15] MEDS: KCL 20 MEQ/100 ML IVPREMIX* 20 MEQ/100 ML BAG IV SCH ×2 (14:04→16:35)
[2018-05-15] MEDS: cefTRIAXone(*) 2 GM in NS 0.9% 100 ML* 100 ML IVPB SCH (14:22)
[2018-05-15] MEDS ORDERED: NS 0.9% 100 ML* 100 ML ONE (19:37)
[2018-05-15] MEDS: Insulin GLARGINE(*) 1 UNITS UNIT SUBCUT SCH (21:18)
[2018-05-15] MEDS: Ticagrelor* 90 MG TAB PO SCH (21:19)
[2018-05-16] MEDS: Albumin Human 25%* 25 GM/100 ML BTL IV SCH (00:51)
[2018-05-16] MEDS: Levothyroxine TAB* 75 MCG TAB PO SCH (05:19)
[2018-05-16] MEDS: Omeprazole CAP* 20 MG PO SCH (05:19)
[2018-05-16] MEDS: oxyCODONE TAB* 5 MG TAB PO PRN ×3 (05:31→17:34)
[2018-05-16 05:41] LABS: ABS Basophils 0 10^3/ul (0-0.2); ABS Eosinophils 0 10^3/ul (0-0.6); ABS Monocytes 0.6 10^3/ul (0-0.8); ABS Neutrophils 9.3 10^3/ul (1.5-7.7); ABS Nucleated RBC 0.1 10^3/ul; Eosinophil % 0.3 % (0-6); Hematocrit 21 % (42-52); Hemoglobin 7.2 g/dl (14.0-18.0); Mean Corpuscular HGB Conc 34 g/dl (31-36); Mean Corpuscular Hemoglobin 25 pg (27-31); Mean Corpuscular Volume 74 fL (80-94); Mean Platelet Volume 7.6 um3 (7.4-10.4); Nucleated Red Blood Cells % 0.7; Platelet Count 207 10^3/ul (150-450); Red Blood Count 2.86 10^6/ul (4.00-5.40); Red Cell Distribution Width 22 % (10.5-15); White Blood Count 10.9 10^3/ul (3.5-10.8)
[2018-05-16] MEDS: Furosemide IV* 100 MG in NS 0.9% 100 ML* 90 ML IV SCH ×2 (05:51→14:57)
[2018-05-16 06:01] LABS: EGFR Non-African American 15.2 (>60)
[2018-05-16] MEDS: Heparin VIAL(*) 5000 UNITS/ML VIAL (FIVE THOUSAND) SUBCUT SCH ×2 (08:41→20:57)
[2018-05-16] MEDS: Docusate CAP* 100 MG PO SCH ×2 (08:41→20:56)
[2018-05-16] MEDS: Morphine TAB Extended Release (*) 15 MG TAB.ER PO SCH ×2 (08:42→20:56)
[2018-05-16] MEDS: Multivitamins/Minerals TAB PO SCH (08:42)
[2018-05-16] MEDS: lamoTRIgine TAB(*) 100 MG PO SCH ×2 (08:42→20:57)
[2018-05-16] MEDS: Ticagrelor* 90 MG TAB PO SCH ×2 (08:42→20:57)
[2018-05-16] MEDS: BuPROPion XL* 300 MG TAB.XL PO SCH (08:42)
[2018-05-16] MEDS: Senna TAB PO SCH ×2 (08:42→20:57)
[2018-05-16] MEDS: Aspirin EC TAB* 81 MG TAB.EC PO SCH (08:42)
[2018-05-16] MEDS: Insulin LISPRO* 1 UNITS UNIT SUBCUT SCH ×3 (08:42→17:34)
[2018-05-16] MEDS: Potassium Chlor TAB* 20 MEQ TAB.ER PO SCH ×3 (08:42→20:56)
[2018-05-16] MEDS: Polyethylene Glycol 3350* 17 GM PACKET PO SCH ×2 (12:06→22:45)
[2018-05-16] MEDS: cefTRIAXone(*) 2 GM in NS 0.9% 100 ML* 100 ML IVPB SCH (14:15)
--- NOTE | 2018-05-16 14:48 | PN ---
AMENDED REPORT NOW INCLUDES DATE OF SERVICE PROGRESS NOTE: DATE OF SERVICE: 05/16/18 HISTORY OF PRESENT ILLNESS: Mr. Baugh is feeling much better than he had. He has now want a Lasix infusion 20 mg an hour. He is diuresing well. His abdominal distention is less. His leg edema is less. He is eating well. He is breathing well. His physical examination is significant, but he still has decreased breath sounds on the right hand side. His blood pressure is 145/49. He does not have orthostatic dizziness. Pulse is 92. He still has reflex edema. His white count is 10.9 with hemoglobin of 7.2. His sodium is 135, potassium is 3.5, total CO2 is 24, chloride is 99, BUN 59 with a creatinine of 3.95. IMPRESSION: Acute renal insufficiency with anasarca. He is going to drop his serum creatinine. I am very pleased with this and we will actually bring his weight down successfully on the current regimen. His albumin is 3 and I have stopped his albumin infusion. It may be necessary to go back to that at some point in the future. [id number]/[facility] #: [id number] MTDD
[2018-05-16] MEDS: Insulin GLARGINE(*) 1 UNITS UNIT SUBCUT SCH (20:57)
[2018-05-17] MEDS: Furosemide IV* 100 MG in NS 0.9% 100 ML* 90 ML IV SCH ×3 (00:35→21:40)
[2018-05-17] MEDS: Levothyroxine TAB* 75 MCG TAB PO SCH (05:36)
[2018-05-17] MEDS: Omeprazole CAP* 20 MG PO SCH (05:36)
[2018-05-17 06:03] LABS: Hematocrit 22 % (42-52); Hemoglobin 7.6 g/dl (14.0-18.0); Mean Corpuscular HGB Conc 34 g/dl (31-36); Mean Corpuscular Hemoglobin 26 pg (27-31); Mean Corpuscular Volume 75 fL (80-94); Mean Platelet Volume 7.8 um3 (7.4-10.4); Platelet Count 249 10^3/ul (150-450); Red Blood Count 2.97 10^6/ul (4.00-5.40); Red Cell Distribution Width 22 % (10.5-15)
[2018-05-17 06:18] LABS: EGFR Non-African American 15.8 (>60)
[2018-05-17 06:20] LABS: ABS Basophils 0 10^3/ul (0-0.2); ABS Eosinophils 0 10^3/ul (0-0.6); ABS Monocytes 0.8 10^3/ul (0-0.8); ABS Neutrophils 11.2 10^3/ul (1.5-7.7); ABS Nucleated RBC 0 10^3/ul
[2018-05-17 06:46] LABS: Eosinophil % 0.2 % (0-6); Lymphocyte % 7.8 % (25-47); Nucleated Red Blood Cells % 0.3
[2018-05-17] MEDS: Heparin VIAL(*) 5000 UNITS/ML VIAL (FIVE THOUSAND) SUBCUT SCH ×2 (08:24→21:19)
[2018-05-17] MEDS: Insulin LISPRO* 1 UNITS UNIT SUBCUT SCH ×3 (08:24→17:14)
[2018-05-17] MEDS: Multivitamins/Minerals TAB PO SCH (08:25)
[2018-05-17] MEDS: lamoTRIgine TAB(*) 100 MG PO SCH ×2 (08:25→21:21)
[2018-05-17] MEDS: Aspirin EC TAB* 81 MG TAB.EC PO SCH (08:25)
[2018-05-17] MEDS: BuPROPion XL* 300 MG TAB.XL PO SCH (08:25)
[2018-05-17] MEDS: Docusate CAP* 100 MG PO SCH ×2 (08:25→21:21)
[2018-05-17] MEDS: Potassium Chlor TAB* 20 MEQ TAB.ER PO SCH ×3 (08:25→21:19)
[2018-05-17] MEDS: Ticagrelor* 90 MG TAB PO SCH ×2 (08:25→21:20)
[2018-05-17] MEDS: Senna TAB PO SCH ×2 (08:25→21:21)
[2018-05-17] MEDS: Morphine TAB Extended Release (*) 15 MG TAB.ER PO SCH ×2 (08:25→21:20)
[2018-05-17] MEDS: Polyethylene Glycol 3350* 17 GM PACKET PO SCH ×2 (10:41→21:21)
[2018-05-17] MEDS: oxyCODONE TAB* 5 MG TAB PO PRN ×2 (10:42→17:14)
[2018-05-17] MEDS: cefTRIAXone(*) 2 GM in NS 0.9% 100 ML* 100 ML IVPB SCH (14:45)
[2018-05-17] MEDS: Insulin GLARGINE(*) 1 UNITS UNIT SUBCUT SCH (21:40)
[2018-05-18] MEDS: Omeprazole CAP* 20 MG PO SCH (05:37)
[2018-05-18] MEDS: Levothyroxine TAB* 75 MCG TAB PO SCH (05:37)
[2018-05-18 06:00] LABS: Hematocrit 24 % (42-52); Hemoglobin 7.8 g/dl (14.0-18.0); Mean Corpuscular HGB Conc 32 g/dl (31-36); Mean Corpuscular Hemoglobin 24 pg (27-31); Mean Corpuscular Volume 76 fL (80-94); Red Cell Distribution Width 22 % (10.5-15); White Blood Count 13.4 10^3/ul (3.5-10.8)
[2018-05-18] MEDS: Furosemide IV* 100 MG in NS 0.9% 100 ML* 90 ML IV SCH ×2 (06:15→17:09)
[2018-05-18 06:19] LABS: EGFR Non-African American 16.3 (>60)
[2018-05-18 06:28] LABS: ABS Basophils 0 10^3/ul (0-0.2); ABS Eosinophils 0.1 10^3/ul (0-0.6); ABS Lymphocytes 1.3 10^3/ul (1.0-4.8); ABS Monocytes 0.9 10^3/ul (0-0.8); ABS Neutrophils 11.1 10^3/ul (1.5-7.7); ABS Nucleated RBC 0.1 10^3/ul
[2018-05-18 06:59] LABS: ABS Basophils 0 10^3/ul (0-0.2); ABS Neutrophils 11.3 10^3/ul (1.5-7.7); Monocytes % 2 % (0-7)
[2018-05-18 07:02] LABS: Platelet Morphology Clumped
[2018-05-18] MEDS: Insulin LISPRO* 1 UNITS UNIT SUBCUT SCH ×3 (09:08→17:11)
[2018-05-18] MEDS: Heparin VIAL(*) 5000 UNITS/ML VIAL (FIVE THOUSAND) SUBCUT SCH ×2 (09:11→20:28)
[2018-05-18] MEDS: Multivitamins/Minerals TAB PO SCH (09:11)
[2018-05-18] MEDS: Docusate CAP* 100 MG PO SCH ×2 (09:12→20:27)
[2018-05-18] MEDS: Morphine TAB Extended Release (*) 15 MG TAB.ER PO SCH (09:13)
[2018-05-18] MEDS: Senna TAB PO SCH ×2 (09:14→20:27)
[2018-05-18] MEDS: lamoTRIgine TAB(*) 100 MG PO SCH ×2 (09:15→20:28)
[2018-05-18] MEDS: Ticagrelor* 90 MG TAB PO SCH ×2 (09:15→20:28)
[2018-05-18] MEDS: Aspirin EC TAB* 81 MG TAB.EC PO SCH (09:16)
[2018-05-18] MEDS: BuPROPion XL* 300 MG TAB.XL PO SCH (09:16)
[2018-05-18] MEDS: Potassium Chlor TAB* 20 MEQ TAB.ER PO SCH ×3 (09:18→20:27)
[2018-05-18] MEDS: Polyethylene Glycol 3350* 17 GM PACKET PO SCH ×2 (11:37→22:34)
[2018-05-18] MEDS: oxyCODONE TAB* 5 MG TAB PO PRN ×2 (11:52→17:10)
[2018-05-18] MEDS ORDERED: CEFTRIAXONE IVPB SCH (14:00)
[2018-05-18] MEDS ORDERED: NS 0.9% IVPB SCH (14:00)
[2018-05-18] MEDS: Insulin GLARGINE(*) 1 UNITS UNIT SUBCUT SCH (20:29)
[2018-05-19] MEDS: oxyCODONE TAB* 5 MG TAB PO PRN ×4 (02:10→22:17)
[2018-05-19] MEDS: Furosemide IV* 100 MG in NS 0.9% 100 ML* 90 ML IV SCH ×3 (02:11→22:47)
[2018-05-19] MEDS: Levothyroxine TAB* 75 MCG TAB PO SCH (05:11)
[2018-05-19] MEDS: Omeprazole CAP* 20 MG PO SCH (05:11)
[2018-05-19] MEDS: Docusate CAP* 100 MG PO SCH ×2 (07:47→22:20)
[2018-05-19] MEDS: Senna TAB PO SCH ×2 (07:47→22:18)
[2018-05-19] MEDS: Insulin LISPRO* 1 UNITS UNIT SUBCUT SCH ×3 (08:13→17:17)
[2018-05-19] MEDS: Aspirin EC TAB* 81 MG TAB.EC PO SCH (08:14)
[2018-05-19] MEDS: Heparin VIAL(*) 5000 UNITS/ML VIAL (FIVE THOUSAND) SUBCUT SCH ×2 (08:14→22:21)
[2018-05-19] MEDS: Potassium Chlor TAB* 20 MEQ TAB.ER PO SCH ×3 (08:14→22:19)
[2018-05-19] MEDS: Ticagrelor* 90 MG TAB PO SCH ×2 (08:14→22:20)
[2018-05-19] MEDS: Multivitamins/Minerals TAB PO SCH (08:14)
[2018-05-19] MEDS: BuPROPion XL* 300 MG TAB.XL PO SCH (08:14)
[2018-05-19] MEDS: lamoTRIgine TAB(*) 100 MG PO SCH ×2 (08:14→22:20)
[2018-05-19 10:44] LABS: Hematocrit 23 % (42-52); Hemoglobin 7.4 g/dl (14.0-18.0); Mean Corpuscular HGB Conc 32 g/dl (31-36); Mean Corpuscular Hemoglobin 24 pg (27-31); Mean Corpuscular Volume 76 fL (80-94); Mean Platelet Volume 7.7 um3 (7.4-10.4); Platelet Count 352 10^3/ul (150-450); Red Blood Count 3.05 10^6/ul (4.00-5.40); Red Cell Distribution Width 23 % (10.5-15); White Blood Count 11.5 10^3/ul (3.5-10.8)
[2018-05-19 10:57] LABS: EGFR Non-African American 20.4 (>60)
[2018-05-19] MEDS: Polyethylene Glycol 3350* 17 GM PACKET PO SCH ×2 (11:00→22:22)
[2018-05-19 11:09] LABS: ABS Basophils 0.1 10^3/ul (0-0.2); ABS Eosinophils 0 10^3/ul (0-0.6); ABS Lymphocytes 1.3 10^3/ul (1.0-4.8); ABS Monocytes 0.8 10^3/ul (0-0.8); ABS Neutrophils 9.3 10^3/ul (1.5-7.7)
[2018-05-19 11:12] LABS: ABS Basophils 0 10^3/ul (0-0.2); ABS Neutrophils 9.5 10^3/ul (1.5-7.7); Monocytes % 7 % (0-7)
--- NOTE | 2018-05-19 11:22 | PN ---
Progress Note - Progress Note Date of Service: 05/19/18 SOAP: Subjective: []Feeling great today. Has some ups and downs but feels like he is doing better. Right lower abd. is still a little red and very firm. Peeing frequently and fees less full, however ankles and feet still sore from stiffness. Pain hasn't been well controlled with MS Contin 10 mg BID and oxycodone 10 mg q4h PRN, running 7/10 a lot of the time. Medications: Aspirin (Aspirin Ec Tab*) 81 mg PO DAILY [facility] Last Admin: 05/19/18 08:14 Dose: 81 mg Bupropion HCl (Bupropion Xl*) 300 mg PO DAILY [facility] Last Admin: 05/19/18 08:14 Dose: 300 mg Dextrose (D50w Syringe 50 Ml*) 12.5 gm IV PUSH .FOR FS < 60 - SS PRN PRN Reason: FS < 60 Docusate Sodium (Colace Cap*) 200 mg PO BID [facility] Last Admin: 05/19/18 07:47 Dose: Not Given Heparin Sodium (Porcine) (Heparin Vial(*)) 5,000 units SUBCUT Q12H [facility] Last Admin: 05/19/18 08:14 Dose: 5,000 units Heparin Sodium (Porcine) (Heparin Flush Port (Ivad)) 5 ml FLUSH DAILY [facility]; Protocol Furosemide 100 mg/ Sodium (Chloride) 100 mls @ 20 mls/hr IV Q10H [facility] Last Admin: 05/19/18 02:11 Dose: 20 mls/hr Ceftriaxone Sodium 2 gm/ (Sodium Chloride) 50 mls @ 100 mls/hr IVPB Q24H [facility] Last Admin: 05/18/18 14:24 Dose: 100 mls/hr Insulin Glargine (Lantus(*)) 15 units SUBCUT Q24H [facility] Last Admin: 05/18/18 20:29 Dose: 15 unit Insulin Human Lispro (Humalog*) 0 units SUBCUT [facility]; Protocol Last Admin: 05/19/18 08:13 Dose: 6 units Lamotrigine (Lamictal Tab(*)) 100 mg PO BID [facility] Last Admin: 05/19/18 08:14 Dose: 100 mg Levothyroxine Sodium (Synthroid Tab*) 75 mcg PO DAILY@0600 [facility] Last Admin: 05/19/18 05:11 Dose: 75 mcg Multivitamins/Minerals (Theragran/Minerals Tab*) 1 tab PO DAILY [facility] Last Admin: 05/19/18 08:14 Dose: 1 tab Omeprazole (Prilosec Cap*) 20 mg PO DAILY@0600 [facility] Last Admin: 05/19/18 05:11 Dose: 20 mg Ondansetron HCl (Zofran Tab*) 4 mg PO Q6HR PRN PRN Reason: NAUSEA Oxycodone HCl (Roxycodone Tab*) 10 mg PO Q4HR PRN PRN Reason: PAIN - BREAKTHROUGH Last Admin: 05/19/18 08:12 Dose: 10 mg Polyethylene Glycol/Electrolytes (Miralax*) 17 gm PO Q12H [facility] Last Admin: 05/19/18 11:00 Dose: Not Given Potassium Chloride (Klor Con Er Tab*) 40 meq PO TID [facility] Last Admin: 05/19/18 08:14 Dose: 40 meq Prochlorperazine (Compazine Tab*) 10 mg PO Q6HR PRN PRN Reason: NAUSEA/VOMITING Senna (Senokot Tab*) 1 tab PO BID [facility] Last Admin: 05/19/18 07:47 Dose: Not Given Ticagrelor (Brilinta*) 90 mg PO BID [facility] Last Admin: 05/19/18 08:14 Dose: 90 mg Objective: [] Vital Signs Temp Pulse Resp BP Pulse Ox 97.5 F 86 16 129/60 98 05/19/18 07:59 05/19/18 08:00 05/19/18 10:59 05/19/18 07:59 05/19/18 08:21 A&Ox3, EOMI, PERALES HRR, S1S2 LS clear, resp. even and non-labored +BS, abd. soft and non-tender RLQ skin still red, though not hot, firm RCW prior pleurx site dressing benign Laboratory Results - last 24 hr 05/19/18 05/19/18 05/19/18 08:06 10:30 10:30 WBC 11.5 H RBC 3.05 L Hgb 7.4 L Hct 23 L MCV 76 L MCH 24 L MCHC 32 RDW 23 H Plt Count 352 MPV 7.7 Neut % (Auto) Not Reportable Lymph % (Auto) Not Reportable [place] % (Auto) Not Reportable Eos % (Auto) Not Reportable Baso % (Auto) Not Reportable Absolute Neuts (auto) 9.3 H Absolute Lymphs (auto) 1.3 Absolute Monos (auto) 0.8 Absolute Eos (auto) 0 Absolute Basos (auto) 0.1 Absolute Nucleated RBC Not Reportable Immature Gran % 3 Neutrophils % 83 Band Neutrophils % 1 Lymphocytes % 7 L Monocytes % 7 Eosinophils % 0 Basophils % 0 Metamyelocytes % 2 Nucleated RBC % Not Reportable Abs Neuts (Manual) 9.5 H Abs Lymphs (Manual) 0.8 L Abs Monocytes (Manual) 0.8 Absolute Eos (Manual) 0 Abs Basophils (Manual) 0 Nucleated RBCs/100 WBC 0 Normal RBC Morphology Not Reportable Polychromasia 1+ Anisocytosis 1+ Sodium 136 Potassium 3.7 Chloride 98 L Carbon Dioxide 28 Anion Gap 10 BUN 70 H Creatinine 3.06 H Est GFR ( Amer) 24.7 Est GFR (Non-Af Amer) 20.4 BUN/Creatinine Ratio 22.9 H Glucose 213 H POC Glucose (mg/dL) 233 H Calcium 8.2 L Total Bilirubin 0.30 AST 103 H ALT 60 H Alkaline Phosphatase 119 H Total Protein 5.3 L Albumin 2.7 L Globulin 2.6 Albumin/Globulin Ratio 1.0 Assessment: []67 yo male /c advanced pancreatic cancer s/p C1D1 Gemcitabine/Abraxane with course complicated by cellulitis of the abdomen, acute renal failure, and severe anasarca appearing to improve slowly with abx., s/p albumin infusion, and cont.'d lasix drip. Plan: []1. KALPESH with anasarca: improving slowly - cont. lasix drip 2. Cellulitis: improved - s/p 1 week IV abx. - leukocytosis improved today 3. Anemia: stable - appears 2/2 chronic disease, but to be cautious will complete work-up by checking B12 and TSH 4. Severe protein caloric malnutrition: - enc. high protein diet, nutrition consult 5. Pancreatic Cancer: will resume tx. as outpatient, though unfortunately may not be able to receive Gemcitabine with recent anasarca - Pleural effusion does not appear to have re-accumulated, monitor 6. Diabetes: cont. insulin, I suspect he will be best managed with insulin as an outpatient as well - he is OK with this but would really like a pen device d/t anxiety about needles 7. Pain: increase long acting to q8hrs, cont. PRNs
[2018-05-19] MEDS: Morphine TAB Extended Release (*) 15 MG TAB.ER PO SCH ×2 (14:18→22:17)
[2018-05-19] MEDS: NS 0.9% IVPB SCH (16:40)
[2018-05-19] MEDS: CEFTRIAXONE IVPB SCH (16:40)
[2018-05-19] MEDS ORDERED: oxyCODONE SR TAB(*) 10 MG TAB.SR PO SCH (21:00)
[2018-05-19] MEDS: Insulin GLARGINE(*) 1 UNITS UNIT SUBCUT SCH (22:20)
[2018-05-20] MEDS: oxyCODONE TAB* 5 MG TAB PO PRN ×5 (04:09→22:20)
[2018-05-20] MEDS: Omeprazole CAP* 20 MG PO SCH (06:03)
[2018-05-20] MEDS: Morphine TAB Extended Release (*) 15 MG TAB.ER PO SCH ×3 (06:03→22:11)
[2018-05-20] MEDS: Levothyroxine TAB* 75 MCG TAB PO SCH (06:03)
[2018-05-20] MEDS: Docusate CAP* 100 MG PO SCH ×2 (08:31→22:09)
[2018-05-20] MEDS: lamoTRIgine TAB(*) 100 MG PO SCH ×2 (08:32→22:12)
[2018-05-20] MEDS: Senna TAB PO SCH ×2 (08:33→22:09)
[2018-05-20] MEDS: Potassium Chlor TAB* 20 MEQ TAB.ER PO SCH ×3 (08:34→22:15)
[2018-05-20] MEDS: Aspirin EC TAB* 81 MG TAB.EC PO SCH (08:34)
[2018-05-20] MEDS: Insulin LISPRO* 1 UNITS UNIT SUBCUT SCH ×3 (08:35→18:01)
[2018-05-20] MEDS: Multivitamins/Minerals TAB PO SCH (08:35)
[2018-05-20] MEDS: Ticagrelor* 90 MG TAB PO SCH ×2 (08:35→22:12)
[2018-05-20] MEDS: Heparin VIAL(*) 5000 UNITS/ML VIAL (FIVE THOUSAND) SUBCUT SCH ×2 (08:36→22:08)
[2018-05-20] MEDS: BuPROPion XL* 300 MG TAB.XL PO SCH (08:50)
[2018-05-20] MEDS: Furosemide IV* 100 MG in NS 0.9% 100 ML* 90 ML IV SCH ×2 (09:08→19:34)
[2018-05-20 10:46] LABS: EGFR Non-African American 22.8 (>60)
--- NOTE | 2018-05-20 11:40 | PN ---
Progress Note - Progress Note Date of Service: 05/20/18 SOAP: Subjective: []Feeling well today. Had a lot more pain in feet/toes last night, however re- wrapped this AM and so much better. Urinating frequently and having some more frequent BMs (though no constipation and grateful to be going). Redness on abd is much better though still firm. Medications: Aspirin (Aspirin Ec Tab*) 81 mg PO DAILY [facility] Last Admin: 05/20/18 08:34 Dose: 81 mg Bupropion HCl (Bupropion Xl*) 300 mg PO DAILY [facility] Last Admin: 05/20/18 08:50 Dose: 300 mg Dextrose (D50w Syringe 50 Ml*) 12.5 gm IV PUSH .FOR FS < 60 - SS PRN PRN Reason: FS < 60 Docusate Sodium (Colace Cap*) 200 mg PO BID [facility] Last Admin: 05/20/18 08:31 Dose: 200 mg Heparin Sodium (Porcine) (Heparin Vial(*)) 5,000 units SUBCUT Q12H [facility] Last Admin: 05/20/18 08:36 Dose: 5,000 units Heparin Sodium (Porcine) (Heparin Flush Port (Ivad)) 5 ml FLUSH DAILY [facility]; Protocol Last Admin: 05/20/18 08:37 Dose: Not Given Furosemide 100 mg/ Sodium (Chloride) 100 mls @ 20 mls/hr IV Q10H [facility] Last Admin: 05/20/18 09:08 Dose: 20 mls/hr Ceftriaxone Sodium 2 gm/ (Sodium Chloride) 50 mls @ 100 mls/hr IVPB 1700 [facility] Last Admin: 05/19/18 16:40 Dose: 100 mls/hr Insulin Glargine (Lantus(*)) 20 units SUBCUT Q24H [facility] Insulin Human Lispro (Humalog*) 0 units SUBCUT AC [facility]; Protocol Last Admin: 05/20/18 08:35 Dose: 12 units Lamotrigine (Lamictal Tab(*)) 100 mg PO BID [facility] Last Admin: 05/20/18 08:32 Dose: 100 mg Levothyroxine Sodium (Synthroid Tab*) 75 mcg PO DAILY@0600 [facility] Last Admin: 05/20/18 06:03 Dose: 75 mcg Morphine Sulfate (Ms Contin(*)) 15 mg PO Q8H [facility] Last Admin: 05/20/18 06:03 Dose: 15 mg Multivitamins/Minerals (Theragran/Minerals Tab*) 1 tab PO DAILY [facility] Last Admin: 05/20/18 08:35 Dose: 1 tab Omeprazole (Prilosec Cap*) 20 mg PO DAILY@0600 [facility] Last Admin: 05/20/18 06:03 Dose: 20 mg Ondansetron HCl (Zofran Tab*) 4 mg PO Q6HR PRN PRN Reason: NAUSEA Oxycodone HCl (Roxycodone Tab*) 10 mg PO Q4HR PRN PRN Reason: PAIN - BREAKTHROUGH Last Admin: 05/20/18 08:30 Dose: 10 mg Polyethylene Glycol/Electrolytes (Miralax*) 17 gm PO Q12H [facility] Last Admin: 05/19/18 22:22 Dose: 17 gm Potassium Chloride (Klor Con Er Tab*) 40 meq PO TID [facility] Last Admin: 05/20/18 08:34 Dose: 40 meq Prochlorperazine (Compazine Tab*) 10 mg PO Q6HR PRN PRN Reason: NAUSEA/VOMITING Senna (Senokot Tab*) 1 tab PO BID [facility] Last Admin: 05/20/18 08:33 Dose: Not Given Ticagrelor (Brilinta*) 90 mg PO BID [facility] Last Admin: 05/20/18 08:35 Dose: 90 mg Objective: [] Vital Signs Temp Pulse Resp BP Pulse Ox 98.2 F 97 15 125/53 96 05/20/18 04:00 05/20/18 04:00 05/20/18 08:36 05/20/18 04:00 05/20/18 04:00 A&Ox3, EOMI, PERALES, neuro grossly non-focal HRR, S1S2 LS clear bilat., resp. even and non-labored +BS, abd. soft and non-tender RLQ firm with very light pink, blanchable +3 edema bilat. LEs Laboratory Results - last 24 hr 05/19/18 05/19/18 05/19/18 10:30 11:43 16:22 Sodium Potassium Chloride Carbon Dioxide Anion Gap BUN Creatinine Est GFR ( Amer) Est GFR (Non-Af Amer) BUN/Creatinine Ratio Glucose POC Glucose (mg/dL) 212 H 294 H Calcium Vitamin B12 671 Folate 17.88 TSH 3.63 05/19/18 05/20/18 05/20/18 21:15 08:17 09:30 Sodium 134 L Potassium 4.0 Chloride 96 L Carbon Dioxide 27 Anion Gap 11 BUN 65 H Creatinine 2.78 H Est GFR ( Amer) 27.6 Est GFR (Non-Af Amer) 22.8 BUN/Creatinine Ratio 23.4 H Glucose 279 H POC Glucose (mg/dL) 216 H 307 H Calcium 8.5 L Vitamin B12 Folate TSH Assessment: []67 yo m with metastatic pancreatic cancer c/b RLQ cellulitis and subsequent KALPESH and anasarca now improve following albumin and cont.'d decline in Cr toward baseline on lasix drip. Plan: []- Cont. IV lasix and abx. for now - PT eval. and tx. Dispo: Inpt. with cont.'d diuresis, goal of home before 9 as he has a consultation at [facility], goal of Cr <2 or even closer to baseline of <1.5 on d/c
[2018-05-20] MEDS: Polyethylene Glycol 3350* 17 GM PACKET PO SCH ×2 (12:51→22:09)
[2018-05-20] MEDS: NS 0.9% IVPB SCH (18:00)
[2018-05-20] MEDS: CEFTRIAXONE IVPB SCH (18:00)
[2018-05-20] MEDS ORDERED: Insulin GLARGINE(*) 1 UNITS UNIT SUBCUT SCH (21:00)
[2018-05-21] MEDS: oxyCODONE TAB* 5 MG TAB PO PRN ×5 (02:38→23:56)
[2018-05-21] MEDS: Furosemide IV* 100 MG in NS 0.9% 100 ML* 90 ML IV SCH ×3 (04:21→23:57)
[2018-05-21 05:03] LABS: Hematocrit 24 % (42-52); Hemoglobin 7.9 g/dl (14.0-18.0); Mean Corpuscular HGB Conc 33 g/dl (31-36); Mean Corpuscular Hemoglobin 26 pg (27-31); Mean Corpuscular Volume 78 fL (80-94); Mean Platelet Volume 7.5 um3 (7.4-10.4); Platelet Count 465 10^3/ul (150-450); Red Blood Count 3.09 10^6/ul (4.00-5.40); Red Cell Distribution Width 23 % (10.5-15); White Blood Count 10.8 10^3/ul (3.5-10.8)
[2018-05-21 05:16] LABS: EGFR Non-African American 25.5 (>60)
[2018-05-21] MEDS: Morphine TAB Extended Release (*) 15 MG TAB.ER PO SCH ×3 (05:23→21:43)
[2018-05-21] MEDS: Omeprazole CAP* 20 MG PO SCH (05:23)
[2018-05-21] MEDS: Levothyroxine TAB* 75 MCG TAB PO SCH (05:23)
[2018-05-21 05:25] LABS: ABS Basophils 0 10^3/ul (0-0.2); ABS Neutrophils 8.4 10^3/ul (1.5-7.7); ABS Neutrophils 8.6 10^3/ul (1.5-7.7); Monocytes % 3 % (0-7)
[2018-05-21] MEDS: lamoTRIgine TAB(*) 100 MG PO SCH ×2 (08:04→21:44)
[2018-05-21] MEDS: BuPROPion XL* 300 MG TAB.XL PO SCH (08:04)
[2018-05-21] MEDS: Senna TAB PO SCH ×2 (08:04→21:44)
[2018-05-21] MEDS: Multivitamins/Minerals TAB PO SCH (08:05)
[2018-05-21] MEDS: Aspirin EC TAB* 81 MG TAB.EC PO SCH (08:06)
[2018-05-21] MEDS: Ticagrelor* 90 MG TAB PO SCH ×2 (08:06→21:44)
[2018-05-21] MEDS: Docusate CAP* 100 MG PO SCH ×2 (08:06→21:43)
[2018-05-21] MEDS: Potassium Chlor TAB* 20 MEQ TAB.ER PO SCH ×3 (08:06→21:43)
[2018-05-21] MEDS: Heparin VIAL(*) 5000 UNITS/ML VIAL (FIVE THOUSAND) SUBCUT SCH ×2 (08:10→21:58)
[2018-05-21] MEDS: Insulin LISPRO* 1 UNITS UNIT SUBCUT SCH ×3 (08:10→18:12)
[2018-05-21] MEDS: Polyethylene Glycol 3350* 17 GM PACKET PO SCH ×2 (12:24→23:50)
[2018-05-21] MEDS ORDERED: oxyCODONE TAB* 5 MG TAB PO PRN (13:12)
--- NOTE | 2018-05-21 17:17 | PN ---
Progress Note - Progress Note Date of Service: 05/21/18 SOAP: Subjective: []Seen and examined this AM. Feeling very well though did not sleep well last night. Pain remains an issue however and he does not feel that the short acting does a lot. Medications: Aspirin (Aspirin Ec Tab*) 81 mg PO DAILY [facility] Last Admin: 05/21/18 08:06 Dose: 81 mg Bupropion HCl (Bupropion Xl*) 300 mg PO DAILY [facility] Last Admin: 05/21/18 08:04 Dose: 300 mg Dextrose (D50w Syringe 50 Ml*) 12.5 gm IV PUSH .FOR FS < 60 - SS PRN PRN Reason: FS < 60 Docusate Sodium (Colace Cap*) 200 mg PO BID [facility] Last Admin: 05/21/18 08:06 Dose: 200 mg Heparin Sodium (Porcine) (Heparin Vial(*)) 5,000 units SUBCUT Q12H [facility] Last Admin: 05/21/18 08:10 Dose: 5,000 units Heparin Sodium (Porcine) (Heparin Flush Port (Ivad)) 5 ml FLUSH DAILY [facility]; Protocol Last Admin: 05/21/18 08:11 Dose: Not Given Furosemide 100 mg/ Sodium (Chloride) 100 mls @ 20 mls/hr IV Q10H [facility] Last Admin: 05/21/18 15:41 Dose: 20 mls/hr Ceftriaxone Sodium 2 gm/ (Sodium Chloride) 50 mls @ 100 mls/hr IVPB 1700 [facility] Last Admin: 05/20/18 18:00 Dose: 100 mls/hr Insulin Glargine (Lantus(*)) 25 units SUBCUT Q24H [facility] Insulin Human Lispro (Humalog*) 0 units SUBCUT AC [facility]; Protocol Last Admin: 05/21/18 12:25 Dose: 9 units Lamotrigine (Lamictal Tab(*)) 100 mg PO BID [facility] Last Admin: 05/21/18 08:04 Dose: 100 mg Levothyroxine Sodium (Synthroid Tab*) 75 mcg PO DAILY@0600 [facility] Last Admin: 05/21/18 05:23 Dose: 75 mcg Morphine Sulfate (Ms Contin(*)) 15 mg PO Q8H [facility] Last Admin: 05/21/18 14:28 Dose: 15 mg Multivitamins/Minerals (Theragran/Minerals Tab*) 1 tab PO DAILY [facility] Last Admin: 05/21/18 08:05 Dose: 1 tab Omeprazole (Prilosec Cap*) 20 mg PO DAILY@0600 [facility] Last Admin: 05/21/18 05:23 Dose: 20 mg Ondansetron HCl (Zofran Tab*) 4 mg PO Q6HR PRN PRN Reason: NAUSEA Oxycodone HCl (Roxycodone Tab*) 10 mg PO Q4HR PRN PRN Reason: PAIN - BREAKTHROUGH Last Admin: 05/21/18 12:25 Dose: 10 mg Oxycodone HCl (Roxycodone Tab*) 15 mg PO Q4H PRN PRN Reason: SEVERE PAIN Polyethylene Glycol/Electrolytes (Miralax*) 17 gm PO Q12H [facility] Last Admin: 05/21/18 12:24 Dose: 17 gm Potassium Chloride (Klor Con Er Tab*) 40 meq PO TID [facility] Last Admin: 05/21/18 14:28 Dose: 40 meq Prochlorperazine (Compazine Tab*) 10 mg PO Q6HR PRN PRN Reason: NAUSEA/VOMITING Senna (Senokot Tab*) 1 tab PO BID [facility] Last Admin: 05/21/18 08:04 Dose: 1 tab Ticagrelor (Brilinta*) 90 mg PO BID [facility] Last Admin: 05/21/18 08:06 Dose: 90 mg Objective: [] Vital Signs Temp Pulse Resp BP Pulse Ox 98.5 F 80 16 118/70 98 05/21/18 14:00 05/21/18 14:00 05/21/18 14:28 05/21/18 14:00 05/21/18 14:00 A&Ox3, EOMI, neuro grossly non-focal HRR, S1S2 LS clear bilat. throughout +BS, abd. soft and non-tender RLQ cellulitis improved though still firm Laboratory Results - last 24 hr 05/20/18 05/20/18 05/21/18 17:52 21:47 04:45 WBC 10.8 RBC 3.09 L Hgb 7.9 L Hct 24 L MCV 78 L MCH 26 L MCHC 33 RDW 23 H Plt Count 465 H D MPV 7.5 Neut % (Auto) Not Reportable Lymph % (Auto) Not Reportable Grant % (Auto) Not Reportable Eos % (Auto) Not Reportable Baso % (Auto) Not Reportable Absolute Neuts (auto) 8.6 H Absolute Lymphs (auto) Not Reportable Absolute Monos (auto) Not Reportable Absolute Eos (auto) Not Reportable Absolute Basos (auto) Not Reportable Absolute Nucleated RBC Not Reportable Immature Gran % 3 Neutrophils % 78 Lymphocytes % 16 L Monocytes % 3 Eosinophils % 0 Basophils % 0 Myelocytes % 3 H Nucleated RBC % Not Reportable Abs Neuts (Manual) 8.4 H Abs Lymphs (Manual) 1.7 Abs Monocytes (Manual) 0.3 Absolute Eos (Manual) 0 Abs Basophils (Manual) 0 Nucleated RBCs/100 WBC 0 Normal RBC Morphology Not Reportable Polychromasia 1+ Hypochromasia 1+ Anisocytosis 2+ Sodium Potassium Chloride Carbon Dioxide Anion Gap BUN Creatinine Est GFR ( Amer) Est GFR (Non-Af Amer) BUN/Creatinine Ratio Glucose POC Glucose (mg/dL) 331 H 240 H Calcium Total Bilirubin AST ALT Alkaline Phosphatase Total Protein Albumin Globulin Albumin/Globulin Ratio 05/21/18 05/21/18 05/21/18 04:45 07:38 12:00 WBC RBC Hgb Hct MCV MCH MCHC RDW Plt Count MPV Neut % (Auto) Lymph % (Auto) Grant % (Auto) Eos % (Auto) Baso % (Auto) Absolute Neuts (auto) Absolute Lymphs (auto) Absolute Monos (auto) Absolute Eos (auto) Absolute Basos (auto) Absolute Nucleated RBC Immature Gran % Neutrophils % Lymphocytes % Monocytes % Eosinophils % Basophils % Myelocytes % Nucleated RBC % Abs Neuts (Manual) Abs Lymphs (Manual) Abs Monocytes (Manual) Absolute Eos (Manual) Abs Basophils (Manual) Nucleated RBCs/100 WBC Normal RBC Morphology Polychromasia Hypochromasia Anisocytosis Sodium 135 Potassium 4.2 Chloride 98 L Carbon Dioxide 27 Anion Gap 10 BUN 64 H Creatinine 2.53 H Est GFR ( Amer) 30.8 Est GFR (Non-Af Amer) 25.5 BUN/Creatinine Ratio 25.3 H Glucose 301 H POC Glucose (mg/dL) 289 H 300 H Calcium 8.3 L Total Bilirubin 0.30 AST 148 H ALT 93 H Alkaline Phosphatase 121 H Total Protein 5.3 L Albumin 2.8 L Globulin 2.5 Albumin/Globulin Ratio 1.1 Assessment: []67 yo male with metastatic pancreatic cancer admitted with cellulitis and KALPESH with anasarca now considerably improved following several days of lasix gtt. Plan: []1. KALPESH: cont.'d improvement and no change as goal is Cr closer to baseline or at least <2 2. Diabetes: increase long acting to 25 un, plan home insulin and sent to pharmacy (via onc. clinic) to determine coverage. Plan sliding scale. 3. Pain: increase short acting to 10-15 mg q4hrs PRN, tomorrow can consider increasing long acting though I am apt to be cautious about increasing his narcotics to quickly Dispo: home likely 05/23 once Cr closer to baseline in planning for consult @ [facility] 04/24
[2018-05-21] MEDS: NS 0.9% IVPB SCH (18:13)
[2018-05-21] MEDS: CEFTRIAXONE IVPB SCH (18:13)
[2018-05-21] MEDS: Insulin GLARGINE(*) 1 UNITS UNIT SUBCUT SCH (22:06)
[2018-05-22] MEDS: oxyCODONE TAB* 5 MG TAB PO PRN ×5 (05:41→22:54)
[2018-05-22] MEDS: Levothyroxine TAB* 75 MCG TAB PO SCH (05:41)
[2018-05-22] MEDS: Omeprazole CAP* 20 MG PO SCH (05:42)
[2018-05-22] MEDS: Morphine TAB Extended Release (*) 15 MG TAB.ER PO SCH ×3 (05:42→21:05)
[2018-05-22 07:06] LABS: EGFR Non-African American 28.9 (>60)
[2018-05-22] MEDS: Potassium Chlor TAB* 20 MEQ TAB.ER PO SCH ×3 (09:48→21:06)
[2018-05-22] MEDS: Docusate CAP* 100 MG PO SCH ×2 (09:51→21:15)
[2018-05-22] MEDS: Senna TAB PO SCH ×2 (09:51→21:16)
[2018-05-22] MEDS: BuPROPion XL* 300 MG TAB.XL PO SCH (09:52)
[2018-05-22] MEDS: Multivitamins/Minerals TAB PO SCH (09:53)
[2018-05-22] MEDS: Ticagrelor* 90 MG TAB PO SCH ×2 (09:53→21:05)
[2018-05-22] MEDS: lamoTRIgine TAB(*) 100 MG PO SCH ×2 (09:53→21:06)
[2018-05-22] MEDS: Aspirin EC TAB* 81 MG TAB.EC PO SCH (09:53)
[2018-05-22] MEDS: Insulin LISPRO* 1 UNITS UNIT SUBCUT SCH ×3 (09:55→17:55)
[2018-05-22] MEDS: Heparin VIAL(*) 5000 UNITS/ML VIAL (FIVE THOUSAND) SUBCUT SCH ×2 (09:56→21:07)
[2018-05-22] MEDS: Furosemide IV* 100 MG in NS 0.9% 100 ML* 90 ML IV SCH ×2 (10:25→21:05)
[2018-05-22] MEDS: Polyethylene Glycol 3350* 17 GM PACKET PO SCH ×2 (10:38→21:16)
[2018-05-22] MEDS: NS 0.9% IVPB SCH (17:55)
[2018-05-22] MEDS: CEFTRIAXONE IVPB SCH (17:55)
[2018-05-22] MEDS: Insulin GLARGINE(*) 1 UNITS UNIT SUBCUT SCH (21:06)
[2018-05-23] MEDS: oxyCODONE TAB* 5 MG TAB PO PRN ×2 (02:51→06:53)
[2018-05-23] MEDS: Morphine TAB Extended Release (*) 15 MG TAB.ER PO SCH (06:01)
[2018-05-23] MEDS: Furosemide IV* 100 MG in NS 0.9% 100 ML* 90 ML IV SCH (06:01)
[2018-05-23] MEDS: Levothyroxine TAB* 75 MCG TAB PO SCH (06:01)
[2018-05-23] MEDS: Omeprazole CAP* 20 MG PO SCH (06:01)
[2018-05-23 06:42] LABS: EGFR Non-African American 36.5 (>60)
[2018-05-23 07:52] VITALS: BP 118/55
[2018-05-23] MEDS: Potassium Chlor TAB* 20 MEQ TAB.ER PO SCH (08:29)
[2018-05-23] MEDS: lamoTRIgine TAB(*) 100 MG PO SCH (08:32)
[2018-05-23] MEDS: Senna TAB PO SCH (08:32)
[2018-05-23] MEDS: BuPROPion XL* 300 MG TAB.XL PO SCH (08:32)
[2018-05-23] MEDS: Docusate CAP* 100 MG PO SCH (08:32)
[2018-05-23] MEDS: Ticagrelor* 90 MG TAB PO SCH (08:32)
[2018-05-23] MEDS: Insulin LISPRO* 1 UNITS UNIT SUBCUT SCH (08:32)
[2018-05-23] MEDS: Multivitamins/Minerals TAB PO SCH (08:32)
[2018-05-23] MEDS: Aspirin EC TAB* 81 MG TAB.EC PO SCH (08:32)
[2018-05-23] MEDS: Heparin VIAL(*) 5000 UNITS/ML VIAL (FIVE THOUSAND) SUBCUT SCH (08:33)
--- NOTE | 2018-05-24 23:17 | DS ---
CC: Dr. Wallace; Dr. Caleb Aiken; [facility] Physician Dr. Tez Marie. * DISCHARGE SUMMARY: DATE OF ADMISSION: 05/11/18. DATE OF DISCHARGE: 05/23/18. PRIMARY CARE PROVIDER: Dr. Wallace. PRIMARY ONCOLOGIST AND ATTENDING PHYSICIAN: Dr. Kim Villegas.* (DICTATED BY JODEE MATIAS) CONSULTING MEMORIAL DESIGNER: Dr. Aiken. PRIMARY DISCHARGE DIAGNOSES: 1. Acute on chronic renal insufficiency. 2. Anasarca. 3. Insulin dependent diabetes with hyperglycemia. 4. Abdominal cellulitis. 5. Malignant pleural effusion with malfunctioning pleurx catheter. 6. Anemia-secondary to marrow suppression from chemotherapy. 7. Metastatic pancreatic cancer. 8. Transaminitis of uncertain significance-may be claims service representative of progressive disease, no signs of biliary obstruction. DISCHARGE MEDICATIONS: 1. Aspirin 81 mg p.o. daily. 2. Bupropion 300 mg p.o. daily. 3. Levothyroxine 75 mcg p.o. daily. 4. Multivitamin 1 tablet p.o. daily. 5. Zofran 4 mg p.o. q.6 hours as needed for nausea, vomiting. 6. Actos 45 mg p.o. daily 8. Compazine 10 mg p.o. q.6 hours as needed for nausea, vomiting. 9. Crestor 40 mg p.o. daily. 10. Brilinta 90 mg p.o. twice daily. 11. Levemir 30 units sub daily. 12. Morphine extended release 15 mg p.o. q. 8 hours. 13. Oxycodone 15 mg p.o. q. 4 hours as needed for pain. 14. Potassium chloride 40 mEq p.o. twice daily. 15. Torsemide 20 mg p.o. twice daily. 16. Humalog per sliding scale at mealtime. MEDICATIONS CHANGES: 1. Start potassium supplements. 2. Replace furosemide with torsemide. 3. Start Humalog. HOSPITAL IMAGIN. Ultrasound of the abdomen shows no ascites. Renal ultrasound shows mild to moderate left hydronephrosis. 2. CT abdomen and pelvis shows mild progression of infiltrative changes in lung bases. There is a stable small 7 mm right lung nodule with small pericardial effusion as well as decrease in the size of the prior noted pleural effusions and a right sided chest tube in place. 3. Diffuse stranding in the mesentry particularly around the pancreas and within the mesentry and in the perinephric spaces which appears unchanged. No definite hydronephrosis as well as anasarca. HOSPITAL COURSE: This was a 67-year-old gentleman with metastatic pancreatic cancer and malignant right-sided pleural effusion for which he had recently started on gemcitabine and Abraxane with cycle 1 day one being 05/04/18. The patient had a right Pleurx catheter placed for a large recurrent pleural effusion, which had been drained frequently by visiting nurse service and the volume of drainage had been decreasing over the couple of weeks that it had been in place. He did notice, however, increased edema and eventually some erythema over the right side of his abdomen. There was concern of the pleurx catheter was leaking into the subcutaneous space and with this he had an associated cellulitis. In addition to this, the patient was found to have multiple electrolyte abnormalities and acute renal insufficiency. His baseline creatinine is somewhere close to 1.7 to 1.8 and his creatinine had suddenly jumped to 2.8 mg/dL. For these reasons, recommendation was made for the patient to admit to hospital for further management of his electrolytes, renal function and cellulitis. The patient was empirically started on Zosyn for his abdominal cellulitis due to the fact that he is immunocompromised and diabetic with hyperglycemia, broader spectrum coverage was chosen. The patient remains afebrile throughout his hospitalization in which period erythema decreased with time. His Pleurx catheter was evaluated by the Surgery Team and eventually was pulled. It was felt that the Pleurx was allowing tracking of his pleural fluid into the subcutaneous space of his abdomen. Regarding the patient's renal function, he was found to be grossly edematous and had been on Lasix at home and metolazone had recently been added, but he noted little improvement in diuresis with this addition. His creatine continued to climb over the first 2 days of the hospitalization, and business risk analyst, Dr. Aiken was consulted. They suggested that his renal dysfunction was most likely prerenal failure secondary to intravascular volume depletion and gross third spacing due to hypoalbuminemia. For this reason, albumin infusion was recommended initially with Lasix bolus and eventually a Lasix drip. This was very effective to initiate appropriate diuresis and the patient's creatinine slowly improved. His albumin improved up to approximately 3 at which point the albumin infusion was discontinued and the Lasix drip was continued. Slowly last week, noted improvement in his anasarca. Compression hose were added to the lower extremities along with EMANI wrap. DISPOSITION AND FOLLOW UP PLAN: The patient is being discharged to home. He has plans for consultation at [facility] with pancreatic malignancy specialist. Medication adjustments were made as above. Plans regarding the chemotherapy are currently to discontinue his gemcitabine and Abraxane due to the possibility of gemcitabine for exacerbating his edema. We will plan to initiate FOLFIRINOX this upcoming week with close up in Oncology and what [facility] recommends an alternative regimen. JODEE MATIAS [id number]/[facility] #: [id number] MTDD
== END 2018-05-23 11:00 | disposition home or self-care (01) | DRG 682 ==
LOC: OBSVTOIN 13:35 → MED 13:35
PROVIDERS: ADMIT Internal Medicine Hematology & Oncology; ATTEND Internal Medicine Hematology & Oncology
PROC: 30233N1 Transfusion of Nonautologous Red Blood Cells into Peripheral Vein, Percutaneous Approach (ICD-10-PCS; principal; 2018-05-14)
DX: N17.9 Acute kidney failure, unspecified (principal); E43 Unspecified severe protein-calorie malnutrition; C25.9 Malignant neoplasm of pancreas, unspecified; J91.0 Malignant pleural effusion; L03.311 Cellulitis of abdominal wall; T85.618A Breakdown (mechanical) of other specified internal prosthetic devices, implants and grafts, initial encounter; I31.3 Pericardial effusion (noninflammatory); J45.909 Unspecified asthma, uncomplicated; E78.5 Hyperlipidemia, unspecified; F31.9 Bipolar disorder, unspecified; E87.6 Hypokalemia; D64.81 Anemia due to antineoplastic chemotherapy; K59.00 Constipation, unspecified; N18.9 Chronic kidney disease, unspecified; I12.9 Hypertensive chronic kidney disease with stage 1 through stage 4 chronic kidney disease, or unspecified chronic kidney disease; N13.30 Unspecified hydronephrosis; Y82.8 Other medical devices associated with adverse incidents; E88.09 Other disorders of plasma-protein metabolism, not elsewhere classified; E11.65 Type 2 diabetes mellitus with hyperglycemia; R91.1 Solitary pulmonary nodule; Z85.820 Personal history of malignant melanoma of skin; Y92.9 Unspecified place or not applicable; Z87.891 Personal history of nicotine dependence; Z79.82 Long term (current) use of aspirin; Z85.72 Personal history of non-Hodgkin lymphomas; Z88.0 Allergy status to penicillin; Z88.8 Allergy status to other drugs, medicaments and biological substances; Z79.02 Long term (current) use of antithrombotics/antiplatelets; Z79.4 Long term (current) use of insulin; Z66 Do not resuscitate; R13.10 Dysphagia, unspecified; R06.02 Shortness of breath
CPT/HCPCS: 36415; 36591; 71046; 74176; 76705; 76775; 80048; 80053; 81003; 81015; 82272; 82607; 82746; 83605; 83735; 84134; 84443; 85025; 86480; 86706; 86803; 86850; 86900; 86901; 86922; 87040; 87340; 99214; 99222; 99231; 99232; 99233; A9270-GY; G0463; G8978-GP-CI; G8979-GP-CI; G8980-GP-CI; J0696; J1100; J1642; J1644; J1940; J2469; J3480; J9201; J9264; P9040; P9047; Q0164

== ENCOUNTER 2018-10-01 14:59 | Inpatient (IN) | payer MEDICARE ==
--- NOTE | 2018-10-01 15:28 | ED ---
HPI Chest Pain - HPI Summary HPI Summary: Patient is a 67 y/o M presenting to ED with complaints of left lateral chest pain and left upper arm pain onsetting at 1030. Arm pain onset first, then chest pain. SOB, nausea and diaphoresis are also reported. Patient was at oncologist appointment today for his malignant pancreatic cancer, bloodwork was done and he was noted to have a 0.3 trop. He was subsequently sent to ED for further workup. Patient was given 3 baby ASA and 1 nitro 7 minutes RING SEWER in ED. In the room, he rates pain 6/10. He denies SOB, vomiting, back pain at this time. Patient notes that he is not on o2 at home. He received chemotherapy yesterday. Home medications and allergies are reviewed. - History of Current Complaint Hx Obtained From: Patient Onset/Duration: Started Hours Ago - onset 1030 today, Still Present - chest pain , Resolved - SOB Timing: Constant, Lasting Hours - chest pain Initial Severity: Moderate - 5/10 on triage Current Severity: Moderate - 6/10 in room Pain Intensity: 6 Pain Scale Used: 0-10 Numeric - 6/10 Chest Pain Location: Left Lateral Chest Pain Radiates: Yes Chest Pain Radiates To:: Arm - left upper arm Aggravating Factor(s): Nothing Alleviating Factor(s): Nothing Associated Signs and Symptoms: Positive: Chest Pain, Shortness of Breath - since resolved, Diaphoresis, Nausea, Other: - POSITIVE - LEFT ARM PAIN. Negative: Back Pain, Vomiting - Additional Pertinent History Primary Care Physician: [id number] - Allergy/Home Medications Allergies/Adverse Reactions: Allergies Allergy/AdvReac Type Severity Reaction Status Date / Time fentanyl Allergy Hives Verified 05/03/18 08:39 gabapentin Allergy Swelling Verified 05/03/18 08:39 Iodinated Contrast- Oral and Allergy Hives Verified 05/03/18 08:39 IV Dye nortriptyline Allergy Swelling Verified 05/03/18 08:39 Of Face,Lips,& Throat Penicillins Allergy Hives Verified 05/03/18 08:39 Home Medications: Home Medications Aspirin EC TAB* [Ecotrin EC Low Dose 81 MG*] 81 mg PO DAILY 10/01/18 [History Confirmed 10/01/18] Bupropion XL* [Wellbutrin XL *] 300 mg PO DAILY 10/01/18 [History Confirmed ] HYDROcodone/ACETAMIN 5-325 MG* [[place] 5-325 TAB*] 1 tab PO Q4H PRN 10/01/18 [ History Confirmed 10/01/18] Insulin Detemir (NF) [Levemir (NF)] 60 unit SUBCUT DAILY 10/01/18 [History Confirmed 10/01/18] Insulin Lispro [Humalog Kwikpen] 0 unit SUBCUT . DIRECTED 10/01/18 [History Confirmed 10/01/18] Metoprolol Succinate XL TAB* [Toprol XL TAB*] 25 mg PO DAILY 10/01/18 [History Confirmed 10/01/18] Nitroglycerin TAB 0.4 MG* 0.4 mg SL Q5M PRN 10/01/18 [History Confirmed 10/01/18 ] Pioglitazone TAB* [Actos TAB*] 45 mg PO DAILY 10/01/18 [History Confirmed ] Potassium Chlor TAB* [Potassium Chlor TAB 20 MEQ*] 20 meq PO BID 10/01/18 [ History Confirmed 10/01/18] oxyCODONE/Acetamin 5/325 MG* [Percocet 5/325 TAB*] 2 tab PO Q4H PRN 10/01/18 [ History Confirmed 10/01/18] PMH/Surg Hx/FS Hx/Imm Hx Endocrine/Hematology History: Reports: Hx Diabetes Denies: Hx Systemic Lupus Erythematosus Cardiovascular History: Reports: Hx Hypercholesterolemia, Hx Hypertension Denies: Hx Congestive Heart Failure, Hx Pacemaker/ICD Respiratory History: Reports: Hx Asthma - A CHILD, Other Respiratory Problems /Disorders - HX OF LYMPHOMA IN REMISSION GI History: Reports: Other GI Disorders - PT HAD A PERIOD ON NAUSEA/VOMMITING DUE TO A MEDICATION History: Denies: Hx Dialysis, Hx Renal Disease Musculoskeletal History: Denies: Hx Arthritis, Hx Rheumatoid Arthritis Sensory History: Reports: Hx Contacts or Glasses Denies: Hx Hearing Aid Opthamlomology History: Reports: Hx Contacts or Glasses Psychiatric History: Reports: Hx Panic Disorder - Cancer History Cancer Type, Location and Year: MELANOMA AND LYMPHOMA. Hx Chemotherapy: Yes - Surgical History Surgery Procedure, Year, and Place: PROCEDURES REMOVAL OF SKIN CANCER dx WITH MELANOMA 2006. RECENTLY HAD NUMEROUS SPOTS REMOVED AND IS WAITING FOR THE RESULTS. NO RECENT SX. MULTIPLE SX FOR LYMPHOMA. shoulder surgery Infectious Disease History: No Infectious Disease History: Denies: Traveled Outside the [place] in Last 30 Days - Family History Known Family History: Positive: Cardiac Disease, Hypertension, Diabetes - Social History Alcohol Use: None Substance Use Type: Reports: None Smoking Status (MU): Former Smoker Type: Cigarettes, eCigarettes Amount Used/How Often: 2-3 PPD Length of Time of Smoking/Using Tobacco: 19 Years Have You Smoked in the Last Year: No Review of Systems Positive: Skin Diaphoresis Positive: Chest Pain - left lateral Positive: Shortness Of Breath - since resolved Positive: Nausea. Negative: Vomiting Positive: Other - POSITIVE - LEFT ARM PAIN; NEGATIVE - BACK PAIN All Other Systems Reviewed And Are Negative: Yes Physical Exam - Summary Physical Exam Summary: VITAL SIGNS: Reviewed. GENERAL: Patient is a well-developed and nourished male who is lying comfortable in the stretcher. Patient is not in any acute respiratory distress. HEAD AND FACE: No signs of trauma. No ecchymosis, hematomas or skull depressions. No sinus tenderness. EYES: PERRLA, EOMI x 2, No injected conjunctiva, no nystagmus. EARS: Hearing grossly intact. Ear canals and tympanic membranes are within normal limits. MOUTH: Oropharynx within normal limits. NECK: Supple, trachea is midline, no adenopathy, no JVD, no carotid bruit, no c- spine tenderness, neck with full ROM. CHEST: Symmetric, no tenderness at palpation LUNGS: Clear to auscultation bilaterally. No wheezing or crackles. CVS: tachycardic, S1 and S2 present, no murmurs or gallops appreciated. ABDOMEN: Soft, non-tender. No signs of distention. No rebound no guarding, and no masses palpated. Bowel sounds are normal. EXTREMITIES: FROM in all major joints, no edema, no cyanosis or clubbing. NEURO: Alert and oriented x 3. No acute neurological deficits. Speech is normal and follows commands. SKIN: Dry and warm Triage Information Reviewed: Yes Vital Signs On Initial Exam: Initial Vitals Temp Pulse Resp BP Pulse Ox 97.8 F 107 20 159/96 96 10/01/18 15:06 10/01/18 15:06 10/01/18 15:06 10/01/18 15:06 10/01/18 15:06 Vital Signs Reviewed: Yes Diagnostics - Vital Signs Vital Signs Temp Pulse Resp BP Pulse Ox 10/01/18 15:06 97.8 F 107 20 159/96 96 - Laboratory Result Diagrams: 10/01/18 17:14 10/01/18 17:14 Lab Statement: Any lab studies that have been ordered have been reviewed, and results considered in the medical decision making process. - Radiology CXR Radiology Interpretation Completed By: Radiologist Summary of Radiographic Findings: IMPRESSION: 1. PROGRESSIVE VOLUME LOSS AND INTERSTITIAL INFILTRATE WITHIN THE RIGHT LUNG. 2. PROBABLE SMALL RIGHT PLEURAL EFFUSION. THIS REPORT WAS REVIEWED BY ED PHYSICIAN. LUNG SCAN-VQ NM Radiology Interpretation Completed By: Radiologist Summary of Radiographic Findings: IMPRESSION: STUDY INTERMEDIATE FOR PULMONARY EMBOLISM ALTHOUGH THE RIGHT LUNG PERFUSION. VENTILATION ABNORMALITY IS LIKELY RELATED TO THE UNDERLYING PARENCHYMAL DISEASE WHICH. APPEARS PROGRESSIVE WHEN COMPARED WITH PRIOR CHEST X-RAY AND CT STUDIES. THIS REPORT WAS REVIEWED BY ED PHYSICIAN. - EKG 1450 Cardiac Rate: Tachycardia - rate of 106 bpm EKG Rhythm: Sinus Tachycardia Summary of EKG Findings: EKG showed sinus tachycardia with rate of 106 BPM. Chest Pain Course/Dx - Course Assessment/Plan: Patient was transferred by Leisa Albarran from oncology is stating that the patient is a 59-year-old male who presented this morning to the office complaining of left upper extremity pain and left-sided chest pain. He reports that the pain is 6 out of 10 pressure-like pain with some nausea and diaphoresis. They have done blood work which shows that the glucose is 282, BUN is 40, creatinine is 1.67, troponin is 0.3, CK-MB is 9.5. CBC shows a white count of 28, hematocrit 12.4, hematocrit 39, and platelets 321. EKG shows a normal sinus rhythm without any ST elevations. The patient was given aspirin. At this point the patient is very comfortable. However because of the history of the chest pain, the hypoxia, the tachycardia and a history of pancreatic cancer we will decide to do a VQ scan since the patient is allergic to IV dye. Chest x-ray impression: Progressive volume loss of the interstitial infiltrate within the right lung. Probably small right pleural effusion. VQ scan impression: Study indeterminate for pulmonary embolus. Although the right lung perfusion ventilation abnormality is likely related to the underlying parenchymal disease which appears progressive when compared with prior chest x- rays and CT studies. Patient was given 1 dose of morphine as his scheduled pain medications. I discuss my physical exam, findings and test results with Dr. Knapp from the hospitalist services and he agrees to admit patient to his services. Patient is hemodynamically stable alert and oriented x 3. - Chest Pain Differential Diagnosis/HQI/PQRI: Acute OK, ACS, Angina, CHF, Chest Wall, GI Disease, Lower Respiratory Infection - Diagnoses Provider Diagnoses: Chest pain, Elevated troponin - Provider Notifications Discussed Care Of Patient With: Vladimir Knapp Time Discussed With Above Provider: 16:57 Instructed by Provider To: Other - [id number] - Patient's case was reviewed by Dr. Knapp, Dr. Knapp accepts patient for admission. Discharge - Sign-Out/Discharge Documenting (check all that apply): Patient Departure - admit - Discharge Plan Condition: Fair Disposition: ADMITTED TO [facility] Referrals: Peggy Wallace MD [Primary Care Provider] - - Attestation Statements Document Initiated by Scribe: Yes Documenting Scribe: PEGGY MEDINA Provider For Whom Scribe is Documenting (Include Credential): ABDIFATAH SHARPE MD Scribe Attestation: I, PEGGY MEDINA , scribed for ABDIFATAH SHARPE MD on 10/01/18 at 1801. Status of Scribe Document: Ready
[2018-10-01] MEDS ORDERED: Enoxaparin(*) 40 MG/0.4 ML SYR SUBCUT SCH (17:00)
[2018-10-01] MEDS ORDERED: Nitroglycerin TAB 0.4 MG* 0.4 MG TAB SL PRN (17:03)
[2018-10-01] MEDS ORDERED: Dextrose 50% Syringe 50 ML* 25 GM/50 ML SYRINGE IV PUSH PRN (17:03)
[2018-10-01] MEDS ORDERED: Morphine VIAL* 4 MG/ML VIAL (1 ml vial) IV ONE (17:13)
--- NOTE | 2018-10-01 17:15 | ADMNOTE ---
Subjective Date of Service: 10/01/18 Interval History: ADMISSION HISTORY AND PHYSICAL EXAM: Allergies Allergy/AdvReac Type Severity Reaction Status Date / Time fentanyl Allergy Hives Verified 05/03/18 08:39 gabapentin Allergy Swelling Verified 05/03/18 08:39 Iodinated Contrast- Oral and Allergy Hives Verified 05/03/18 08:39 IV Dye nortriptyline Allergy Swelling Verified 05/03/18 08:39 Of Face,Lips,& Throat Penicillins Allergy Hives Verified 05/03/18 08:39 Home Medications Medication Instructions Recorded Confirmed Type Levothyroxine TAB* [Synthroid 75 75 mcg PO DAILY 04/20/18 10/01/18 History MCG TAB*] Multivitamins/Minerals TAB* 1 tab PO DAILY 04/20/18 10/01/18 History [Theragran/minerals TAB*] Rosuvastatin (NF) [Crestor (NF)] 40 mg PO DAILY 04/20/18 10/01/18 History Prochlorperazine Maleate 10 mg PO Q6HR PRN 05/11/18 10/01/18 History [Compazine] Morphine TAB Extended Rel(*) [Ms 15 mg PO Q8H #90 tab.er MDD 45 mg 05/23/18 Rx Contin(*)] Torsemide TAB* [Demadex 20 MG*] 20 mg PO BID #60 tab 05/23/18 10/01/18 Rx Aspirin EC TAB* [Ecotrin EC Low 81 mg PO DAILY 10/01/18 10/01/18 History Dose 81 MG*] Bupropion XL* [Wellbutrin XL *] 300 mg PO DAILY 10/01/18 10/01/18 History HYDROcodone/ACETAMIN 5-325 MG* 1 tab PO Q4H PRN 10/01/18 10/01/18 History [[place] 5-325 TAB*] Insulin Detemir (NF) [Levemir (NF)] 60 unit SUBCUT DAILY 10/01/18 10/01/18 History Insulin Lispro [Humalog Kwikpen] 0 unit SUBCUT . DIRECTED 10/01/18 10/01/18 History Metoprolol Succinate XL TAB* 25 mg PO DAILY 10/01/18 10/01/18 History [Toprol XL TAB*] Nitroglycerin TAB 0.4 MG* 0.4 mg SL Q5M PRN 10/01/18 10/01/18 History Pioglitazone TAB* [Actos TAB*] 45 mg PO DAILY 10/01/18 10/01/18 History Potassium Chlor TAB* [Potassium 20 meq PO BID 10/01/18 10/01/18 History Chlor TAB 20 MEQ*] oxyCODONE/Acetamin 5/325 MG* 2 tab PO Q4H PRN 10/01/18 10/01/18 History [Percocet 5/325 TAB*] HPI: The patient developed L upper arm pain around 10;30 AM today, level 7/10, persistent through my visit. He took 15 mg oxycodone at home with little effect. He never had similar pain before. Before his cardiac stents he would get a midsternal burning pain from his heart. No SOB. Chronic cough, unchanged. Family History: Findings - unremarkable Social History: Findings - Lives with his who is his SDM. Past Medical History: Findings - Cardiac stents 07/2017, finished ticagrelor a few weeks ago. Met pancreatic ca, malignant pleural effusion and multiple lung mets. DM Review of Systems - Measurements Intake and Output: Intake and Output Last 24 Hours 09/29/18 09/30/18 10/01/18 10/02/18 06:59 06:59 06:59 06:59 Weight 205 lb - Review of Systems Constitutional Symptoms: Positive: Weight Gain - a few pounds Dermatology: Positive: Skin Lesions - mets R chest wall from pleural drainage HEENT: Positive: Normal Eyes: Positive: Normal Thyroid: Positive: Normal Pulmonary: Positive: Cough Cardiology: Positive: Normal Gastroenterology: Positive: Normal Genital - Urinary: Positive: Normal Musculoskeletal: Positive: Joint Pain Endocrinology: Positive: Diabetes Mellitus Hematologic/Lymphatic: Positive: Anemia Neurology: Positive: Normal Psychiatry: Positive: Normal Allergic/Immunologic: Negative: Hx Anaphylaxis, Hx Angioedema, Hx Environmental, Hx Seasonal, Athsma, Hx HIV, Immunocompromise, Swollen Glands LymphNodes, Other Objective Active Medications: Aspirin (Aspirin Ec Tab*) 81 mg PO DAILY [facility] Bupropion HCl (Wellbutrin Xl *) 300 mg PO DAILY [facility] Dextrose (D50w Syringe 50 Ml*) 12.5 gm IV PUSH .FOR FS < 60 - SS PRN PRN Reason: FS < 60 Enoxaparin Sodium (Lovenox(*)) 40 mg SUBCUT Q24H [facility] Insulin Glargine (Lantus(*)) 20 units SUBCUT Q24H [facility] Insulin Human Lispro (Humalog*) 0 units SUBCUT ACHS [facility]; Protocol Levothyroxine Sodium (Synthroid Tab*) 75 mcg PO DAILY [facility] Metoprolol Succinate (Toprol Xl Tab*) 25 mg PO DAILY [facility] Morphine Sulfate (Ms Contin(*)) 30 mg PO Q12H [facility] Nitroglycerin (Nitroglycerin Tab 0.4 Mg*) 0.4 mg SL Q5M PRN PRN Reason: PAIN - CHEST Oxycodone HCl (Oxycontin(*)) 20 mg PO Q3H PRN PRN Reason: PAIN Pioglitazone HCl (Actos Tab*) 45 mg PO DAILY [facility] Potassium Chloride (Klor Con Er Tab*) 20 meq PO DAILY [facility] Prochlorperazine (Compazine Tab*) 10 mg PO Q6HR PRN PRN Reason: NAUSEA/VOMITING Rosuvastatin Calcium (Crestor (Nf)) 40 mg PO DAILY [facility] Torsemide (Demadex*) 20 mg PO BID [facility] Vital Signs - 8 hr 10/01/18 15:06 Temperature 97.8 F Pulse Rate 107 Respiratory 20 Rate Blood Pressure 159/96 (mmHg) O2 Sat by Pulse 96 Oximetry Oxygen Devices in Use Now: None Appearance: Alert, supine in bed. Neutral affect. Looks comfortable. Eyes: No Scleral Icterus Neck: NL Appearance and Movements; NL JVP, No Thyroid Enlargement, Masses Respiratory: Symmetrical Chest Expansion and Respiratory Effort, Clear to Auscultation, Clear to Percussion Cardiovascular: NL Sounds; No Murmurs; No JVD, RRR, No Edema, - Abdominal: NL Sounds; No Tenderness; No Distention, No Hepatosplenomegaly, - Extremities: No Clubbing, Cyanosis, - - 1+ edema BL Skin: No Rash or Ulcers, - - Firm fixed nodules R chest wall, erythema overlying skin. Neurological: Alert and Oriented x 3, NL Sensation Assess/Plan/Problems-Billing Assessment: - Patient Problems (1) CAD (coronary artery disease) Current Visit: Yes Status: Acute Code(s): I25.10 - ATHSCL HEART DISEASE OF [place] CORONARY ARTERY W/O ANG PCTRS SNOMED Code(s): 33505255 Comment: Not at all clear his L arm pain is cardiac. Will watch on tele, get ECG and echo in AM. Second troponin this evening. (2) Pancreatic cancer Current Visit: Yes Status: Acute Comment: Discussed with Dr. Villegas. Increase MS ER to 30 mg bid, increase oxycodone to 20 mg q 3 hr PRN. (3) Diabetes Current Visit: Yes Status: Acute Code(s): E11.9 - TYPE 2 DIABETES MELLITUS WITHOUT COMPLICATIONS SNOMED Code(s): 76151727 Comment: Substitute Lantus for levemir, same dose. Lispro by SS. (4) Hypothyroid Current Visit: Yes Status: Acute Code(s): E03.9 - HYPOTHYROIDISM, UNSPECIFIED SNOMED Code(s): 23374741 Comment: Continue levothyroxine. TSH wnl 05/19/2018.
[2018-10-01 17:29] LABS: Hematocrit 36 % (42-52); Hemoglobin 11.5 g/dl (14.0-18.0); Mean Corpuscular HGB Conc 32 g/dl (31-36); Mean Corpuscular Hemoglobin 26 pg (27-31); Mean Corpuscular Volume 80 fL (80-94); Mean Platelet Volume 7.4 fL (7.4-10.4); Platelet Count 303 10^3/ul (150-450); Red Blood Count 4.49 10^6/ul (4.00-5.40); Red Cell Distribution Width 20 % (10.5-15); White Blood Count 19.2 10^3/ul (3.5-10.8)
[2018-10-01 17:41] LABS: Activated Partial Thrombo Time 25.9 seconds (26.0-36.3); INR 0.98 (0.77-1.02)
[2018-10-01] MEDS ORDERED: Metoprolol Tartrate TAB* 25 MG PO ONE ×2 (17:45→21:39)
[2018-10-01 17:49] LABS: Albumin 3.4 g/dL (3.2-5.2); Albumin/Globulin Ratio 1.3 (1-3); BUN/Creatinine Ratio 26.1 (8-20); Calcium 8.8 mg/dL (8.6-10.3); EGFR African American 51.9 (>60); EGFR Non-African American 42.9 (>60); Globulin 2.7 g/dL (2-4); Total Bilirubin 0.3 mg/dL (0.2-1.0); Total Protein 6.1 g/dL (6.4-8.9)
[2018-10-01 17:50] LABS: Potassium 5.4 mmol/L (3.5-5.0)
[2018-10-01 18:05] LABS: Troponin I 4.28 ng/mL (<0.04)
[2018-10-01] MEDS ORDERED: Metoprolol Tartrate IV* 1 MG/ML 5 ML VIAL IV PRN (18:25)
[2018-10-01] MEDS: Heparin DRIP 25,000 UNITS(*) 25,000 UNITS/500 ML BAG IV SCH (18:48)
[2018-10-01] MEDS: Heparin VIAL(*) 5000 UNITS/ML VIAL (FIVE THOUSAND) IV PRN (18:48)
[2018-10-01] MEDS ORDERED: nitroGLYCERIN DRIP* 25,000 MCG/250 ML BTL IV SCH ×2 (19:00→19:24)
--- NOTE | 2018-10-01 19:25 | PN ---
Hospitalist Progress Note Date of Service: 10/01/18 HOSPITALIST ADDENDUM Called by Pharmacy to clarify Nitro drip order. Contacted Dr Knapp and clarified plan. Patient to be admitted to ICU.
[2018-10-01] MEDS: Prochlorperazine TAB* 10 MG PO PRN (20:37)
[2018-10-01] MEDS: Torsemide TAB* 20 MG PO SCH (20:37)
[2018-10-01] MEDS: Ticagrelor* 90 MG TAB PO SCH (20:38)
[2018-10-01] MEDS: Morphine TAB Extended Release (*) 30 MG TAB.ER PO SCH (20:38)
[2018-10-01] MEDS: Insulin LISPRO* 1 UNITS UNIT SUBCUT SCH (20:51)
[2018-10-01 21:04] LABS: ABS Basophils 0.1 10^3/ul (0-0.2); ABS Eosinophils 0.2 10^3/ul (0-0.6); ABS Lymphocytes 0.8 10^3/ul (1.0-4.8); ABS Monocytes 1.2 10^3/ul (0-0.8); ABS Neutrophils 15.9 10^3/ul (1.5-7.7); ABS Nucleated RBC 0 10^3/ul; Eosinophil % 1.2 %; Hematocrit 35 % (42-52); Hemoglobin 11.2 g/dl (14.0-18.0); Lymphocyte % 4.4 %; Mean Corpuscular HGB Conc 32 g/dl (31-36); Mean Corpuscular Hemoglobin 26 pg (27-31); Mean Corpuscular Volume 80 fL (80-94); Mean Platelet Volume 7.4 fL (7.4-10.4); Nucleated Red Blood Cells % 0; Platelet Count 310 10^3/ul (150-450); Red Blood Count 4.35 10^6/ul (4.00-5.40); Red Cell Distribution Width 19 % (10.5-15); White Blood Count 18.2 10^3/ul (3.5-10.8)
[2018-10-01 21:18] LABS: EGFR African American 51.2 (>60); EGFR Non-African American 42.3 (>60)
[2018-10-01 21:33] LABS: Troponin I 19.84 ng/mL (<0.04)
[2018-10-02] MEDS: Benzonatate CAP* 100 MG PO PRN ×2 (00:26→22:27)
[2018-10-02 00:53] LABS: Troponin I 30.65 ng/mL (<0.04)
[2018-10-02] MEDS ORDERED: Metoprolol Tartrate IV* 1 MG/ML 5 ML VIAL IV ONE (02:04)
[2018-10-02] MEDS: Heparin VIAL(*) 5000 UNITS/ML VIAL (FIVE THOUSAND) IV PRN (03:31)
[2018-10-02] MEDS: Levothyroxine TAB* 75 MCG TAB PO SCH (06:02)
[2018-10-02 06:30] LABS: ABS Basophils 0.1 10^3/ul (0-0.2); ABS Eosinophils 0.3 10^3/ul (0-0.6); ABS Lymphocytes 0.8 10^3/ul (1.0-4.8); ABS Monocytes 0.8 10^3/ul (0-0.8); ABS Neutrophils 12.1 10^3/ul (1.5-7.7); ABS Nucleated RBC 0 10^3/ul; Hematocrit 34 % (42-52); Hemoglobin 10.8 g/dl (14.0-18.0); Lymphocyte % 5.9 %; Mean Corpuscular HGB Conc 32 g/dl (31-36); Mean Corpuscular Hemoglobin 26 pg (27-31); Mean Corpuscular Volume 80 fL (80-94); Mean Platelet Volume 7.7 fL (7.4-10.4); Nucleated Red Blood Cells % 0; Platelet Count 288 10^3/ul (150-450); Red Blood Count 4.24 10^6/ul (4.00-5.40); Red Cell Distribution Width 20 % (10.5-15); White Blood Count 14.1 10^3/ul (3.5-10.8)
[2018-10-02 06:55] LABS: Troponin I 57.08 ng/mL (<0.04)
[2018-10-02] MEDS ORDERED: Perflutren Lipid Microsphere* 3 ML VIAL ONE (08:12)
[2018-10-02] MEDS ORDERED: Metoprolol Succinate XL TAB* 25 MG PO SCH (09:00)
[2018-10-02] MEDS ORDERED: BuPROPion XL* 150 MG TAB.XL PO SCH (09:00)
[2018-10-02] MEDS ORDERED: Potassium Chlor TAB* 20 MEQ TAB.ER PO SCH (09:00)
[2018-10-02] MEDS: Insulin LISPRO* 1 UNITS UNIT SUBCUT SCH ×4 (09:20→21:26)
--- NOTE | 2018-10-02 09:24 | ECHO ---
Patient: ABIMBOLA KU [facility] Rec#: [id number] : 1950 Date: 10/02/2018 Age: 67y Height: 165 cm / 65.0 in Weight: 91 kg / 200.6 lbs Sex: M BSA: 1.98 Room#: [facility] Admit Date#: 10/01/2018 Type: Inpatient Referring: John Knapp MD Reading: Migue Rico MD Electrical And Instrumentation Mechanic: Gila ColbyJUAN ANTONIO CC: Michele Wallace MD Transthoracic Echocardiogram Indication: Chest pain BP: 119/76 HR: 81 Rhythm: NSR Findings History: CAD s/p PCI, malignant pancreatic cancer with chemotherapy, HTN, HLD, DM, former smoker. Technical Comments: The study is technically limited due to poor parasternal windows. The study is technically limited due to patient body habitus. Completed at 0845. Left Ventricle: The left ventricular chamber size is normal. Moderate concentric left ventricular hypertrophy is observed. There are multiple regional wall motion abnormalities. There is moderately decreased left ventricular systolic function. The estimated ejection fraction is 35-40%. apical/inferior/anterior septal hypokinesis. Abnormal left ventricular diastolic function is observed. There is an E to A reversal in the mitral valve flow pattern suggestive of diastolic dysfunction. Left Atrium: The left atrial chamber size is normal. Right Ventricle: Moderator Band present. The right ventricle is mildly dilated. The right ventricular global systolic function is moderately reduced. Right Atrium: The right atrial cavity size is normal. Aortic Valve: The aortic valve is trileaflet. There is no evidence of aortic valve thickening. There is no evidence of aortic regurgitation. There is no evidence of aortic stenosis. Mitral Valve: The mitral valve leaflets are mildly thickened. There is a trace of mitral regurgitation. There is no evidence of mitral stenosis. Tricuspid Valve: The tricuspid valve leaflets are normal. There is trace tricuspid regurgitation. Unable to estimate the right ventricular systolic pressure. There is no tricuspid stenosis. Pulmonic Valve: The pulmonic valve appears normal. There is a trace pulmonic regurgitation. There is no pulmonic stenosis. Pericardium: There is a small pericardial effusion. There are no signs of significant hemodynamic compromise. The pericardial effusion is seen adjacent to the left ventricle. Aorta: There is mild dilatation of the ascending aorta. There is no dilatation of the aortic arch. The aortic root is normal in size. Pulmonary Artery: The main pulmonary artery is not well visualized. Venous: The inferior vena cava appears normal in size. There is a greater than 50% respiratory change in the inferior vena cava dimension. Contrast: Definity was used to optimize study. 3 mL of diluted Definity were utilized. Intravenous contrast was used to enhance endocardial border definition. Summary: There are changes noted when compared to the previous study done on 05/01/2018, LV EF is much less now from greater than 70% then. Wall motion abnormalities are new. Conclusions The left ventricular chamber size is normal. Moderate concentric left ventricular hypertrophy is observed. There are multiple regional wall motion abnormalities. The estimated ejection fraction is 35-40%. apical/inferior/anterior septal hypokinesis. Abnormal left ventricular diastolic function is observed. There is a trace of mitral regurgitation. There is trace tricuspid regurgitation. There is a trace pulmonic regurgitation. There is a small pericardial effusion. There are no signs of significant hemodynamic compromise. There is mild dilatation of the ascending aorta. There are changes noted when compared to the previous study done on 05/01/2018, LV EF is much less now from greater than 70% then. Wall motion abnormalities are new. Measurements Name Value Normal Range RVIDd (AP) 2D 3.9 cm (0.9 - 2.6) RVDdMajor (2D) 4.5 cm (2.2 - 4.4) RAd ISD 4CH 4.8 cm (3.4 - 4.9) RA (A4C)W 3.8 cm (2.9 - 4.6) IVSd (2D) 1.3 cm (0.6 - 1) LVPWd (2D) 1.3 cm (0.6 - 1) LVIDd (2D) 3.6 cm (3.6 - 5.4) LVIDs (2D) 2.9 cm - LV FS (2D) 20 % (25 - 45) Aortic Annulus 2.1 cm (1.4 - 2.6) Ao root diameter (2D) 3.5 cm (2.1 - 3.5) Ascending Ao 3.6 cm (2.1 - 3.4) Aortic arch 2.8 cm (1.8 - 3.4) LA dimension (AP) 2D 3.5 cm (2.3 - 3.8) LAd ISD 4CH 5.1 cm (2.9 - 5.3) LA ISD 4CH W 4.6 cm (2.5 - 4.5) Name Value Normal Range LA ESV BP (A/L) index 26 ml/m2 - Name Value Normal Range MV E-wave Vmax 0.5 m/sec - MV deceleration time 215 msec - MV A-wave Vmax 0.8 m/sec - MV E:A ratio 0.5 ratio - LV septal e' Vmax 0.05 m/sec - LV lateral e' Vmax 0.07 m/sec - LV E:e' septal ratio 10 ratio - LV E:e' lateral ratio 7.1 ratio - Name Value Normal Range AV Vmax 1 m/sec - AV VTI 21 cm - AV peak gradient 4 mmHg - AV mean gradient 3 mmHg - LVOT Vmax 1 m/sec - LVOT VTI 19 cm - LVOT peak gradient 4 mmHg - LVOT mean gradient 2 mmHg - KINA Vmax 0.8 m/sec - Name Value Normal Range IVC diameter 2 cm - Name Value Normal Range PV Vmax 0.6 m/sec - PV peak gradient 1 mmHg -
[2018-10-02] MEDS: Morphine TAB Extended Release (*) 30 MG TAB.ER PO SCH ×2 (10:14→20:54)
[2018-10-02] MEDS: Insulin GLARGINE(*) 1 UNITS UNIT SUBCUT SCH (10:14)
[2018-10-02] MEDS: Aspirin EC TAB* 81 MG TAB.EC PO SCH (10:14)
[2018-10-02] MEDS: Metoprolol Tartrate TAB* 25 MG PO SCH ×2 (10:14→20:54)
[2018-10-02 11:51] LABS: Creatine Kinase 1329 U/L (10-223)
[2018-10-02 11:51] LABS: Creatine Kinase 1314 U/L (10-223)
[2018-10-02 11:52] LABS: Creatine Kinase 1215 U/L (10-223)
[2018-10-02 11:58] LABS: CKMB ng/mL > 298.0 ng/mL (0.6-6.3)
[2018-10-02 11:59] LABS: CKMB ng/mL 80.4 ng/mL (0.6-6.3)
[2018-10-02 12:00] LABS: CKMB ng/mL > 298.0 ng/mL (0.6-6.3)
[2018-10-02 12:00] LABS: CKMB ng/mL > 298.0 ng/mL (0.6-6.3)
[2018-10-02 12:00] LABS: CKMB ng/mL 251.3 ng/mL (0.6-6.3)
[2018-10-02] MEDS: Atorvastatin* 80 MG TAB PO SCH (12:14)
[2018-10-02] MEDS: Ticagrelor* 90 MG TAB PO SCH ×2 (12:14→20:54)
[2018-10-02] MEDS: Torsemide TAB* 20 MG PO SCH ×2 (12:14→20:54)
[2018-10-02] MEDS: Pioglitazone TAB* 15 MG PO SCH (12:15)
[2018-10-02] MEDS: BuPROPion XL* 300 MG TAB.XL PO SCH (12:48)
[2018-10-02 14:09] LABS: CKMB ng/mL 190.2 ng/mL (0.6-6.3)
[2018-10-02 14:17] LABS: Troponin I 56.42 ng/mL (<0.04)
--- NOTE | 2018-10-02 14:28 | PN ---
Subjective Date of Service: 10/02/18 Interval History: No more arm pain. R chest wall pain improved. Slept poorly due to being in ICU. No SOB. Family History: Findings - unremarkable Social History: Findings - Lives with his who is his SDM. Past Medical History: Findings - Cardiac stents 07/2017, finished ticagrelor a few weeks ago. Met pancreatic ca, malignant pleural effusion and multiple lung mets. DM Objective Active Medications: Aspirin (Aspirin Ec Tab*) 81 mg PO DAILY [facility] Last Admin: 10/02/18 10:14 Dose: 81 mg Atorvastatin Calcium (Lipitor*) 80 mg PO DAILY [facility] Last Admin: 10/02/18 12:14 Dose: 80 mg Benzonatate (Tessalon Cap*) 100 mg PO TID PRN PRN Reason: COUGH Last Admin: 10/02/18 00:26 Dose: 100 mg Bupropion HCl (Bupropion Xl*) 300 mg PO DAILY [facility] Last Admin: 10/02/18 12:48 Dose: 300 mg Dextrose (D50w Syringe 50 Ml*) 12.5 gm IV PUSH .FOR FS < 60 - SS PRN PRN Reason: FS < 60 Heparin Sodium (Porcine) (Heparin Vial(*)) 0 units IV .FOR BOLUSES PRN PRN Reason: HEPARIN DRIP BOLUSES Last Admin: 10/02/18 03:31 Dose: 4,000 units Heparin Sodium/Dextrose (Heparin Drip 25,000 Units(*)) 25,000 units in 500 mls @ 0 mls/hr IV PER RATE [facility]; Protocol Last Admin: 10/01/18 18:48 Dose: 20 mls/hr Insulin Glargine (Lantus(*)) 20 units SUBCUT Q24H [facility] Last Admin: 10/02/18 10:14 Dose: 20 unit Insulin Human Lispro (Humalog*) 0 units SUBCUT ACHS [facility]; Protocol Last Admin: 10/02/18 12:47 Dose: 2 unit Levothyroxine Sodium (Synthroid Tab*) 75 mcg PO DAILY@0600 [facility] Last Admin: 10/02/18 06:02 Dose: 75 mcg Lisinopril (Prinivil Tab*) 2.5 mg PO DAILY [facility] Metoprolol Tartrate (Lopressor Tab*) 25 mg PO BID [facility] Last Admin: 10/02/18 10:14 Dose: 25 mg Metoprolol Tartrate (Lopressor Iv*) 5 mg IV Q2H PRN PRN Reason: BLOOD PRESSURE Morphine Sulfate (Ms Contin(*)) 30 mg PO Q12H [facility] Last Admin: 10/02/18 10:14 Dose: 30 mg Nitroglycerin (Nitroglycerin Tab 0.4 Mg*) 0.4 mg SL Q5M PRN PRN Reason: PAIN - CHEST Oxycodone HCl (Oxycontin(*)) 20 mg PO Q3H PRN PRN Reason: PAIN Pioglitazone HCl (Actos Tab*) 45 mg PO DAILY [facility] Last Admin: 10/02/18 12:15 Dose: 45 mg Prochlorperazine (Compazine Tab*) 10 mg PO Q6HR PRN PRN Reason: NAUSEA/VOMITING Last Admin: 10/01/18 20:37 Dose: 10 mg Ticagrelor (Brilinta*) 90 mg PO BID [facility] Last Admin: 10/02/18 12:14 Dose: 90 mg Torsemide (Demadex*) 20 mg PO BID [facility] Last Admin: 10/02/18 12:14 Dose: 20 mg Vital Signs - 8 hr 10/02/18 10/02/18 10/02/18 06:30 06:45 07:00 Temperature Pulse Rate 85 78 83 Respiratory 20 28 17 Rate Blood Pressure 85/60 120/72 (mmHg) O2 Sat by Pulse 96 95 96 Oximetry 10/02/18 10/02/18 10/02/18 07:01 07:15 07:30 Temperature 97.4 F Pulse Rate 82 78 86 Respiratory 19 20 17 Rate Blood Pressure 120/84 111/69 114/66 (mmHg) O2 Sat by Pulse 96 95 96 Oximetry 10/02/18 10/02/18 10/02/18 07:45 08:00 08:01 Temperature Pulse Rate 82 80 82 Respiratory 26 27 23 Rate Blood Pressure 106/60 99/58 (mmHg) O2 Sat by Pulse 96 96 96 Oximetry 10/02/18 10/02/18 10/02/18 08:15 08:30 08:45 Temperature Pulse Rate 79 81 85 Respiratory 26 20 Rate Blood Pressure 108/61 107/57 117/77 (mmHg) O2 Sat by Pulse 96 96 96 Oximetry 10/02/18 10/02/18 10/02/18 09:00 09:16 09:30 Temperature Pulse Rate 88 84 82 Respiratory 25 23 29 Rate Blood Pressure 112/70 125/75 117/70 (mmHg) O2 Sat by Pulse 96 95 95 Oximetry 10/02/18 10/02/18 10/02/18 09:45 10:00 10:01 Temperature Pulse Rate 81 82 83 Respiratory 27 9 9 Rate Blood Pressure 97/52 100/41 (mmHg) O2 Sat by Pulse 96 95 95 Oximetry 10/02/18 10/02/18 10/02/18 10:15 10:30 10:45 Temperature Pulse Rate 87 92 88 Respiratory 25 17 4 Rate Blood Pressure 97/72 111/71 120/68 (mmHg) O2 Sat by Pulse 96 97 95 Oximetry 10/02/18 10/02/18 10/02/18 11:00 11:01 11:15 Temperature Pulse Rate 90 88 89 Respiratory 24 28 5 Rate Blood Pressure 118/80 114/71 (mmHg) O2 Sat by Pulse 96 95 94 Oximetry 10/02/18 10/02/18 10/02/18 11:23 11:31 11:45 Temperature 97.6 F Pulse Rate 83 80 Respiratory 28 21 Rate Blood Pressure 117/72 97/53 (mmHg) O2 Sat by Pulse 94 95 Oximetry 10/02/18 10/02/18 10/02/18 12:00 12:01 12:15 Temperature Pulse Rate 78 78 76 Respiratory 10 23 15 Rate Blood Pressure 113/73 111/68 (mmHg) O2 Sat by Pulse 96 95 95 Oximetry 10/02/18 10/02/18 10/02/18 12:30 12:45 13:00 Temperature Pulse Rate 75 77 77 Respiratory 12 10 20 Rate Blood Pressure 107/68 106/60 115/74 (mmHg) O2 Sat by Pulse 97 95 95 Oximetry 10/02/18 13:01 Temperature Pulse Rate 76 Respiratory 19 Rate Blood Pressure (mmHg) O2 Sat by Pulse 96 Oximetry Oxygen Devices in Use Now: Nasal Cannula Appearance: Alert, partly up in bed. In good spirits. Looks comfortable. Eyes: No Scleral Icterus Respiratory: Symmetrical Chest Expansion and Respiratory Effort, Clear to Auscultation, Clear to Percussion Cardiovascular: NL Sounds; No Murmurs; No JVD, RRR, No Edema, - Extremities: No Edema, No Clubbing, Cyanosis, - Skin: No Rash or Ulcers, No Nodules or Sclerosis, - Neurological: Alert and Oriented x 3, NL Sensation Result Diagrams: 10/02/18 05:55 10/01/18 20:51 Microbiology and Other Data: Microbiology 10/01/18 19:57 Nasal Screen MRSA (PCR) - Final Nasal Mrsa Not Detected Assess/Plan/Problems-Billing Assessment: - Patient Problems (1) CAD (coronary artery disease) Current Visit: Yes Status: Acute Code(s): I25.10 - ATHSCL HEART DISEASE OF [place] CORONARY ARTERY W/O ANG PCTRS SNOMED Code(s): 59269524 Comment: AMI, pain-moises as of late 10/01. Continue heparin for 48 hrs total. LVEF 35-40%, start lisinopril 10/02 PM. Continue BB, torsemide. Stop KCL as K+ up to 5.4. Stop IV NTG. If BP goes up could increase BB, ACEI, or both. (2) Pancreatic cancer Current Visit: Yes Status: Acute Comment: Doing well on increased dose of MS ER 30 mg bid, continue oxycodone PRN. Discussed again with Dr. Nicole 10/02. (3) Diabetes Current Visit: Yes Status: Acute Code(s): E11.9 - TYPE 2 DIABETES MELLITUS WITHOUT COMPLICATIONS SNOMED Code(s): 19365577 Comment: Substitute Lantus for levemir, same dose. Lispro by SS. (4) Hypothyroid Current Visit: Yes Status: Acute Code(s): E03.9 - HYPOTHYROIDISM, UNSPECIFIED SNOMED Code(s): 80788765 Comment: Continue levothyroxine. TSH wnl 05/19/2018.
--- NOTE | 2018-10-02 14:32 | CONS ---
CONSULTATION REPORT: DATE OF CONSULT: 10/02/18 ATTENDING PHYSICIAN: Dr. Rico. PRIMARY STRINGS TEACHER: Dr. Moy. PRIMARY SPLICING SUPERVISOR/ONCOLOGIST: Dr. Kim Villegas PRIMARY PHYSICIAN: Dr. Wallace. CHIEF COMPLAINT: Left arm pain radiating into the left anterior chest with associated dizziness. HISTORY OF PRESENT ILLNESS: This is a pleasant 67-year-old male patient who follows Dr. Moy for his cardiac care. He has a notable history of coronary artery disease with history of drug eluting stents x2 to right coronary artery in 2017 with known residual mid LAD 70% lesion and 50% OM2 lesion. He is also being treated by Dr. Kim Villegas for metastatic pancreatic cancer into pleura, on palliative chemotherapy (mFOLFOX). Patient presented to [facility] on 10/01/18 at 3 p.m. due to ongoing complaints of left arm pain. According to the patient, in the last 1 to 2 weeks, he has been having a violent cough with clear sputum production. He denies fever, chills, nausea, vomiting, diarrhea or chest pain. He states historically, his anginal equivalent was burning chest pain and he has had no reoccurrence. He actually saw primary continuous conveyor screen drier, Dr. Moy a week ago and was instructed to stop Brilinta therapy given 1 year anniversary since cardiac stents. The patient states he did in fact stop Brilinta approximately 5 to 7 days ago. Yesterday at 10:30 morning, he developed sudden onset of left arm pressure radiating into the left anterior chest with associated dizziness. He actually was evaluated by Leisa Albarran NP at the hematology/oncology office and given symptomatology and abnormal EKG, with elevated troponin level, he was referred to the emergency department for further evaluation. While being evaluated in the emergency department, EKG was obtained, which revealed sinus tachycardia rate 106 with known right bundle branch block, occasional PVC with anterior T-wave depression, new inferior Q waves. He was risk stratified for PE with V/Q scan, which revealed intermediate probability for PE. Troponin was 4.28. Thus, he was admitted to the ICU for ACS and placed on IV heparin and nitroglycerin therapy. The patient states that left arm pain resolved around 8:30 p.m. with administration of IV nitroglycerin. He has had no recurrent pain since then. He is currently asymptomatic and offers no complaints at this time. EKG this morning reveals sinus rhythm rate 80 with right bundle branch block and new Q- waves in the anterior leads suggestive of anterior CT. PAST MEDICAL HISTORY: 1. Coronary artery disease. 2. Metastatic pancreatic cancer into pleura. 3. Asthma. 4. Type 2 diabetes mellitus. 5. Hyperlipidemia. 6. Hypertension. 7. Melanoma. 8. Bipolar disorder. 9. Chronic kidney disease with baseline creatinine of 1.6 to 1.8. PAST SURGICAL HISTORY: 1. Pleur-evac, 04/24/18 due to malignant right pleural effusion. 2. Drug eluting stent placement x2 to right coronary artery in 2016. Drug- eluting stents were Synergy 4.0 mm x 24 mm, Synergy 4.0 mm x 24 mm. 3. Lumbar laminectomy. 4. Shoulder surgery. HOME MEDICATIONS: 1. Actos 1 tablet a day. 2. Aspirin 81 mg a day. 3. Bupropion extended release 300 mg a day. 4. Compazine 10 mg p.o. q.6h. p.r.n. 5. Crestor 40 mg a day. 6. Demadex 20 mg p.o. as directed. 7. Humalog KwikPen as directed. 8. Levemir 20 units subcu daily. 9. Magnesium 400 mg p.o. b.i.d. 10. Toprol XL 25 mg a day. 11. Multivitamin 1 tablet a day. 12. K-Dur 40 mEq daily. 13. mFolfox Chemotherapy. ALLERGIES: 1. FENTANYL PATCH. 2. IV CONTRAST DYE, which reportedly causes hives. 3. NEURONTIN. 4. NORTRIPTYLINE. 5. PENICILLIN. FAMILY HISTORY: Patient's mother at the age of 74 due to complications of cancer. Patient's father at the age of 70 due to pancreatic cancer. SOCIAL HISTORY: The patient is , lives at home with his . Former tobacco user, quit 45 years ago. Denies alcohol abuse. Occasionally utilizes marijuana, otherwise denies other illegal drug use. REVIEW OF SYSTEMS: All systems have been reviewed and otherwise negative except as above mentioned in the HPI. PHYSICAL EXAM: Vital Signs: Pulse is 83, respirations 23, oxygenation 95% on 2 L nasal cannula, blood pressure 125/75. General: The patient is alert and oriented x3, cooperative with exam, appears well nourished, in no apparent distress. However, he does have difficulty recalling certain information. HEENT : Head is atraumatic, normocephalic. Oral mucosa is moist. Tongue is midline. Neck: Supple. Trachea midline. No JVD. No carotid bruit. Cardiac: Normal S1, S2. Regular rate and rhythm. No murmur, gallop or rub noted. Lungs: Inspiratory crackles noted in right lower lobe, otherwise, no other adventitious breath sounds auscultated. /GI: Abdomen is protuberant, nontender. Normoactive bowel sounds x4. Extremities: No pedal edema, no clubbing, no cyanosis. Peripheral Vascular: 2+ brachial and dorsalis pedis pulse palpated bilaterally and symmetrically. Skin: Intact. No evidence of jaundice, rash or ecchymosis appreciated. DIAGNOSTIC STUDIES/LAB DATA: Blood work, sodium is 133, potassium is 5.4, chloride 103, carbon dioxide 22, BUN 43, creatinine 1.6, glucose 248. White count 14.1, hemoglobin 10.8, hematocrit 34, platelets 288, troponin #5 is 57.08 (has not peaked). Echocardiogram, 10/01/18, LVEF 35% to 40% with moderate LVH, there were multiple regional wall motion abnormalities, trace mitral regurgitation, trace tricuspid regurgitation, trace pulmonic regurgitation. Chest x-ray 10/01/18, progressive volume loss and interstitial infiltrate within the right lung, probable small right pleural effusion, reported by Radiology. ASSESSMENT AND PLAN: 1. Gkm-LL-pebimvdpo myocardial infarction symptoms. States he had sudden onset of left arm pressure radiating to the left anterior chest at 10:30 a.m. on 10/01/18. Symptomatology resolved with administration of IV nitroglycerin at 8:30 p.m. last night with no reoccurrence of symptoms. Troponin has not peaked , troponin #5 is 57. Echocardiogram reveals multiple regional wall motion abnormalities with LVEF reduction of 35%, prior EF was 65% in 05/01/18. EKG revealed biphasic anterior T- wave abnormalities on 10/01/18, suggestive of possible Wellens syndrome. However, this morning's EKG revealed new anterior Q- waves. He is on IV heparin therapy, IV nitroglycerin therapy, aspirin, Brilinta and Lopressor therapy and again is asymptomatic at this current time. We will continue to cycle isoenzymes. Case will be discussed with Dr. Mirza Bryson, health educator about potential left heart catheterization. Please note that the patient has chronic kidney disease, baseline creatinine is 1.6 to 1.7, thus creatinine today appears reflective of baseline. He reports a prior history of requiring blood transfusions in the past year. After review of medical records, it appears during April of 2018, he had anemia secondary to bone marrow suppression from his chemotherapy agent. Hemoglobin went as low as 6.7. Denies any history of hematochezia or melena and he had previously been tolerating aspirin and Brilinta therapy. We will follow closely. The patient has known residual 70% mid LAD lesion and 50% OM lesion. Patient was day 2/3 mfolfox administration with symptomatology started. mfolfox can cause CT, coronary spasms, thrombosis. mfolfox was stopped yesterday in the office prior to arriving to [facility]> 2. History of coronary artery disease. On aspirin, statin, beta-blockade and Brilinta therapy at this current time. 3. History of metastatic pancreatic cancer into pleura. On palliative chemotherapy agents, last infusion was started Friday09/30/18 and discontinued 10/01/2017 due to above #1, followed by Dr. Kim Villegas. 4. History of chronic kidney disease. Creatinine today is 1.6, appears reflective of baseline. 5. CONTRAST DYE allergy. The patient states he was premedicated by Dr. Moy a year ago for left heart catheterization, states that allergy reaction is rash. If he requires left heart catheterization, this will have to be addressed with premedication. 6. Ischemic cardiomyopathy, LVEF 35%, likely due to above #1. This is a new finding compared to prior echo in April 2018. He is compensated at this current time on beta-blockade therapy. We will not initiate EMANI inhibitor therapy at this time due to potentially needing left heart catheterization, although this should be addressed prior to discharge. 7. Disposition. Pending course. The patient states he is a full code and wants full measures. We will await Dr. Bryson's input in regards to left heart catheterization and follow closely. Please do not hesitate to contact our service with any future questions or concerns. TAY PAUL NP [id number]/[facility] #: [id number] [place]
--- NOTE | 2018-10-02 15:48 | PN ---
Progress Note - Progress Note Date of Service: 10/02/18 SOAP: Subjective: [Reports L arm pain has resolved. No SOB. No new complaints today. ] Objective: [ Laboratory Results - last 24 hr 10/01/18 10/01/18 10/01/18 17:14 17:14 17:14 WBC 19.2 H RBC 4.49 Hgb 11.5 L Hct 36 L MCV 80 MCH 26 L MCHC 32 RDW 20 H Plt Count 303 MPV 7.4 Neut % (Auto) Lymph % (Auto) [place] % (Auto) Eos % (Auto) Baso % (Auto) Absolute Neuts (auto) Absolute Lymphs (auto) Absolute Monos (auto) Absolute Eos (auto) Absolute Basos (auto) Absolute Nucleated RBC Nucleated RBC % INR (Anticoag Therapy) 0.98 APTT 25.9 L Sodium 133 L Potassium 5.4 H Chloride 103 Carbon Dioxide 22 Anion Gap 8 BUN 42 H Creatinine 1.61 H Est GFR ( Amer) 51.9 Est GFR (Non-Af Amer) 42.9 BUN/Creatinine Ratio 26.1 H Glucose 248 H POC Glucose (mg/dL) Calcium 8.8 Total Bilirubin 0.30 AST 44 H ALT 14 Alkaline Phosphatase 72 Total Creatine Kinase 397 H CK-MB (CK-2) 80.4 H Troponin I 4.28 H* Total Protein 6.1 L Albumin 3.4 Globulin 2.7 Albumin/Globulin Ratio 1.3 10/01/18 10/01/18 10/01/18 20:42 20:51 20:51 WBC RBC Hgb Hct MCV MCH MCHC RDW Plt Count MPV Neut % (Auto) Lymph % (Auto) [place] % (Auto) Eos % (Auto) Baso % (Auto) Absolute Neuts (auto) Absolute Lymphs (auto) Absolute Monos (auto) Absolute Eos (auto) Absolute Basos (auto) Absolute Nucleated RBC Nucleated RBC % INR (Anticoag Therapy) APTT 58.4 H Sodium Potassium Chloride Carbon Dioxide Anion Gap BUN 43 H Creatinine 1.63 H Est GFR ( Amer) 51.2 Est GFR (Non-Af Amer) 42.3 BUN/Creatinine Ratio Glucose POC Glucose (mg/dL) 195 H Calcium Total Bilirubin AST ALT Alkaline Phosphatase Total Creatine Kinase 1010 H CK-MB (CK-2) 251.3 H Troponin I 19.84 H* Total Protein Albumin Globulin Albumin/Globulin Ratio 10/01/18 10/01/18 10/02/18 20:51 23:59 02:20 WBC 18.2 H RBC 4.35 Hgb 11.2 L Hct 35 L MCV 80 MCH 26 L MCHC 32 RDW 19 H Plt Count 310 MPV 7.4 Neut % (Auto) 87.2 Lymph % (Auto) 4.4 [place] % (Auto) 6.6 Eos % (Auto) 1.2 Baso % (Auto) 0.6 Absolute Neuts (auto) 15.9 H Absolute Lymphs (auto) 0.8 L Absolute Monos (auto) 1.2 H Absolute Eos (auto) 0.2 Absolute Basos (auto) 0.1 Absolute Nucleated RBC 0 Nucleated RBC % 0 INR (Anticoag Therapy) APTT 30.5 Sodium Potassium Chloride Carbon Dioxide Anion Gap BUN Creatinine Est GFR ( Amer) Est GFR (Non-Af Amer) BUN/Creatinine Ratio Glucose POC Glucose (mg/dL) Calcium Total Bilirubin AST ALT Alkaline Phosphatase Total Creatine Kinase 1329 H CK-MB (CK-2) > 298.0 H Troponin I 30.65 H* Total Protein Albumin Globulin Albumin/Globulin Ratio 10/02/18 10/02/18 10/02/18 02:20 05:55 05:55 WBC 14.1 H RBC 4.24 Hgb 10.8 L Hct 34 L MCV 80 MCH 26 L MCHC 32 RDW 20 H Plt Count 288 MPV 7.7 Neut % (Auto) 85.7 Lymph % (Auto) 5.9 [place] % (Auto) 6.0 Eos % (Auto) 2.0 Baso % (Auto) 0.4 Absolute Neuts (auto) 12.1 H Absolute Lymphs (auto) 0.8 L Absolute Monos (auto) 0.8 Absolute Eos (auto) 0.3 Absolute Basos (auto) 0.1 Absolute Nucleated RBC 0 Nucleated RBC % 0 INR (Anticoag Therapy) APTT Sodium Potassium Chloride Carbon Dioxide Anion Gap BUN Creatinine Est GFR ( Amer) Est GFR (Non-Af Amer) BUN/Creatinine Ratio Glucose POC Glucose (mg/dL) Calcium Total Bilirubin AST ALT Alkaline Phosphatase Total Creatine Kinase 1314 H 1215 H CK-MB (CK-2) > 298.0 H > 298.0 H Troponin I 44.30 H* 57.08 H* Total Protein Albumin Globulin Albumin/Globulin Ratio 10/02/18 10/02/18 10/02/18 08:55 09:13 12:06 WBC RBC Hgb Hct MCV MCH MCHC RDW Plt Count MPV Neut % (Auto) Lymph % (Auto) [place] % (Auto) Eos % (Auto) Baso % (Auto) Absolute Neuts (auto) Absolute Lymphs (auto) Absolute Monos (auto) Absolute Eos (auto) Absolute Basos (auto) Absolute Nucleated RBC Nucleated RBC % INR (Anticoag Therapy) APTT 80.9 H Sodium Potassium Chloride Carbon Dioxide Anion Gap BUN Creatinine Est GFR ( Amer) Est GFR (Non-Af Amer) BUN/Creatinine Ratio Glucose POC Glucose (mg/dL) 163 H 169 H Calcium Total Bilirubin AST ALT Alkaline Phosphatase Total Creatine Kinase CK-MB (CK-2) Troponin I Total Protein Albumin Globulin Albumin/Globulin Ratio 10/02/18 13:06 WBC RBC Hgb Hct MCV MCH MCHC RDW Plt Count MPV Neut % (Auto) Lymph % (Auto) [place] % (Auto) Eos % (Auto) Baso % (Auto) Absolute Neuts (auto) Absolute Lymphs (auto) Absolute Monos (auto) Absolute Eos (auto) Absolute Basos (auto) Absolute Nucleated RBC Nucleated RBC % INR (Anticoag Therapy) APTT Sodium Potassium Chloride Carbon Dioxide Anion Gap BUN Creatinine Est GFR ( Amer) Est GFR (Non-Af Amer) BUN/Creatinine Ratio Glucose POC Glucose (mg/dL) Calcium Total Bilirubin AST ALT Alkaline Phosphatase Total Creatine Kinase 845 H CK-MB (CK-2) 190.2 H Troponin I 56.42 H* Total Protein Albumin Globulin Albumin/Globulin Ratio Aspirin (Aspirin Ec Tab*) 81 mg PO DAILY [facility] Last Admin: 10/02/18 10:14 Dose: 81 mg Atorvastatin Calcium (Lipitor*) 80 mg PO DAILY [facility] Last Admin: 10/02/18 12:14 Dose: 80 mg Benzonatate (Tessalon Cap*) 100 mg PO TID PRN PRN Reason: COUGH Last Admin: 10/02/18 00:26 Dose: 100 mg Bupropion HCl (Bupropion Xl*) 300 mg PO DAILY [facility] Last Admin: 10/02/18 12:48 Dose: 300 mg Dextrose (D50w Syringe 50 Ml*) 12.5 gm IV PUSH .FOR FS < 60 - SS PRN PRN Reason: FS < 60 Heparin Sodium (Porcine) (Heparin Vial(*)) 0 units IV .FOR BOLUSES PRN PRN Reason: HEPARIN DRIP BOLUSES Last Admin: 10/02/18 03:31 Dose: 4,000 units Heparin Sodium/Dextrose (Heparin Drip 25,000 Units(*)) 25,000 units in 500 mls @ 0 mls/hr IV PER RATE [facility]; Protocol Last Admin: 10/01/18 18:48 Dose: 20 mls/hr Insulin Glargine (Lantus(*)) 20 units SUBCUT Q24H [facility] Last Admin: 10/02/18 10:14 Dose: 20 unit Insulin Human Lispro (Humalog*) 0 units SUBCUT ACHS [facility]; Protocol Last Admin: 10/02/18 12:47 Dose: 2 unit Levothyroxine Sodium (Synthroid Tab*) 75 mcg PO DAILY@0600 [facility] Last Admin: 10/02/18 06:02 Dose: 75 mcg Lisinopril (Prinivil Tab*) 2.5 mg PO DAILY [facility] Metoprolol Tartrate (Lopressor Tab*) 25 mg PO BID [facility] Last Admin: 10/02/18 10:14 Dose: 25 mg Metoprolol Tartrate (Lopressor Iv*) 5 mg IV Q2H PRN PRN Reason: BLOOD PRESSURE Morphine Sulfate (Ms Contin(*)) 30 mg PO Q12H [facility] Last Admin: 10/02/18 10:14 Dose: 30 mg Nitroglycerin (Nitroglycerin Tab 0.4 Mg*) 0.4 mg SL Q5M PRN PRN Reason: PAIN - CHEST Oxycodone HCl (Oxycontin(*)) 20 mg PO Q3H PRN PRN Reason: PAIN Pioglitazone HCl (Actos Tab*) 45 mg PO DAILY [facility] Last Admin: 10/02/18 12:15 Dose: 45 mg Prochlorperazine (Compazine Tab*) 10 mg PO Q6HR PRN PRN Reason: NAUSEA/VOMITING Last Admin: 10/01/18 20:37 Dose: 10 mg Ticagrelor (Brilinta*) 90 mg PO BID [facility] Last Admin: 10/02/18 12:14 Dose: 90 mg Torsemide (Demadex*) 20 mg PO BID [facility] Last Admin: 10/02/18 12:14 Dose: 20 mg Vital Signs: Temp Pulse Resp BP Pulse Ox 97.6 F 81 0 115/67 93 10/02/18 11:23 10/02/18 15:30 10/02/18 15:30 10/02/18 15:30 10/02/18 15:30 Exam: Gen: Chronically ill but relatively well appearing 67 yo male in NAD, accompanied by his HEENT: MMM, no thrush CV: RRR, no m/r/g Resp: CTA, no w/c/r Abd: soft, nonTTP Ext: no edema] Assessment: [67 yo male with metastatic pancreatic CA currently treated with FOLFOX who presented with acute L arm pain during 5FU infusion. Referred to the ER from the oncology office with initial troponin of 0.3. Intermediate VQ scan, but no perfusion defects in the L lung field, all abnormalities on the R. Trending troponin demonstrated rapid rise in troponin and he was subsequently transferred to ICU and anticoagulated with a heparin drip and nitroglycerin drip started for persistent angina.] Plan: [1. NSTEMI - spoke with floorworker distributor and general cardiology team at length regarding management decisions - Dr Loving is concerned about the risk of bleeding associated with cardiac catheterization in the setting of metastatic disease and questions whether stenting the offending vessel would improve his cardiac function and quality of life given the prognosis of his pancreatic cancer - indications to pursue cardiac cath and subsequent stenting would be recurrent angina despite maximum medical therapy, need to confirm there is no ASSOC[employer] disease present prior to cardiac cath as this is an absolute contraindication - spoke with patient at length and he and his are in agreement with medical therapy at this time - he is currently asymptomatic - echo demonstrates EF of 35% with new wall motion abnormalities of the anterior , apical and inferior segments - medical therapy as directed by cardiology 2. Metastatic pancreatic CA - recently treated with FOLFOX, but additional 5FU based therapy is contraindicated given acute cardiac event - briefly reviewed principals of Hospice, will discuss treatment options in more detail with Dr Villegas - MRI brain to ensure no [employer] disease in the event cardiac cath is indicated for recurrent angina 3. IDDM 4. Hypothyroidism Spent 45 min face to face, >50% spent in counseling]
[2018-10-02] MEDS: Lisinopril TAB* 5 MG PO SCH (15:54)
[2018-10-02] MEDS: Prochlorperazine TAB* 10 MG PO PRN (15:54)
[2018-10-02] MEDS: Heparin DRIP 25,000 UNITS(*) 25,000 UNITS/500 ML BAG IV SCH (15:56)
[2018-10-02] MEDS ORDERED: Gadoteridol* (CONTRAST) 279.3 MG/ML 10 ML IV ONE (17:24)
[2018-10-02] MEDS: oxyCODONE SR TAB(*) 20 MG TAB.SR PO PRN (18:10)
[2018-10-03] MEDS: oxyCODONE SR TAB(*) 20 MG TAB.SR PO PRN (05:40)
[2018-10-03] MEDS: Levothyroxine TAB* 75 MCG TAB PO SCH (05:41)
[2018-10-03 06:43] LABS: ABS Basophils 0 10^3/ul (0-0.2); ABS Eosinophils 0.2 10^3/ul (0-0.6); ABS Lymphocytes 0.8 10^3/ul (1.0-4.8); ABS Monocytes 0.7 10^3/ul (0-0.8); ABS Neutrophils 7.8 10^3/ul (1.5-7.7); ABS Nucleated RBC 0 10^3/ul; Eosinophil % 1.6 %; Hematocrit 33 % (42-52); Hemoglobin 10.9 g/dl (14.0-18.0); Lymphocyte % 8.1 %; Mean Corpuscular HGB Conc 33 g/dl (31-36); Mean Corpuscular Hemoglobin 26 pg (27-31); Mean Corpuscular Volume 80 fL (80-94); Mean Platelet Volume 7.7 fL (7.4-10.4); Nucleated Red Blood Cells % 0.1; Platelet Count 302 10^3/ul (150-450); Red Blood Count 4.19 10^6/ul (4.00-5.40); Red Cell Distribution Width 20 % (10.5-15); White Blood Count 9.4 10^3/ul (3.5-10.8)
[2018-10-03 06:54] LABS: BUN/Creatinine Ratio 28.5 (8-20); Calcium 8.6 mg/dL (8.6-10.3); EGFR African American 50.4 (>60); EGFR Non-African American 41.7 (>60); Potassium 4.5 mmol/L (3.5-5.0)
--- NOTE | 2018-10-03 08:50 | PN ---
Subjective Date of Service: 10/03/18 Interval History: Patient had some LEFT shoulder soreness earlier today. This responded to oxycodone. Denies chest pain. States breathing is OK today. He has some appetite, but needs to avoid cold liquids due to chemo side effects. He is aware of NE, aware of decision to make re invasive vs medical management strategy. He is in favor of medical therapy at this time. Family History: Findings - unremarkable Social History: Findings - Lives with his who is his SDM. Past Medical History: Findings - Cardiac stents 07/2017, finished ticagrelor a few weeks ago. Met pancreatic ca, malignant pleural effusion and multiple lung mets. DM Objective Active Medications: Aspirin (Aspirin Ec Tab*) 81 mg PO DAILY [facility] Last Admin: 10/02/18 10:14 Dose: 81 mg Atorvastatin Calcium (Lipitor*) 80 mg PO DAILY [facility] Last Admin: 10/02/18 12:14 Dose: 80 mg Benzonatate (Tessalon Cap*) 100 mg PO TID PRN PRN Reason: COUGH Last Admin: 10/02/18 22:27 Dose: 100 mg Bupropion HCl (Bupropion Xl*) 300 mg PO DAILY [facility] Last Admin: 10/02/18 12:48 Dose: 300 mg Dextrose (D50w Syringe 50 Ml*) 12.5 gm IV PUSH .FOR FS < 60 - SS PRN PRN Reason: FS < 60 Heparin Sodium/Dextrose (Heparin Drip 25,000 Units(*)) 25,000 units in 500 mls @ 0 mls/hr IV PER RATE [facility]; Protocol Last Admin: 10/02/18 15:56 Dose: 23 mls/hr Insulin Glargine (Lantus(*)) 20 units SUBCUT Q24H [facility] Last Admin: 10/02/18 10:14 Dose: 20 unit Insulin Human Lispro (Humalog*) 0 units SUBCUT ACHS [facility]; Protocol Last Admin: 10/02/18 21:26 Dose: Not Given Levothyroxine Sodium (Synthroid Tab*) 75 mcg PO DAILY@0600 [facility] Last Admin: 10/03/18 05:41 Dose: 75 mcg Lisinopril (Prinivil Tab*) 2.5 mg PO DAILY [facility] Last Admin: 10/02/18 15:54 Dose: 2.5 mg Metoprolol Tartrate (Lopressor Tab*) 25 mg PO BID [facility] Last Admin: 10/02/18 20:54 Dose: 25 mg Metoprolol Tartrate (Lopressor Iv*) 5 mg IV Q2H PRN PRN Reason: BLOOD PRESSURE Morphine Sulfate (Ms Contin(*)) 30 mg PO Q12H [facility] Last Admin: 10/02/18 20:54 Dose: 30 mg Nitroglycerin (Nitroglycerin Tab 0.4 Mg*) 0.4 mg SL Q5M PRN PRN Reason: PAIN - CHEST Oxycodone HCl (Oxycontin(*)) 20 mg PO Q3H PRN PRN Reason: PAIN Last Admin: 10/03/18 05:40 Dose: 20 mg Pioglitazone HCl (Actos Tab*) 45 mg PO DAILY [facility] Last Admin: 10/02/18 12:15 Dose: 45 mg Prochlorperazine (Compazine Tab*) 10 mg PO Q6HR PRN PRN Reason: NAUSEA/VOMITING Last Admin: 10/02/18 15:54 Dose: 10 mg Ticagrelor (Brilinta*) 90 mg PO BID [facility] Last Admin: 10/02/18 20:54 Dose: 90 mg Torsemide (Demadex*) 20 mg PO BID [facility] Last Admin: 10/02/18 20:54 Dose: 20 mg Vital Signs - 8 hr 10/03/18 10/03/18 10/03/18 06:01 07:00 07:01 Temperature Pulse Rate 80 81 83 Respiratory 15 19 20 Rate Blood Pressure 111/69 98/61 (mmHg) O2 Sat by Pulse 98 97 96 Oximetry 10/03/18 10/03/18 10/03/18 07:39 08:00 08:01 Temperature 35.8 C Pulse Rate 83 87 Respiratory 23 27 Rate Blood Pressure 104/59 (mmHg) O2 Sat by Pulse 96 96 Oximetry Oxygen Devices in Use Now: Nasal Cannula Appearance: alert, no distress Eyes: No Scleral Icterus Ears/Nose/Mouth/Throat: Clear Oropharnyx Neck: No Thyroid Enlargement, Masses Respiratory: Symmetrical Chest Expansion and Respiratory Effort, Clear to Percussion, - - rales right upper lung field Cardiovascular: NL Sounds; No Murmurs; No JVD, RRR Abdominal: NL Sounds; No Tenderness; No Distention, No Hepatosplenomegaly Lymphatic: No Cervical Adenopathy Extremities: No Edema, - Skin: - - linear area of erythema and nodularity in RT 10-12 rib area anterior/ lateral Neurological: Alert and Oriented x 3 Lines/Tubes/Other Access: Clean, Dry and Intact Peripheral IV Nutrition: Taking PO's Result Diagrams: 10/03/18 06:20 10/03/18 06:20 Additional Lab and Data: Laboratory Tests 10/02/18 10/02/18 10/02/18 09:13 13:06 18:15 APTT 80.9 H 65.9 H Total Creatine Kinase 845 H CK-MB (CK-2) 190.2 H Troponin I 56.42 H* 10/03/18 10/03/18 00:30 06:20 APTT 71.4 H 49.3 H Total Creatine Kinase CK-MB (CK-2) Troponin I Microbiology and Other Data: Microbiology 10/01/18 19:57 Nasal Screen MRSA (PCR) - Final Nasal Mrsa Not Detected Diagnostic Imaging: Brain MRI: no metastasis Assess/Plan/Problems-Billing Assessment: 67 year old with metastatic pancreatic cancer, and CAD w/ stenting 1 year ago, who came in with NSTEMI after stopping Brillinta. - Patient Problems (1) Pancreatic cancer Current Visit: Yes Status: Acute Priority: High Comment: -discussed with Dr. Villegas -5FU may have precipitated NE -plan is no further chemotherapy, home with hospice Friday (2) NSTEMI (non-ST elevation myocardial infarction) Current Visit: Yes Status: Acute Priority: High Code(s): I21.4 - NON-ST ELEVATION (NSTEMI) MYOCARDIAL INFARCTION SNOMED Code(s): 39509745 Comment: -Non-STEMI due to known residual CAD, and finishing 1 year of Brillinta, with possible contributing of 5FU, which can precipitate NE -Plan is for medical management, will confirm with Dr. Rico -Continue heparin, is having high PTT on 1150/hr, low PTT on 950/hr, will use 1050 for now. (3) Type 2 diabetes mellitus Current Visit: Yes Status: Acute Priority: Low Comment: -diabetes in good control -continue Lantus, sliding scale (4) DVT prophylaxis Current Visit: Yes Status: Acute Priority: Low Code(s): QOE3252 - SNOMED Code(s): 173051200 Comment: -on IV heparin Status and Disposition: can move to medical floor from ICU, home with hospice in 2 days. Counseling and/or Coordination of Care Minutes: discussed w/ Dr. Villegas, will discuss with Dr. Rico.
[2018-10-03] MEDS ORDERED: Heparin DRIP 25,000 UNITS(*) 25,000 UNITS/500 ML BAG IV SCH (09:00)
[2018-10-03] MEDS ORDERED: Heparin VIAL(*) 5000 UNITS/ML VIAL (FIVE THOUSAND) IV SCH (09:00)
--- NOTE | 2018-10-03 09:10 | PN ---
Progress Note - Progress Note Date of Service: 10/03/18 SOAP: Subjective: feeling better this am. no further left sided pain. Objective: Vital Signs Temp Pulse Resp BP Pulse Ox 96.4 F 87 27 104/59 96 10/03/18 07:39 10/03/18 08:01 10/03/18 08:01 10/03/18 08:00 10/03/18 08:01 sitting up in nad perr eomi op moist bilateral crackles studding along right chest wall s1 s2 nl obese nt +bs chronic stasis changes A+O x 3, nonfocal neurological Laboratory Results - last 24 hr 10/01/18 10/01/18 10/01/18 17:14 20:51 23:59 WBC RBC Hgb Hct MCV MCH MCHC RDW Plt Count MPV Neut % (Auto) Lymph % (Auto) Marin % (Auto) Eos % (Auto) Baso % (Auto) Absolute Neuts (auto) Absolute Lymphs (auto) Absolute Monos (auto) Absolute Eos (auto) Absolute Basos (auto) Absolute Nucleated RBC Nucleated RBC % APTT Sodium 133 L Potassium 5.4 H Chloride 103 Carbon Dioxide 22 Anion Gap 8 BUN 42 H 43 H Creatinine 1.61 H 1.63 H Est GFR ( Amer) 51.9 51.2 Est GFR (Non-Af Amer) 42.9 42.3 BUN/Creatinine Ratio 26.1 H Glucose 248 H POC Glucose (mg/dL) Calcium 8.8 Total Bilirubin 0.30 AST 44 H ALT 14 Alkaline Phosphatase 72 Total Creatine Kinase 397 H 1010 H 1329 H CK-MB (CK-2) 80.4 H 251.3 H > 298.0 H Troponin I 4.28 H* 19.84 H* 30.65 H* Total Protein 6.1 L Albumin 3.4 Globulin 2.7 Albumin/Globulin Ratio 1.3 10/02/18 10/02/18 10/02/18 02:20 05:55 08:55 WBC RBC Hgb Hct MCV MCH MCHC RDW Plt Count MPV Neut % (Auto) Lymph % (Auto) Marin % (Auto) Eos % (Auto) Baso % (Auto) Absolute Neuts (auto) Absolute Lymphs (auto) Absolute Monos (auto) Absolute Eos (auto) Absolute Basos (auto) Absolute Nucleated RBC Nucleated RBC % APTT Sodium Potassium Chloride Carbon Dioxide Anion Gap BUN Creatinine Est GFR ( Amer) Est GFR (Non-Af Amer) BUN/Creatinine Ratio Glucose POC Glucose (mg/dL) 163 H Calcium Total Bilirubin AST ALT Alkaline Phosphatase Total Creatine Kinase 1314 H 1215 H CK-MB (CK-2) > 298.0 H > 298.0 H Troponin I 44.30 H* 57.08 H* Total Protein Albumin Globulin Albumin/Globulin Ratio 10/02/18 10/02/18 10/02/18 09:13 12:06 13:06 WBC RBC Hgb Hct MCV MCH MCHC RDW Plt Count MPV Neut % (Auto) Lymph % (Auto) Marin % (Auto) Eos % (Auto) Baso % (Auto) Absolute Neuts (auto) Absolute Lymphs (auto) Absolute Monos (auto) Absolute Eos (auto) Absolute Basos (auto) Absolute Nucleated RBC Nucleated RBC % APTT 80.9 H Sodium Potassium Chloride Carbon Dioxide Anion Gap BUN Creatinine Est GFR ( Amer) Est GFR (Non-Af Amer) BUN/Creatinine Ratio Glucose POC Glucose (mg/dL) 169 H Calcium Total Bilirubin AST ALT Alkaline Phosphatase Total Creatine Kinase 845 H CK-MB (CK-2) 190.2 H Troponin I 56.42 H* Total Protein Albumin Globulin Albumin/Globulin Ratio 10/02/18 10/02/18 10/02/18 18:15 18:15 20:54 WBC RBC Hgb Hct MCV MCH MCHC RDW Plt Count MPV Neut % (Auto) Lymph % (Auto) Marin % (Auto) Eos % (Auto) Baso % (Auto) Absolute Neuts (auto) Absolute Lymphs (auto) Absolute Monos (auto) Absolute Eos (auto) Absolute Basos (auto) Absolute Nucleated RBC Nucleated RBC % APTT 65.9 H Sodium Potassium Chloride Carbon Dioxide Anion Gap BUN Creatinine Est GFR ( Amer) Est GFR (Non-Af Amer) BUN/Creatinine Ratio Glucose POC Glucose (mg/dL) 134 H 122 H Calcium Total Bilirubin AST ALT Alkaline Phosphatase Total Creatine Kinase CK-MB (CK-2) Troponin I Total Protein Albumin Globulin Albumin/Globulin Ratio 10/03/18 10/03/18 10/03/18 00:30 06:20 06:20 WBC 9.4 RBC 4.19 Hgb 10.9 L Hct 33 L MCV 80 MCH 26 L MCHC 33 RDW 20 H Plt Count 302 MPV 7.7 Neut % (Auto) 82.9 Lymph % (Auto) 8.1 Marin % (Auto) 7.1 Eos % (Auto) 1.6 Baso % (Auto) 0.3 Absolute Neuts (auto) 7.8 H Absolute Lymphs (auto) 0.8 L Absolute Monos (auto) 0.7 Absolute Eos (auto) 0.2 Absolute Basos (auto) 0 Absolute Nucleated RBC 0 Nucleated RBC % 0.1 APTT 71.4 H Sodium 135 Potassium 4.5 Chloride 100 L Carbon Dioxide 26 Anion Gap 9 BUN 47 H Creatinine 1.65 H Est GFR ( Amer) 50.4 Est GFR (Non-Af Amer) 41.7 BUN/Creatinine Ratio 28.5 H Glucose 150 H POC Glucose (mg/dL) Calcium 8.6 Total Bilirubin AST ALT Alkaline Phosphatase Total Creatine Kinase CK-MB (CK-2) Troponin I Total Protein Albumin Globulin Albumin/Globulin Ratio 10/03/18 06:20 WBC RBC Hgb Hct MCV MCH MCHC RDW Plt Count MPV Neut % (Auto) Lymph % (Auto) Marin % (Auto) Eos % (Auto) Baso % (Auto) Absolute Neuts (auto) Absolute Lymphs (auto) Absolute Monos (auto) Absolute Eos (auto) Absolute Basos (auto) Absolute Nucleated RBC Nucleated RBC % APTT 49.3 H Sodium Potassium Chloride Carbon Dioxide Anion Gap BUN Creatinine Est GFR ( Amer) Est GFR (Non-Af Amer) BUN/Creatinine Ratio Glucose POC Glucose (mg/dL) Calcium Total Bilirubin AST ALT Alkaline Phosphatase Total Creatine Kinase CK-MB (CK-2) Troponin I Total Protein Albumin Globulin Albumin/Globulin Ratio Aspirin (Aspirin Ec Tab*) 81 mg PO DAILY [facility] Last Admin: 10/02/18 10:14 Dose: 81 mg Atorvastatin Calcium (Lipitor*) 80 mg PO DAILY [facility] Last Admin: 10/02/18 12:14 Dose: 80 mg Benzonatate (Tessalon Cap*) 100 mg PO TID PRN PRN Reason: COUGH Last Admin: 10/02/18 22:27 Dose: 100 mg Bupropion HCl (Bupropion Xl*) 300 mg PO DAILY [facility] Last Admin: 10/02/18 12:48 Dose: 300 mg Dextrose (D50w Syringe 50 Ml*) 12.5 gm IV PUSH .FOR FS < 60 - SS PRN PRN Reason: FS < 60 Heparin Sodium (Porcine) (Heparin Vial(*)) 0 units IV .FOR BOLUSES PRN PRN Reason: HEPARIN DRIP BOLUSES Last Admin: 10/02/18 03:31 Dose: 4,000 units Heparin Sodium/Dextrose (Heparin Drip 25,000 Units(*)) 25,000 units in 500 mls @ 0 mls/hr IV PER RATE [facility]; Protocol Last Admin: 10/02/18 15:56 Dose: 23 mls/hr Heparin Sodium/Dextrose (Heparin Drip 25,000 Units(*)) 25,000 units in 500 mls @ 21 mls/hr IV .PROTOCOL [facility]; Protocol Stop: 10/03/18 13:00 Insulin Glargine (Lantus(*)) 20 units SUBCUT Q24H [facility] Last Admin: 10/02/18 10:14 Dose: 20 unit Insulin Human Lispro (Humalog*) 0 units SUBCUT ACHS [facility]; Protocol Last Admin: 10/02/18 21:26 Dose: Not Given Levothyroxine Sodium (Synthroid Tab*) 75 mcg PO DAILY@0600 [facility] Last Admin: 10/03/18 05:41 Dose: 75 mcg Lisinopril (Prinivil Tab*) 2.5 mg PO DAILY [facility] Last Admin: 10/02/18 15:54 Dose: 2.5 mg Metoprolol Tartrate (Lopressor Tab*) 25 mg PO BID [facility] Last Admin: 10/02/18 20:54 Dose: 25 mg Metoprolol Tartrate (Lopressor Iv*) 5 mg IV Q2H PRN PRN Reason: BLOOD PRESSURE Morphine Sulfate (Ms Contin(*)) 30 mg PO Q12H [facility] Last Admin: 10/02/18 20:54 Dose: 30 mg Nitroglycerin (Nitroglycerin Tab 0.4 Mg*) 0.4 mg SL Q5M PRN PRN Reason: PAIN - CHEST Oxycodone HCl (Oxycontin(*)) 20 mg PO Q3H PRN PRN Reason: PAIN Last Admin: 10/03/18 05:40 Dose: 20 mg Pioglitazone HCl (Actos Tab*) 45 mg PO DAILY [facility] Last Admin: 10/02/18 12:15 Dose: 45 mg Prochlorperazine (Compazine Tab*) 10 mg PO Q6HR PRN PRN Reason: NAUSEA/VOMITING Last Admin: 10/02/18 15:54 Dose: 10 mg Ticagrelor (Brilinta*) 90 mg PO BID [facility] Last Admin: 10/02/18 20:54 Dose: 90 mg Torsemide (Demadex*) 20 mg PO BID [facility] Last Admin: 10/02/18 20:54 Dose: 20 mg Assessment: 67 yo M w metastatic pancreatic cancer on palliative FOLFOX with known CAD presenting with NSTEMI in the setting of recent cessation of brilinta and 5fu chemotherapy. We discussed this at length. Given his very poor prognosis from his pancreatic cancer he has appropriately opted for medical management of his WA. We discussed that he has a poor performance status and is not a clinical trial candidate. Even prior to this line of chemotherapy we discussed potential hospice. Now with his WA, poor PS, and lack of good alternative chemotherapy regimens I have strongly recommended hospice and he is in agreement. We discussed continuing to medically manage his WA over the weekend with plan for home with hospice on Friday. He will be DNR/DNI and upon discharge comfort measures only.
[2018-10-03] MEDS: Insulin LISPRO* 1 UNITS UNIT SUBCUT SCH ×4 (09:21→21:09)
[2018-10-03] MEDS ORDERED: oxyCODONE TAB* 5 MG TAB ONE (09:23)
[2018-10-03] MEDS: Morphine TAB Extended Release (*) 30 MG TAB.ER PO SCH ×2 (09:35→21:09)
[2018-10-03] MEDS: Torsemide TAB* 20 MG PO SCH ×2 (09:35→21:09)
[2018-10-03] MEDS: Atorvastatin* 80 MG TAB PO SCH (09:35)
[2018-10-03] MEDS: Ticagrelor* 90 MG TAB PO SCH ×2 (09:35→21:09)
[2018-10-03] MEDS: Insulin GLARGINE(*) 1 UNITS UNIT SUBCUT SCH (09:36)
[2018-10-03] MEDS: Aspirin EC TAB* 81 MG TAB.EC PO SCH (09:36)
[2018-10-03] MEDS: Pioglitazone TAB* 15 MG PO SCH (09:40)
[2018-10-03] MEDS: Lisinopril TAB* 5 MG PO SCH (11:16)
[2018-10-03] MEDS: Metoprolol Tartrate TAB* 25 MG PO SCH ×2 (11:18→20:14)
[2018-10-03] MEDS: BuPROPion XL* 300 MG TAB.XL PO SCH (11:25)
[2018-10-03] MEDS: Prochlorperazine TAB* 10 MG PO PRN (14:24)
[2018-10-03] MEDS: oxyCODONE TAB* 5 MG TAB PO PRN (17:53)
[2018-10-03] MEDS: Heparin DRIP 25,000 UNITS(*) 25,000 UNITS/500 ML BAG IV SCH (21:04)
[2018-10-03] MEDS ORDERED: Lisinopril TAB* 5 MG PO SCH (22:17)
[2018-10-04] MEDS: oxyCODONE TAB* 5 MG TAB PO PRN ×6 (02:04→23:57)
[2018-10-04] MEDS: Levothyroxine TAB* 75 MCG TAB PO SCH (06:27)
[2018-10-04 07:12] LABS: ABS Basophils 0 10^3/ul (0-0.2); ABS Eosinophils 0.1 10^3/ul (0-0.6); ABS Lymphocytes 0.8 10^3/ul (1.0-4.8); ABS Monocytes 0.7 10^3/ul (0-0.8); ABS Neutrophils 10.1 10^3/ul (1.5-7.7); ABS Nucleated RBC 0 10^3/ul; Eosinophil % 0.7 %; Hematocrit 32 % (42-52); Hemoglobin 10.5 g/dl (14.0-18.0); Lymphocyte % 6.7 %; Mean Corpuscular HGB Conc 32 g/dl (31-36); Mean Corpuscular Hemoglobin 26 pg (27-31); Mean Corpuscular Volume 79 fL (80-94); Mean Platelet Volume 8.1 fL (7.4-10.4); Nucleated Red Blood Cells % 0; Platelet Count 314 10^3/ul (150-450); Red Blood Count 4.07 10^6/ul (4.00-5.40); Red Cell Distribution Width 20 % (10.5-15); White Blood Count 11.7 10^3/ul (3.5-10.8)
[2018-10-04 07:33] LABS: Albumin 2.9 g/dL (3.2-5.2); BUN/Creatinine Ratio 28.8 (8-20); Calcium 8.8 mg/dL (8.6-10.3); EGFR African American 39.3 (>60); EGFR Non-African American 32.5 (>60); Globulin 2.8 g/dL (2-4); Potassium 4.6 mmol/L (3.5-5.0); Total Bilirubin 0.5 mg/dL (0.2-1.0); Total Protein 5.7 g/dL (6.4-8.9)
[2018-10-04 07:41] LABS: Troponin I 17.95 ng/mL (<0.04)
[2018-10-04] MEDS: Pioglitazone TAB* 15 MG PO SCH (08:13)
[2018-10-04] MEDS: Insulin LISPRO* 1 UNITS UNIT SUBCUT SCH ×4 (08:14→20:41)
[2018-10-04] MEDS: Insulin GLARGINE(*) 1 UNITS UNIT SUBCUT SCH (08:14)
[2018-10-04] MEDS: Torsemide TAB* 20 MG PO SCH ×2 (08:19→20:57)
[2018-10-04] MEDS: Atorvastatin* 80 MG TAB PO SCH (08:19)
[2018-10-04] MEDS: BuPROPion XL* 300 MG TAB.XL PO SCH (08:19)
[2018-10-04] MEDS: Aspirin EC TAB* 81 MG TAB.EC PO SCH (08:20)
[2018-10-04] MEDS: Morphine TAB Extended Release (*) 30 MG TAB.ER PO SCH ×2 (08:20→20:43)
[2018-10-04] MEDS: Metoprolol Tartrate TAB* 25 MG PO SCH ×2 (08:20→20:42)
[2018-10-04] MEDS: Ticagrelor* 90 MG TAB PO SCH ×2 (08:20→20:42)
[2018-10-04] MEDS: Benzonatate CAP* 100 MG PO PRN ×2 (08:27→14:09)
--- NOTE | 2018-10-04 15:55 | PN ---
Subjective Date of Service: 10/04/18 Interval History: Patient has some choking and cold sensation when drinking anything cool. Now has thik-it in water. Denies chest pain. Feels dizzy all the time, worse when walking to bathroom, feels pre-syncopal. BP meds held today. Family History: Unchanged from Admission - unremarkable Social History: Unchanged from Admission - Lives with his who is his SDM. Past Medical History: Unchanged from Admission - Cardiac stents 07/2017, finished ticagrelor a few weeks ago. Met pancreatic ca, malignant pleural effusion and multiple lung mets. DM Objective Active Medications: Aspirin (Aspirin Ec Tab*) 81 mg PO DAILY [facility] Last Admin: 10/04/18 08:20 Dose: 81 mg Atorvastatin Calcium (Lipitor*) 80 mg PO DAILY [facility] Last Admin: 10/04/18 08:19 Dose: 80 mg Benzonatate (Tessalon Cap*) 100 mg PO TID PRN PRN Reason: COUGH Last Admin: 10/04/18 14:09 Dose: 100 mg Bupropion HCl (Bupropion Xl*) 300 mg PO DAILY [facility] Last Admin: 10/04/18 08:19 Dose: 300 mg Dextrose (D50w Syringe 50 Ml*) 12.5 gm IV PUSH .FOR FS < 60 - SS PRN PRN Reason: FS < 60 Insulin Glargine (Lantus(*)) 20 units SUBCUT Q24H [facility] Last Admin: 10/04/18 08:14 Dose: 20 unit Insulin Human Lispro (Humalog*) 0 units SUBCUT ACHS [facility]; Protocol Last Admin: 10/04/18 12:57 Dose: 2 unit Levothyroxine Sodium (Synthroid Tab*) 75 mcg PO DAILY@0600 [facility] Last Admin: 10/04/18 06:27 Dose: 75 mcg Metoprolol Tartrate (Lopressor Tab*) 25 mg PO BID [facility] Last Admin: 10/04/18 08:20 Dose: Not Given Morphine Sulfate (Ms Contin(*)) 30 mg PO Q12H [facility] Last Admin: 10/04/18 08:20 Dose: 30 mg Nitroglycerin (Nitroglycerin Tab 0.4 Mg*) 0.4 mg SL Q5M PRN PRN Reason: PAIN - CHEST Oxycodone HCl (Roxycodone Tab*) 10 mg PO Q3H PRN PRN Reason: PAIN - MODERATE TO SEVERE Last Admin: 10/04/18 12:57 Dose: 10 mg Pioglitazone HCl (Actos Tab*) 45 mg PO DAILY [facility] Last Admin: 10/04/18 08:13 Dose: 45 mg Prochlorperazine (Compazine Tab*) 10 mg PO Q6HR PRN PRN Reason: NAUSEA/VOMITING Last Admin: 10/03/18 14:24 Dose: 10 mg Ticagrelor (Brilinta*) 90 mg PO BID [facility] Last Admin: 10/04/18 08:20 Dose: 90 mg Torsemide (Demadex*) 20 mg PO BID [facility] Last Admin: 10/04/18 08:19 Dose: Not Given Vital Signs - 8 hr 10/04/18 10/04/18 10/04/18 08:00 08:20 08:21 Temperature 36.6 C Pulse Rate 105 Respiratory 20 18 18 Rate Blood Pressure 92/48 (mmHg) O2 Sat by Pulse 93 Oximetry 10/04/18 10/04/18 10/04/18 08:31 11:26 12:57 Temperature Pulse Rate 103 Respiratory 16 22 16 Rate Blood Pressure 93/57 (mmHg) O2 Sat by Pulse 92 Oximetry Oxygen Devices in Use Now: Nasal Cannula Appearance: alert, no distress Eyes: No Scleral Icterus Ears/Nose/Mouth/Throat: Clear Oropharnyx Neck: Trachea Midline Respiratory: - - rales RT base Cardiovascular: NL Sounds; No Murmurs; No JVD Abdominal: NL Sounds; No Tenderness; No Distention Lymphatic: No Cervical Adenopathy Neurological: Alert and Oriented x 3 Lines/Tubes/Other Access: Clean, Dry and Intact Peripheral IV Nutrition: Taking PO's - Nutrition: Malnutrition Diagnosis/Plan Malnutrition Assessment by Registered Dietitian: Malnutrition Assessment Clinical Characteristics Chronic,Moderate Malnutrition Assessment: - 16% wt loss x ~ 5 months Criteria - < 75% estimated energy expenditure > 1 month Malnutrition Assessment: - Discussed importance of adequate protein Interventions intake (pt dislikes hospital food) - Will offer an oral nutritional supplement if PO becomes consistently < 75% of meals Malnutrition Assessment: Goals 1. Recommed liberalizing diet 2. Adequate PO intake to prevent additional undesired wt loss Result Diagrams: 10/04/18 06:10 10/04/18 06:10 Additional Lab and Data: Laboratory Tests 10/03/18 10/04/18 10/04/18 20:18 02:30 06:10 APTT 95.6 H POC Glucose (mg/dL) 138 H Troponin I 17.95 H* Albumin 2.9 L 10/04/18 10/04/18 10/04/18 07:53 10:30 11:42 APTT 67.0 H POC Glucose (mg/dL) 153 H 175 H Troponin I Albumin Diagnostic Imaging: Brain MRI: no metastasis Assess/Plan/Problems-Billing Assessment: 67 year old with metastatic pancreatic cancer, and CAD w/ stenting 1 year ago, who came in with NSTEMI after stopping Brillinta. - Patient Problems (1) Pancreatic cancer Current Visit: Yes Status: Acute Priority: High Comment: -plan is no further treatment, hospice eval Friday -5FU may have precipitated [place] (2) NSTEMI (non-ST elevation myocardial infarction) Current Visit: Yes Status: Acute Priority: High Code(s): I21.4 - NON-ST ELEVATION (NSTEMI) MYOCARDIAL INFARCTION SNOMED Code(s): 80573103 Comment: -Non-STEMI due to known residual CAD -Plan is for medical management, will confirm with Dr. Rico -Stop heparin, no clear benefit at this point. Hold BP lowering agents due to symptoms of orthostasis. (3) Type 2 diabetes mellitus Current Visit: Yes Status: Acute Priority: Medium Comment: -diabetes in good control -continue Lantus, sliding scale (4) DVT prophylaxis Current Visit: Yes Status: Acute Priority: Low Code(s): PUB6210 - SNOMED Code(s): 547673099 Comment: -will start SCDs (5) Dysphagia Current Visit: Yes Status: Acute Priority: Medium Code(s): R13.10 - DYSPHAGIA, UNSPECIFIED SNOMED Code(s): 67228639 Comment: -new issue, may be related to thoracic mets -will have swallowing eval to prevent aspiration, give advice. Status and Disposition: inpatient, home with hospice in 1-2 days.
[2018-10-04] MEDS: NS 0.9% 1000 ML* 1,000 ML IV SCH (16:44)
[2018-10-05] MEDS: oxyCODONE TAB* 5 MG TAB PO PRN (03:00)
[2018-10-05] MEDS: Levothyroxine TAB* 75 MCG TAB PO SCH (05:06)
[2018-10-05 05:53] LABS: BUN/Creatinine Ratio 27.2 (8-20); Calcium 8.9 mg/dL (8.6-10.3); EGFR African American 32.3 (>60); EGFR Non-African American 26.7 (>60); Magnesium 2.4 mg/dL (1.9-2.7); Potassium 4.9 mmol/L (3.5-5.0)
[2018-10-05 06:01] LABS: Troponin I 20.84 ng/mL (<0.04)
[2018-10-05] MEDS: Metoprolol Tartrate TAB* 25 MG PO SCH ×2 (07:16→21:11)
[2018-10-05] MEDS ORDERED: Metoprolol Tartrate IV* 1 MG/ML 5 ML VIAL IV ONE (08:00)
--- NOTE | 2018-10-05 08:22 | PN ---
Progress Note - Progress Note Date of Service: 10/05/18 SOAP: Subjective: asymptomatic VT right now. feels better today than over weekend. no chest pain. Objective: Vital Signs Temp Pulse Resp BP Pulse Ox 97.4 F 64 18 100/54 94 10/05/18 03:26 10/05/18 07:09 10/05/18 07:09 10/05/18 07:09 10/05/18 07:09 sitting up in NAD, A+O x 3 Aspirin (Aspirin Ec Tab*) 81 mg PO DAILY [facility] Last Admin: 10/04/18 08:20 Dose: 81 mg Atorvastatin Calcium (Lipitor*) 80 mg PO DAILY [facility] Last Admin: 10/04/18 08:19 Dose: 80 mg Benzonatate (Tessalon Cap*) 100 mg PO TID PRN PRN Reason: COUGH Last Admin: 10/04/18 14:09 Dose: 100 mg Bupropion HCl (Bupropion Xl*) 300 mg PO DAILY [facility] Last Admin: 10/04/18 08:19 Dose: 300 mg Dextrose (D50w Syringe 50 Ml*) 12.5 gm IV PUSH .FOR FS < 60 - SS PRN PRN Reason: FS < 60 Sodium Chloride (Ns 0.9% 1000 Ml*) 1,000 mls @ 60 mls/hr IV .PER RATE [facility] Last Admin: 10/04/18 16:44 Dose: 60 mls/hr Insulin Glargine (Lantus(*)) 20 units SUBCUT Q24H [facility] Last Admin: 10/04/18 08:14 Dose: 20 unit Insulin Human Lispro (Humalog*) 0 units SUBCUT ACHS [facility]; Protocol Last Admin: 10/04/18 20:41 Dose: 1 unit Levothyroxine Sodium (Synthroid Tab*) 75 mcg PO DAILY@0600 [facility] Last Admin: 10/05/18 05:06 Dose: 75 mcg Metoprolol Tartrate (Lopressor Tab*) 25 mg PO BID [facility] Last Admin: 10/05/18 07:16 Dose: 25 mg Morphine Sulfate (Ms Contin(*)) 30 mg PO Q12H [facility] Last Admin: 10/04/18 20:43 Dose: 30 mg Morphine Sulfate (Morphine Oral Concentrate*) 10 mg PO Q2H PRN PRN Reason: PAIN Nitroglycerin (Nitroglycerin Tab 0.4 Mg*) 0.4 mg SL Q5M PRN PRN Reason: PAIN - CHEST Oxycodone HCl (Roxycodone Tab*) 10 mg PO Q3H PRN PRN Reason: PAIN - MODERATE TO SEVERE Last Admin: 10/05/18 03:00 Dose: 10 mg Pioglitazone HCl (Actos Tab*) 45 mg PO DAILY [facility] Last Admin: 10/04/18 08:13 Dose: 45 mg Prochlorperazine (Compazine Tab*) 10 mg PO Q6HR PRN PRN Reason: NAUSEA/VOMITING Last Admin: 10/03/18 14:24 Dose: 10 mg Ticagrelor (Brilinta*) 90 mg PO BID [facility] Last Admin: 10/04/18 20:42 Dose: 90 mg Torsemide (Demadex*) 20 mg PO BID [facility] Last Admin: 10/04/18 20:57 Dose: Not Given Assessment: 67 yo M w metastatic pancreatic cancer on palliative FOLFOX with known CAD presenting with NSTEMI in the setting of recent cessation of brilinta and 5fu chemotherapy. He is currently in asymptomatic VT. We discussed this at length. Given his very poor prognosis from his pancreatic cancer he has appropriately opted for hospice and [facility]. Given this I have recommended that we NOT treat his VT, as passing from a cardiac arrhythmia would certainly be more peaceful than respiratory distress. He and his are in agreement. We will discontinue telemetry and palliate symptoms only. We discussed discharge home with hospice when they are able to enroll him (we should have services in place on discharge given possible imminent ). We will give morphine for any respiratory distress or chest pain.
[2018-10-05] MEDS: Morphine ORAL CONCENTRATE* 5 MG/0.25 ML ORAL.SYRIN PO PRN ×2 (08:39→21:11)
[2018-10-05] MEDS: Morphine TAB Extended Release (*) 30 MG TAB.ER PO SCH ×2 (08:40→21:10)
[2018-10-05] MEDS: Ticagrelor* 90 MG TAB PO SCH ×2 (08:41→21:11)
[2018-10-05] MEDS: Pioglitazone TAB* 15 MG PO SCH (08:41)
[2018-10-05] MEDS: Atorvastatin* 80 MG TAB PO SCH (08:41)
[2018-10-05] MEDS: BuPROPion XL* 300 MG TAB.XL PO SCH (08:41)
[2018-10-05] MEDS: Aspirin EC TAB* 81 MG TAB.EC PO SCH (08:41)
[2018-10-05] MEDS: Torsemide TAB* 20 MG PO SCH ×2 (08:42→21:10)
[2018-10-05] MEDS: Insulin GLARGINE(*) 1 UNITS UNIT SUBCUT SCH (08:42)
[2018-10-05] MEDS: Insulin LISPRO* 1 UNITS UNIT SUBCUT SCH ×4 (08:42→21:12)
--- NOTE | 2018-10-05 10:29 | CONSULT ---
Palliative / Hospice Consult Ordering Provider: Kim Villegas - PCPEric Wallace - Subjective Code Status: DNR Advance Directives Location: No Advance Directives JAYE Part A Completed: Yes - completed with Dr Bakari CEE Part E Completed:: Yes - completed with Dr. Villegas - History or Present Illness History or Present Illness: 67 yo male with metastatic pancreatic cancer with lung mets presented to ER with with L upper arm pain and was found to be having an FL. He has a history of CAD stent 07/2017 & 70% min LAD and 50% OM lesion, DM, hypothyroidism, asthma , hyperlipidemia, HTN, melanoma, bipolar and CKD (59/2.05) efgr 32.5. He is an ex tob/ no etoh abuse. Echo showed 35-40% diastolic and systolic dysfunction, pleural effusion. MRI brain no lesion. He has lost 10kilo in the last year also tprot 5.7 and alb 2.9. Initially he was admitted to ICU and a full code he had also been receiving chemotherapy with Flofox. As the FL evolved the pt changed to DNR/DNI and has opted for home hospice. Lab Values: Abnormal Lab Results 10/04/18 10/04/18 10/04/18 10:30 11:42 16:47 APTT 67.0 H Sodium Potassium Chloride Carbon Dioxide Anion Gap BUN Creatinine Est GFR ( Amer) Est GFR (Non-Af Amer) BUN/Creatinine Ratio Glucose POC Glucose (mg/dL) 175 H 115 H Calcium Magnesium Troponin I 10/04/18 10/05/18 10/05/18 20:33 04:45 07:59 APTT Sodium 134 L Potassium 4.9 Chloride 100 L Carbon Dioxide 24 Anion Gap 10 BUN 66 H Creatinine 2.43 H Est GFR ( Amer) 32.3 Est GFR (Non-Af Amer) 26.7 BUN/Creatinine Ratio 27.2 H Glucose 156 H POC Glucose (mg/dL) 133 H 165 H Calcium 8.9 Magnesium 2.4 Troponin I 20.84 H* Laboratory Last Values WBC 11.7 10^3/ul (3.5-10.8) H 10/04/18 06:10 RBC 4.07 10^6/ul (4.00-5.40) 10/04/18 06:10 Hgb 10.5 g/dl (14.0-18.0) L 10/04/18 06:10 Hct 32 % (42-52) L 10/04/18 06:10 MCV 79 fL (80-94) L 10/04/18 06:10 MCH 26 pg (27-31) L 10/04/18 06:10 MCHC 32 g/dl (31-36) 10/04/18 06:10 RDW 20 % (10.5-15) H 10/04/18 06:10 Plt Count 314 10^3/ul (150-450) 10/04/18 06:10 MPV 8.1 fL (7.4-10.4) 10/04/18 06:10 Neut % (Auto) 85.9 % 10/04/18 06:10 Lymph % (Auto) 6.7 % 10/04/18 06:10 [place] % (Auto) 6.3 % 10/04/18 06:10 Eos % (Auto) 0.7 % 10/04/18 06:10 Baso % (Auto) 0.4 % 10/04/18 06:10 Absolute Neuts (auto) 10.1 10^3/ul (1.5-7.7) H 10/04/18 06:10 Absolute Lymphs (auto) 0.8 10^3/ul (1.0-4.8) L 10/04/18 06:10 Absolute Monos (auto) 0.7 10^3/ul (0-0.8) 10/04/18 06:10 Absolute Eos (auto) 0.1 10^3/ul (0-0.6) 10/04/18 06:10 Absolute Basos (auto) 0 10^3/ul (0-0.2) 10/04/18 06:10 Absolute Nucleated RBC 0 10^3/ul 10/04/18 06:10 Nucleated RBC % 0 10/04/18 06:10 INR (Anticoag Therapy) 0.98 (0.77-1.02) 10/01/18 17:14 APTT 67.0 seconds (26.0-36.3) H 10/04/18 10:30 Sodium 134 mmol/L (135-145) L 10/05/18 04:45 Potassium 4.9 mmol/L (3.5-5.0) 10/05/18 04:45 Chloride 100 mmol/L (101-111) L 10/05/18 04:45 Carbon Dioxide 24 mmol/L (22-32) 10/05/18 04:45 Anion Gap 10 mmol/L (2-11) 10/05/18 04:45 BUN 66 mg/dL (6-24) H 10/05/18 04:45 Creatinine 2.43 mg/dL (0.67-1.17) H 10/05/18 04:45 Est GFR ( Amer) 32.3 (>60) 10/05/18 04:45 Est GFR (Non-Af Amer) 26.7 (>60) 10/05/18 04:45 BUN/Creatinine Ratio 27.2 (8-20) H 10/05/18 04:45 Glucose 156 mg/dL (70-100) H 10/05/18 04:45 POC Glucose (mg/dL) 165 mg/dL (70-100) H 10/05/18 07:59 Calcium 8.9 mg/dL (8.6-10.3) 10/05/18 04:45 Magnesium 2.4 mg/dL (1.9-2.7) 10/05/18 04:45 Total Bilirubin 0.50 mg/dL (0.2-1.0) 10/04/18 06:10 AST 28 U/L (13-39) 10/04/18 06:10 ALT 15 U/L (7-52) 10/04/18 06:10 Alkaline Phosphatase 67 U/L (34-104) 10/04/18 06:10 Total Creatine Kinase 845 U/L (10-223) H 10/02/18 13:06 CK-MB (CK-2) 190.2 ng/mL (0.6-6.3) H 10/02/18 13:06 Troponin I 20.84 ng/mL (<0.04) H* 10/05/18 04:45 Total Protein 5.7 g/dL (6.4-8.9) L 10/04/18 06:10 Albumin 2.9 g/dL (3.2-5.2) L 10/04/18 06:10 Globulin 2.8 g/dL (2-4) 10/04/18 06:10 Albumin/Globulin Ratio 1.0 (1-3) 10/04/18 06:10 - Objective Active Medications: Aspirin (Aspirin Ec Tab*) 81 mg PO DAILY [facility] Last Admin: 10/05/18 08:41 Dose: 81 mg Atorvastatin Calcium (Lipitor*) 80 mg PO DAILY [facility] Last Admin: 10/05/18 08:41 Dose: 80 mg Benzonatate (Tessalon Cap*) 100 mg PO TID PRN PRN Reason: COUGH Last Admin: 10/04/18 14:09 Dose: 100 mg Bupropion HCl (Bupropion Xl*) 300 mg PO DAILY [facility] Last Admin: 10/05/18 08:41 Dose: 300 mg Dextrose (D50w Syringe 50 Ml*) 12.5 gm IV PUSH .FOR FS < 60 - SS PRN PRN Reason: FS < 60 Sodium Chloride (Ns 0.9% 1000 Ml*) 1,000 mls @ 60 mls/hr IV .PER RATE [facility] Last Admin: 10/04/18 16:44 Dose: 60 mls/hr Insulin Glargine (Lantus(*)) 20 units SUBCUT Q24H [facility] Last Admin: 10/05/18 08:42 Dose: 20 unit Insulin Human Lispro (Humalog*) 0 units SUBCUT ACHS [facility]; Protocol Last Admin: 10/05/18 08:42 Dose: 2 unit Levothyroxine Sodium (Synthroid Tab*) 75 mcg PO DAILY@0600 [facility] Last Admin: 10/05/18 05:06 Dose: 75 mcg Metoprolol Tartrate (Lopressor Tab*) 25 mg PO BID [facility] Last Admin: 10/05/18 07:16 Dose: 25 mg Morphine Sulfate (Ms Contin(*)) 30 mg PO Q12H [facility] Last Admin: 10/05/18 08:40 Dose: 30 mg Morphine Sulfate (Morphine Oral Concentrate*) 10 mg PO Q2H PRN PRN Reason: PAIN Last Admin: 10/05/18 08:39 Dose: 10 mg Nitroglycerin (Nitroglycerin Tab 0.4 Mg*) 0.4 mg SL Q5M PRN PRN Reason: PAIN - CHEST Oxycodone HCl (Roxycodone Tab*) 10 mg PO Q3H PRN PRN Reason: PAIN - MODERATE TO SEVERE Last Admin: 10/05/18 03:00 Dose: 10 mg Pioglitazone HCl (Actos Tab*) 45 mg PO DAILY [facility] Last Admin: 10/05/18 08:41 Dose: 45 mg Prochlorperazine (Compazine Tab*) 10 mg PO Q6HR PRN PRN Reason: NAUSEA/VOMITING Last Admin: 10/03/18 14:24 Dose: 10 mg Ticagrelor (Brilinta*) 90 mg PO BID [facility] Last Admin: 10/05/18 08:41 Dose: 90 mg Torsemide (Demadex*) 20 mg PO BID [facility] Last Admin: 10/05/18 08:42 Dose: Not Given Vital Signs: Vital Signs: Temp Pulse Resp BP Pulse Ox 97.8 F 124 24 120/57 92 10/05/18 07:42 10/05/18 07:42 10/05/18 08:44 10/05/18 07:42 10/05/18 07:42 Patient Weight: Weight 92.2 kg Intake and Output: Intake & Output 10/03/18 10/04/18 10/05/18 10/06/18 06:59 06:59 06:59 06:59 Intake Total 1216 1479.5 930 Output Total 2775 250 Balance -1559 1229.5 930 Weight 92.2 kg Intake: Medicated IV 56 CC - Nitroglycerine/ 56 Tridil Heparin 420 379.5 Oral 740 1100 930 Output: Urine 2775 250 Other: Estimated Void Large Large # Bowel Movements 0 0 # Voids 1 1 ADLs: Meal Record Start: 10/01/18 18: 21 Freq: DAILY@0900,1400,1800 Status: Active Protocol: Created 10/01/18 18:21 System (Rec: 10/01/18 18:21 [id number] 10/03/18 18:00 [id number] (Rec: 10/03/18 18:43 [id number] [facility]-C09) Document 10/04/18 09:00 [id number] (Rec: 10/04/18 14:57 [id number] [facility]-C09) Document 10/04/18 14:00 [id number] (Rec: 10/04/18 14:57 [id number] [facility]-C09) Document 10/04/18 18:00 [id number] (Rec: 10/04/18 19:15 [id number] [facility]-C09) ADLs: Meal Record Start: 10/01/18 21: 05 Freq: 09,13,18 Status: Inactive Protocol: Created 10/01/18 21:05 [id number] (Rec: 10/01/18 21:05 [id number] ICU-C14) Document 10/02/18 13:00 [id number] (Rec: 10/02/18 16:32 [id number] ICU-C06) Document 10/02/18 18:00 [id number] (Rec: 10/02/18 18:29 [id number] ICU-C06) Document 10/03/18 09:30 [id number] (Rec: 10/03/18 12:13 [id number] ICU-C25) Intake and Output Start: 10/01/18 16: 06 Freq: Status: Active Protocol: Created 10/01/18 16:06 System (Rec: 10/01/18 16:06 System ED-C26) Intake and Output Start: 10/01/18 18: 21 Freq: DAILY@0600,1400,2200 Status: Active Protocol: Created 10/01/18 18:21 System (Rec: 10/01/18 18:21 System TELE-C08) Document 10/03/18 22:00 [id number] (Rec: 10/03/18 23:51 [id number] MED-C09) Document 10/04/18 05:12 [id number] (Rec: 10/04/18 05:13 [id number] MED-C09) Document 10/04/18 22:00 [id number] (Rec: 10/04/18 22:50 [id number] MED-C09) Document 10/05/18 04:16 [id number] (Rec: 10/05/18 04:16 IJU5232 MED-C11) Intake and Output Start: 10/01/18 21: 05 Freq: Q1HR Status: Inactive Protocol: Created 10/01/18 21:05 [id number] (Rec: 10/01/18 21:05 [id number] ICU-C14) Document 10/01/18 22:00 [id number] (Rec: 10/02/18 02:43 [id number] ICU-C14) Document 10/01/18 23:00 [id number] (Rec: 10/02/18 02:44 [id number] ICU-C14) Document 10/02/18 00:00 [id number] (Rec: 10/02/18 02:43 [id number] ICU-C14) Document 10/02/18 01:00 [id number] (Rec: 10/02/18 02:43 [id number] ICU-C14) Document 10/02/18 02:00 [id number] (Rec: 10/02/18 02:44 [id number] ICU-C14) Document 10/02/18 03:00 [id number] (Rec: 10/02/18 06:00 [id number] ICU-M23) Document 10/02/18 04:00 [id number] (Rec: 10/02/18 06:00 [id number] ICU-M23) Document 10/02/18 05:00 [id number] (Rec: 10/02/18 06:00 [id number] ICU-M23) Document 10/02/18 06:00 [id number] (Rec: 10/02/18 06:00 [id number] ICU-M23) Document 10/02/18 07:00 [id number] (Rec: 10/02/18 07:38 [id number] ICU-C25) Document 10/02/18 08:00 [id number] (Rec: 10/02/18 08:40 [id number] ICU-M23) Document 10/02/18 09:00 [id number] (Rec: 10/02/18 09:26 [id number] ICU-C25) Document 10/02/18 11:00 [id number] (Rec: 10/02/18 11:21 [id number] ICU-C06) Document 10/02/18 14:00 UHQ1455 (Rec: 10/02/18 14:31 [id number] ICU-C06) Document 10/02/18 15:00 [id number] (Rec: 10/02/18 15:41 [id number] ICU-C06) Document 10/02/18 16:00 [id number] (Rec: 10/02/18 17:19 [id number] IMG-C53) Document 10/02/18 17:00 [id number] (Rec: 10/02/18 17:21 [id number] IMG-C53) Document 10/02/18 18:00 [id number] (Rec: 10/02/18 18:29 [id number] ICU-C06) Document 10/02/18 21:00 [id number] (Rec: 10/02/18 21:28 [id number] ICU-C12) Document 10/02/18 22:34 [id number] (Rec: 10/02/18 22:34 [id number] ICU-C12) Document 10/03/18 00:00 [id number] (Rec: 10/03/18 00:32 [id number] ICU-C12) Document 10/03/18 02:00 [id number] (Rec: 10/03/18 03:57 [id number] ICU-C25) Document 10/03/18 03:00 [id number] (Rec: 10/03/18 03:58 [id number] ICU-C25) Document 10/03/18 04:00 [id number] (Rec: 10/03/18 04:12 [id number] ICU-C25) Document 10/03/18 07:08 [id number] (Rec: 10/03/18 07:08 [id number] ICU-C25) Eyes: No Scleral Icterus Ears/Nose/Mouth/Throat: Clear Oropharnyx Neck: Trachea Midline Cardiovascular: NL Sounds; No Murmurs; No JVD Abdominal: NL Sounds; No Tenderness; No Distention Extremities: No Edema, - Neurological: Alert and Oriented x 3 - Assessment Assessment: 67m with pancreatic cancer with mets to the lung who is currently having an FL who has opted for hospice - Plan Consult Plan (MU): Hospice Plan: Spoke with pt and his . Answered questions about home hospice and prognosis. Referral has been sent from the hospital. Order was requested through PCP who said he hasn't seen pt in a long time and requested we get order from oncology. I left message with oncology to fax an order to hospice. Spoke with Justyn at [facility] about pt situation. Family is processing all that has happened over the weekend. Pt is getting good relief with morphine eager to get home. Hospice eligibility is based on his cancer diagnosis and his recent FL. - Time On Unit Date of Evaluation: 10/05/18 Hospice Consult Time in: 10:00 Hospice Consult Time Out: 11:00 Hospice Consult Time Total: 60 > 50% of Time Spend In Counseling or Coordinating Care: Yes
[2018-10-05] MEDS: NS 0.9% 1000 ML* 1,000 ML IV SCH (12:19)
[2018-10-05] MEDS: Benzonatate CAP* 100 MG PO PRN (18:10)
[2018-10-06] MEDS: Morphine ORAL CONCENTRATE* 5 MG/0.25 ML ORAL.SYRIN PO PRN (03:40)
[2018-10-06] MEDS: NS 0.9% 1000 ML* 1,000 ML IV SCH (04:43)
[2018-10-06] MEDS: Levothyroxine TAB* 75 MCG TAB PO SCH (05:34)
--- NOTE | 2018-10-06 08:51 | DS ---
- Discharge Summary Admission Date: 10/01/18 Discharge Date: 10/06/18 Discharge Diagnosis: 1. NSTEMI: medical management with no further intervention planned due to transition to hospice 2. Metastatic Pancreatic Cancer: transition to comfort measures only 3. DM: cont. diabetic medications Discharge Medications: Medication Instructions Recorded Confirmed Type Levothyroxine TAB* [Synthroid 75 75 mcg PO DAILY 04/20/18 10/01/18 History MCG TAB*] Rosuvastatin (NF) [Crestor (NF)] 40 mg PO DAILY 04/20/18 10/01/18 History Prochlorperazine Maleate 10 mg PO Q6HR PRN 05/11/18 10/01/18 History [Compazine] Torsemide TAB* [Demadex 20 MG*] 20 mg PO BID #60 tab 05/23/18 10/01/18 Rx Aspirin EC TAB* [Ecotrin EC Low 81 mg PO DAILY 10/01/18 10/01/18 History Dose 81 MG*] Bupropion XL* [Wellbutrin XL *] 300 mg PO DAILY 10/01/18 10/01/18 History Insulin Detemir (NF) [Levemir (NF)] 60 unit SUBCUT DAILY 10/01/18 10/01/18 History Insulin Lispro [Humalog Kwikpen 0 unit SUBCUT . DIRECTED 10/01/18 10/01/18 History U-100] Nitroglycerin TAB 0.4 MG* 0.4 mg SL Q5M PRN 10/01/18 10/01/18 History Pioglitazone TAB* [Actos TAB*] 45 mg PO DAILY 10/01/18 10/01/18 History Benzonatate CAP* [Tessalon 100 MG 100 mg PO TID PRN cap 10/05/18 Rx CAP*] Metoprolol Tartrate TAB* 25 mg PO BID #60 tab 10/05/18 Rx [Lopressor TAB*] Morphine ORAL CONCENTRATE* 10 mg PO Q2H PRN #30 oral.syrin 10/05/18 Rx MDD 6 ml Morphine TAB Extended Rel(*) [Ms 30 mg PO Q12H #60 tab.er MDD 60 10/05/18 Rx Contin(*)] Ticagrelor* [Brilinta 90 MG*] 90 mg PO BID tab 10/05/18 Rx Hospital Course: Please see admission note for full H&P, however briefly, Mr. Baugh is well know to our service due to his unfortunate diagnosis of advanced pancreatic cancer, initially diagnosed in the summer of 2016. He presented to the office on 10/01/18, C3D2 mFOLFOX, with new onset left arm pain. In the office he complained of left sided chest pain as well and was noted to be diaphoretic. His continuous 5FU infusion was discontinued and an EKG and troponin were obtained. 12-lead EKG did not reveal any elevated T waves and was felt consistent with prior EKGs, however his troponin returned at 0.3 and the patient was subsequently transferred to the ER due to known CAD with prior stenting. In the ER he received a VQ scan to eval. for PE (hx. of contrast allergy) that was negative for perfusion deficit on the left. He was admitted with tele and plan for echo and repeat troponin. Repeat troponin at 2050 returned at 19.84 and the patient was subsequently transferred to the ICU with nitro and hepatin gtt due to persistent chest pain, this resolved overnight. On 10/02 his echocardiogram revealed EF 35-40% and his troponin peaked @ 57 (5th trop). Cardiology was consulted for management and an MRI of the brain was obtained to evaluate for any [employer] disease (this was negative). Over the next 24 hours Mr. Baugh stabilized, however with his advanced cancer and limited options for further chemotherapy the decision to pursue medical management alone was made. He has opted for hospice on discharge and has a very good understanding of his prognosis and potential for imminent related to a second cardiac event (known asymptomatic V-tach yesterday AM). He feels his pain has been well controlled and is very comfortable with discharge home today with hospice services in place. Plan of care was reviewed at length with both Mr. Baugh and his , Mark. All questions answered. >40 min spent with >50% face to face counseling
[2018-10-06] MEDS: Insulin LISPRO* 1 UNITS UNIT SUBCUT SCH (09:14)
[2018-10-06] MEDS: Insulin GLARGINE(*) 1 UNITS UNIT SUBCUT SCH (09:14)
[2018-10-06] MEDS: Morphine TAB Extended Release (*) 30 MG TAB.ER PO SCH (09:15)
[2018-10-06] MEDS: Metoprolol Tartrate TAB* 25 MG PO SCH (09:15)
[2018-10-06] MEDS: Ticagrelor* 90 MG TAB PO SCH (09:16)
[2018-10-06 09:18] VITALS: BP 109/82
[2018-10-06] MEDS: Torsemide TAB* 20 MG PO SCH (10:39)
[2018-10-06] MEDS: Atorvastatin* 80 MG TAB PO SCH (10:39)
[2018-10-06] MEDS: Aspirin EC TAB* 81 MG TAB.EC PO SCH (10:39)
[2018-10-06] MEDS: BuPROPion XL* 300 MG TAB.XL PO SCH (10:40)
[2018-10-06] MEDS: Pioglitazone TAB* 15 MG PO SCH (10:40)
== END 2018-10-06 11:12 | disposition hospice, home (50) | DRG 281 ==
LOC: ED 14:59 → MEDTELE 16:57 → OBSVTOIN 18:33 → ICU 18:34 → MED 10-03 13:15
PROVIDERS: ADMIT Internal Medicine; ATTEND Internal Medicine Hematology & Oncology
DX: I21.4 Non-ST elevation (NSTEMI) myocardial infarction (principal); C85.90 Non-Hodgkin lymphoma, unspecified, unspecified site; J91.0 Malignant pleural effusion; C25.9 Malignant neoplasm of pancreas, unspecified; C78.00 Secondary malignant neoplasm of unspecified lung; I47.2 Ventricular tachycardia; I25.10 Atherosclerotic heart disease of native coronary artery without angina pectoris; E03.9 Hypothyroidism, unspecified; I45.10 Unspecified right bundle-branch block; I49.3 Ventricular premature depolarization; F31.9 Bipolar disorder, unspecified; E11.22 Type 2 diabetes mellitus with diabetic chronic kidney disease; I12.9 Hypertensive chronic kidney disease with stage 1 through stage 4 chronic kidney disease, or unspecified chronic kidney disease; E78.5 Hyperlipidemia, unspecified; J45.909 Unspecified asthma, uncomplicated; F41.0 Panic disorder [episodic paroxysmal anxiety]; I08.1 Rheumatic disorders of both mitral and tricuspid valves; E66.9 Obesity, unspecified; I25.5 Ischemic cardiomyopathy; Z66 Do not resuscitate; R13.10 Dysphagia, unspecified; Z85.820 Personal history of malignant melanoma of skin; Z82.49 Family history of ischemic heart disease and other diseases of the circulatory system; Z88.0 Allergy status to penicillin; Z88.8 Allergy status to other drugs, medicaments and biological substances; Z88.6 Allergy status to analgesic agent; Z91.041 Radiographic dye allergy status; Z83.3 Family history of diabetes mellitus; Z87.891 Personal history of nicotine dependence; Z95.5 Presence of coronary angioplasty implant and graft; Z80.0 Family history of malignant neoplasm of digestive organs; Z68.33 Body mass index [BMI] 33.0-33.9, adult; Z79.82 Long term (current) use of aspirin; Z79.4 Long term (current) use of insulin
CPT/HCPCS: 36415; 70553; 71045; 78582; 80048; 80053; 82550; 82553; 82565; 83735; 84484; 84520; 85025; 85027; 85610; 85730; 87641; 93005; 93306; 99233; 99239; 99285; A9270-GY; A9540; A9558; A9579; C8929; J1642; J1644; J2270; J3490; Q0164